=== PATIENT | male | born 1960 | race African-American/Black ===

== ENCOUNTER 2018-01-29 12:41 | Outpatient (CLI) | payer MEDICARE ==
--- NOTE | 2018-01-29 14:05 | RAD ---
PA AND LATERAL CHEST: HISTORY: Dyspnea. COMPARISON: 02/20/2017 FINDINGS: Heart size is within normal limits. There are postop sternotomy changes. The lungs are clear of inf iltrates. No signs of failure. IMPRESSION: No active intrathoracic disease. POS: [facility]
== END 2018-01-29 12:42 | disposition home or self-care (01) ==
LOC: RAD 12:41
PROVIDERS: ATTEND Internal Medicine
DX: R06.00 Dyspnea, unspecified (principal)
CPT/HCPCS: 71046

== ENCOUNTER 2019-01-20 07:08 | Emergency (ER) | payer MEDICARE ==
[2019-01-20] MEDS ORDERED: Proparacaine 0.5% Opth 15 ML BOT ONE (07:57)
[2019-01-20] MEDS ORDERED: Fluorescein Opthalmic Strip ONE (07:57)
== END 2019-01-20 08:40 | disposition home or self-care (01) ==
LOC: ERS 07:08
DX: H11.32 Conjunctival hemorrhage, left eye (principal)
CPT/HCPCS: 99282

== ENCOUNTER 2019-01-29 09:58 | Outpatient (CLI) | payer MEDICARE ==
--- NOTE | 2019-01-29 12:21 | RAD ---
CHEST TWO VIEWS: HISTORY: Dyspnea. COMPARISON: 01/29/2018 FINDINGS: The lung farah are clear of infiltrate. The heart and mediastinum are unremarkable. Postop sternot janny change. IMPRESSION: No acute process. POS: [facility]
== END 2019-01-29 09:59 | disposition home or self-care (01) ==
LOC: RAD 09:58
PROVIDERS: ATTEND Internal Medicine
DX: R06.00 Dyspnea, unspecified (principal)
CPT/HCPCS: 71046

== ENCOUNTER 2019-02-06 08:40 | Emergency (ER) | payer MEDICARE ==
[2019-02-06] MEDS ORDERED: Lidocaine 1% w/Epinephrine 1:100K 20 ML VIAL ONE (08:55)
== END 2019-02-06 09:23 | disposition home or self-care (01) ==
LOC: ERS 08:40
DX: L02.11 Cutaneous abscess of neck (principal); E11.9 Type 2 diabetes mellitus without complications; E78.5 Hyperlipidemia, unspecified; I10 Essential (primary) hypertension; J44.9 Chronic obstructive pulmonary disease, unspecified; Z79.82 Long term (current) use of aspirin; Z79.899 Other long term (current) drug therapy; Z79.51 Long term (current) use of inhaled steroids; Z79.52 Long term (current) use of systemic steroids
CPT/HCPCS: 10060; J2001

== ENCOUNTER 2019-07-20 08:30 | Emergency (ER) | payer MEDICARE ==
--- NOTE | 2019-07-20 09:34 | RAD ---
RADIOGRAPH CHEST 1 VIEW: DATE: 07/20/2019 HISTORY: 59-year-old male with dyspnea FINDINGS: There is hyperinflation of the lungs, consistent with COPD. There is no evidence of airspace density, pulmonary edema, or pneumothorax. The lateral costophrenic angles are not effaced. No cardiomegaly or mediastinal widening. Sternotomy wires. Prominent interstitial markings. IMPRESSION: 1) No acute cardiopulmonary findings. 2) emphysema. 3) evidence of previous open-heart surgery.
[2019-07-20 09:41] LABS: #Basophils 0.1 thou/uL (0.0-0.2); #Eosinphils 0.5 thou/uL (0.0-0.7); #Lymphocytes 2.7 thou/uL (1.20-3.40); #Neutrophils 7.2 thou/uL (1.40-6.50); %Basophils 0.8 % (0.0-1.0); %Eosinophils 4.4 % (0.0-10.0); %Lymphocytes 23.3 % (21.0-51.0); %Monocytes 8.8 % (0.0-10.0); %Neutrophils 62.6 % (42.0-75.0); Hemoglobin 17.7 g/dL (14.0-18.0); Mean Corpuscular HGB CONC 32.5 g/dL (32.0-36.0); Mean Corpuscular Hemoglobin 28.7 pg (27.0-31.0); Mean Corpuscular Volume 88.5 fL (78.0-98.0); Platelet Count 341 thou/uL (130-400); RBC Distribution Width 14.4 % (11.5-14.5); Red Blood Cell (RBC) Count 6.15 mill/uL (4.70-6.10); White Blood Cell (WBC) Count 11.5 thou/uL (4.8-10.8)
[2019-07-20 09:55] LABS: ALT (SGPT) 19 U/L (8-55); AST (SGOT) 22 U/L (5-34); Albumin 4.9 g/dL (3.5-5.0); Alkaline Phosphatase 111 U/L (40-110); Anion Gap 13 mmol/L (10-20); BUN (Urea Nitrogen) 11 mg/dL (8.4-25.7); Bilirubin, Total 0.8 mg/dL (0.2-1.2); Calc. Creatinine Clearance 0 mL/min (70-130); Calcium 9.9 mg/dL (7.8-10.44); Carbon Dioxide 30 mmol/L (22-29); Chloride 100 mmol/L (98-107); Estimated GFR-MDRD 82; Globulin 4.1 g/dL (2.4-3.5); Glucose 115 mg/dL (70-105); Potassium 4.4 mmol/L (3.5-5.1); Sodium 139 mmol/L (136-145)
[2019-07-20] MEDS ORDERED: Acetaminophen 500 MG TAB ONE (10:09)
[2019-07-20 10:18] LABS: CKMB 1.3 ng/mL (0-6.6)
--- NOTE | 2019-07-20 11:01 | CT ---
CT PULMONARY ANGIOGRAM WITH IV CONTRAST AND 3D POST PROCESSING: HISTORY: Cough. Shortness of breath. COMPARISON: 08/14/2016 FINDINGS: There is good contrast opacification of the pulmonary arterial vasculature without filling defects to suggest pulmonary embolism. There are vascular calcifications without aneurysmal dilatation of the t horacic aorta. No pleural or pericardial effusions are seen. There are scattered patchy densities in the lung farah bilaterally. Some of these have a nodular harish earance and are new since the last exam. IMPRESSION: 1. No CT evidence of pulmonary embolism. 2. Recommend a follow-up CT scan of the chest without contrast in six weeks, after a course of antibi otics to evaluate infiltrates vs nodularity. CODE T CODE LN POS: [facility]
[2019-07-20] MEDS ORDERED: Cefepime 2 GM VIAL ONE (11:21)
[2019-07-20] MEDS ORDERED: Aspirin Chewable 81 MG TAB ONE (11:21)
[2019-07-20] MEDS ORDERED: Sodium Chloride 0.9% 100 ML ONE (11:22)
[2019-07-20] MEDS ORDERED: Ondansetron ODT 4 MG TAB PO PRN (12:08)
[2019-07-20] MEDS ORDERED: Acetaminophen 325 MG TAB PO PRN (12:08)
--- NOTE | 2019-07-20 12:08 | PDOC.FPRHP ---
- Allergies/Adverse Reactions Allergies Allergy/AdvReac Type Severity Reaction Status Date / Time amoxicillin Allergy Verified 07/15/16 23:26 - Home Medications Medication Instructions Recorded Confirmed Type ALPRAZolam [Xanax] 1 mg PO BID 08/30/15 10/02/16 History Aspirin [Ecotrin Low Strength] 81 mg PO DAILY 08/30/15 10/02/16 History Atorvastatin Calcium [Lipitor] 40 mg PO DAILY 08/30/15 10/02/16 History Carvedilol [Coreg] 12.5 mg PO BID 08/30/15 10/02/16 History HYDROcodone Bit/APAP 10/325 [Lillian] 1 tab PO BID 08/30/15 10/02/16 History Montelukast Sodium [Singulair] 10 mg PO DAILY 08/30/15 10/02/16 History traZODone HCl 50 mg PO HS 08/30/15 10/02/16 History Roflumilast [Daliresp] 500 mcg PO DAILY #30 tablet 12/17/15 10/02/16 Rx Mirtazapine 15 mg PO HS 05/22/16 10/02/16 History predniSONE 5 mg PO DAILY 10/02/16 10/02/16 History Albuterol Sulfate [Albuterol 2.5 mg NEB Q6H PRN 10/06/16 10/06/16 History Sulfate Neb] Arformoterol [Brovana] 15 mcg NEB BID 10/06/16 10/06/16 History Levofloxacin [Levaquin] 750 mg PO 1200 #2 tab 10/06/16 Rx Tiotropium Mccormick [Spiriva] 18 mcg INH DAILY 10/06/16 10/06/16 History Tiotropium [Spiriva Handihaler] 18 mcg INH DAILY 10/06/16 10/06/16 History guaiFENesin ER [Mucinex] 1,200 mg PO Q12HR #30 tab 10/06/16 Rx predniSONE 40 mg PO DAILY #2 tab 10/06/16 Rx - History PMHx: PSHx: FHx: Social: - Vital signs BP: [] HR: [] RR: [] Tmax: [] Pox: []% on [] Wt: [] FMR H&P: Results - Labs Result Diagrams: 07/20/19 09:10 07/20/19 09:10 Lab results: WBC 11.5 thou/uL (4.8-10.8) H 07/20/19 09:10 Hgb 17.7 g/dL (14.0-18.0) 07/20/19 09:10 Hct 54.5 % (42.0-52.0) H 07/20/19 09:10 MCV 88.5 fL (78.0-98.0) 07/20/19 09:10 Plt Count 341 thou/uL (130-400) 07/20/19 09:10 Neutrophils % 62.6 % (42.0-75.0) 07/20/19 09:10 Sodium 139 mmol/L (136-145) 07/20/19 09:10 Potassium 4.4 mmol/L (3.5-5.1) 07/20/19 09:10 Chloride 100 mmol/L (98-107) 07/20/19 09:10 Carbon Dioxide 30 mmol/L (22-29) H 07/20/19 09:10 BUN 11 mg/dL (8.4-25.7) 07/20/19 09:10 Creatinine 1.12 mg/dL (0.7-1.3) 07/20/19 09:10 Glucose 115 mg/dL (70-105) H 07/20/19 09:10 Calcium 9.9 mg/dL (7.8-10.44) 07/20/19 09:10 Total Bilirubin 0.8 mg/dL (0.2-1.2) 07/20/19 09:10 AST 22 U/L (5-34) 07/20/19 09:10 ALT 19 U/L (8-55) 07/20/19 09:10 Alkaline Phosphatase 111 U/L (40-110) H 07/20/19 09:10 CK-MB (CK-2) 1.3 ng/mL (0-6.6) 07/20/19 09:10 Serum Total Protein 9.0 g/dL (6.0-8.3) H 07/20/19 09:10 Albumin 4.9 g/dL (3.5-5.0) 07/20/19 09:10 FMR H&P: Upper Level - Plan Date/Time: 07/20/19 1208 I, [], have evaluated this patient and agree with findings/plan as outlined by hospitality internship resident. Pertinent changes/additions are listed here.
[2019-07-20] MEDS ORDERED: Magnesium 2 GM/50 ML BAG (IN WATER) ONE (12:21)
[2019-07-20 12:56] LABS: Troponin I Less than 0.010 ng/mL (< 0.028)
[2019-07-20] MEDS ORDERED: Vancomycin 1.5 GRAM/300 ML BAG 1.5 GM in Premix Bag 1 BAG IVPB SCH (14:45)
[2019-07-20] MEDS ORDERED: HYDROcodone/Acetaminophen 5/325 mg Tablet ONE (15:20)
[2019-07-20 15:51] LABS: Troponin I Less than 0.010 ng/mL (< 0.028)
[2019-07-20] MEDS ORDERED: Cefepime 2 GM in Sodium Chloride 0.9% 100 ML IVPB SCH (23:00)
[2019-07-21] MEDS ORDERED: Enoxaparin Sodium 40 MG/0.4 ML SYRINGE SC SCH (09:00)
== END 2019-07-20 16:50 | disposition short-term general hospital (02) ==
LOC: ERS 08:30 → UNDOADMIN 11:35 → ERHOLD 11:35
DX: J18.9 Pneumonia, unspecified organism (principal); R79.89 Other specified abnormal findings of blood chemistry; E11.9 Type 2 diabetes mellitus without complications; E78.5 Hyperlipidemia, unspecified; E78.00 Pure hypercholesterolemia, unspecified; I10 Essential (primary) hypertension; Z79.899 Other long term (current) drug therapy; Z79.51 Long term (current) use of inhaled steroids
CPT/HCPCS: 36415; 71045; 71275; 80053; 82553; 84145; 84484; 85025; 87040; 93005; 94640; 96365; 96366; 96367; 96368; J0692; J1956; J3475; J3490; J7620

== ENCOUNTER 2019-08-02 07:32 | Emergency (ER) | payer MEDICARE ==
[2019-08-02 08:12] LABS: #Basophils 0.1 thou/uL (0.0-0.2); #Eosinphils 0.2 thou/uL (0.0-0.7); #Lymphocytes 0.5 thou/uL (1.20-3.40); #Monocytes 0.4 thou/uL (0.11-0.59); #Neutrophils 9.3 thou/uL (1.40-6.50); %Basophils 1.2 % (0.0-1.0); %Eosinophils 1.7 % (0.0-10.0); %Lymphocytes 4.5 % (21.0-51.0); %Monocytes 3.5 % (0.0-10.0); Hemoglobin 15.5 g/dL (14.0-18.0); Mean Corpuscular HGB CONC 32.4 g/dL (32.0-36.0); Mean Corpuscular Hemoglobin 27.9 pg (27.0-31.0); Mean Corpuscular Volume 86.1 fL (78.0-98.0); Mean Platelet Volume 8.4 fL (7.4-10.4); Platelet Count 209 thou/uL (130-400); RBC Distribution Width 14.1 % (11.5-14.5); Red Blood Cell (RBC) Count 5.54 mill/uL (4.70-6.10); White Blood Cell (WBC) Count 10.5 thou/uL (4.8-10.8)
--- NOTE | 2019-08-02 08:18 | RAD ---
XR Chest Pa Lat STANDARD History: Bilateral lung transplant. Dyspnea Comparison: Radiograph 2017 and 2019 Findings: Mild fibrotic changes peripheral aspect of the upper lobes. No pneumothorax. No confluent a irspace consolidation. Multiple midline sternotomy wires. Impression: No acute intrathoracic abnormality. No definite evidence for transplant rejection.
[2019-08-02 08:31] LABS: ALT (SGPT) 39 U/L (8-55); AST (SGOT) 30 U/L (5-34); Albumin 4.1 g/dL (3.5-5.0); Alkaline Phosphatase 109 U/L (40-110); Anion Gap 12 mmol/L (10-20); BUN (Urea Nitrogen) 9 mg/dL (8.4-25.7); Bilirubin, Total 0.6 mg/dL (0.2-1.2); Calc. Creatinine Clearance 0 mL/min (70-130); Carbon Dioxide 30 mmol/L (22-29); Chloride 91 mmol/L (98-107); Estimated GFR-MDRD Greater than 90; Globulin 3.5 g/dL (2.4-3.5); Glucose 134 mg/dL (70-105); Potassium 4.1 mmol/L (3.5-5.1); Protein, Total 7.6 g/dL (6.0-8.3); Sodium 129 mmol/L (136-145)
[2019-08-02] MEDS ORDERED: methylPREDNISolone Sod Succ/PF 125 MG/2 ML VIAL ONE (09:16)
[2019-08-02] MEDS ORDERED: HYDROcodone/Acetaminophen 10/325 mg Tablet ONE (11:22)
== END 2019-08-02 11:34 | disposition short-term general hospital (02) ==
LOC: ERS 07:32
DX: J44.1 Chronic obstructive pulmonary disease with (acute) exacerbation (principal); E11.9 Type 2 diabetes mellitus without complications; E78.5 Hyperlipidemia, unspecified; E78.00 Pure hypercholesterolemia, unspecified; I10 Essential (primary) hypertension; Z79.899 Other long term (current) drug therapy; Z79.82 Long term (current) use of aspirin; Z79.51 Long term (current) use of inhaled steroids
CPT/HCPCS: 36415; 71046; 80053; 83880; 84484; 85025; 93005; 96374; J2930

== ENCOUNTER 2019-08-12 15:53 | Emergency (ER) | payer MEDICARE ==
[2019-08-12 17:46] LABS: #Eosinphils 0.1 thou/uL (0.0-0.7); #Lymphocytes 0.6 thou/uL (1.20-3.40); #Monocytes 0.3 thou/uL (0.11-0.59); #Neutrophils 8.9 thou/uL (1.40-6.50); %Basophils 0.2 % (0.0-1.0); %Eosinophils 0.8 % (0.0-10.0); %Lymphocytes 5.6 % (21.0-51.0); %Monocytes 3.4 % (0.0-10.0); %Neutrophils 90.1 % (42.0-75.0); Hemoglobin 14.9 g/dL (14.0-18.0); Mean Corpuscular HGB CONC 33.3 g/dL (32.0-36.0); Mean Corpuscular Hemoglobin 29.4 pg (27.0-31.0); Mean Corpuscular Volume 88.3 fL (78.0-98.0); Mean Platelet Volume 7.4 fL (7.4-10.4); Platelet Count 310 thou/uL (130-400); RBC Distribution Width 14.7 % (11.5-14.5); Red Blood Cell (RBC) Count 5.05 mill/uL (4.70-6.10); White Blood Cell (WBC) Count 9.9 thou/uL (4.8-10.8)
--- NOTE | 2019-08-12 18:05 | RAD ---
CHEST ONE VIEW: 08/12/19 INDICATION: Difficulty breathing with history of a lung transplant. COMPARISON: Prior exam dated 08/02/19. FINDINGS: Midline sternotomy changes are similar appearing. Left hilar surgical clips are stable appearing. Chr onic increased interstitial lung markings are stable appearing. No confluent air space opacity is no adebayo. There is a tiny left pleural effusion which is near. No pneumothorax is evident. No acute osseo us abnormality is evident. IMPRESSION: 1. Stable coarse interstitial lung markings without confluent air space opacity. 2. New small left pleural effusion. POS: [facility]
[2019-08-12 18:09] LABS: ALT (SGPT) 31 U/L (8-55); AST (SGOT) 38 U/L (5-34); Albumin 4.3 g/dL (3.5-5.0); Alkaline Phosphatase 101 U/L (40-110); Anion Gap 15 mmol/L (10-20); BUN (Urea Nitrogen) 17 mg/dL (8.4-25.7); Bilirubin, Total 0.8 mg/dL (0.2-1.2); CK (CPK) 58 U/L (30-200); Calc. Creatinine Clearance 0 mL/min (70-130); Calcium 9.2 mg/dL (7.8-10.44); Carbon Dioxide 29 mmol/L (22-29); Chloride 91 mmol/L (98-107); Estimated GFR-MDRD Greater than 90; Globulin 3.7 g/dL (2.4-3.5); Glucose 89 mg/dL (70-105); Potassium 5.4 mmol/L (3.5-5.1); Sodium 130 mmol/L (136-145)
[2019-08-12] MEDS ORDERED: Dexamethasone 4 mg/ml Vial ONE (18:23)
== END 2019-08-12 20:01 | disposition home or self-care (01) ==
LOC: ERS 15:53
DX: J44.1 Chronic obstructive pulmonary disease with (acute) exacerbation (principal); E11.9 Type 2 diabetes mellitus without complications; E78.5 Hyperlipidemia, unspecified; I10 Essential (primary) hypertension; Z79.891 Long term (current) use of opiate analgesic; Z79.82 Long term (current) use of aspirin; Z79.51 Long term (current) use of inhaled steroids
CPT/HCPCS: 71045; 80053; 82550; 83880; 84484; 85025; 93005; 94640; 94760; 96361; 96374; J1100; J7620

== ENCOUNTER 2019-08-13 10:06 | Emergency (ER) | payer MEDICARE ==
[2019-08-13] MEDS ORDERED: Albuterol Sulfate 2.5 mg/3 ml Neb ONE ×4 (10:37→12:07)
[2019-08-13] MEDS ORDERED: Ipratropium Bromide 2.5 ml Neb ONE (10:37)
[2019-08-13 10:48] LABS: Actual Bicarbonate (HCO3a) 24.1 mEq/L (22-28); Analyzer IN Cardio ER; Base Excess (BEa) -1.7 mEq/L (-2.0 to +3.0); CO2 Tension 45.1 mmHg (35.0-45.0); Calcium, Ionized 1.15 mmol/L (1.12-1.30); Carboxyhemoglobin (COHb) 0.6 gm% (0.0-3.0); Hemoglobin (Hb) 13.5 g/dL (14.0-18.0); O2 Tension (PaO2) 111.9 mmHg (80.0-100.0); pH, Arterial 7.35 (7.35-7.45)
[2019-08-13 10:52] LABS: ALV-art Gradient 88.405 (0-20); Puncture Site LRA
[2019-08-13 11:08] LABS: Hemoglobin 13.3 g/dL (14.0-18.0); Mean Corpuscular Hemoglobin 29.1 pg (27.0-31.0); Mean Platelet Volume 7.4 fL (7.4-10.4); Platelet Count 302 thou/uL (130-400); RBC Distribution Width 14.8 % (11.5-14.5); Red Blood Cell (RBC) Count 4.59 mill/uL (4.70-6.10); White Blood Cell (WBC) Count 4.5 thou/uL (4.8-10.8)
[2019-08-13 11:14] LABS: PTT 23.4 SEC (22.9-36.1); Prothrombin Time 13.4 SEC (12.0-14.7)
[2019-08-13 11:15] LABS: D-Dimer Test 0.34 *mcg/mL (0.27-0.43)
[2019-08-13 11:29] LABS: Band 10 % (5-11); Lymphocytes 1 % (21-51); MDiff Complete? YES; Monocytes 2 % (0-10); Neutrophil 84 % (42-75); Platelet Morphology Comment Appears Adequate; Polychromasia SLIGHT = 2-3 cells (100X) (0-2/hpf); Reactive Lymphocytes 3 % (0-10)
[2019-08-13 11:35] LABS: ALT (SGPT) 29 U/L (8-55); AST (SGOT) 29 U/L (5-34); Albumin 4.2 g/dL (3.5-5.0); Alkaline Phosphatase 96 U/L (40-110); Anion Gap 17 mmol/L (10-20); BUN (Urea Nitrogen) 22 mg/dL (8.4-25.7); Bilirubin, Total 0.8 mg/dL (0.2-1.2); Calc. Creatinine Clearance 0 mL/min (70-130); Calcium 8.8 mg/dL (7.8-10.44); Carbon Dioxide 25 mmol/L (22-29); Chloride 93 mmol/L (98-107); Estimated GFR-MDRD 89; Globulin 2.5 g/dL (2.4-3.5); Glucose 176 mg/dL (70-105); Potassium 4.8 mmol/L (3.5-5.1); Protein, Total 6.7 g/dL (6.0-8.3); Sodium 130 mmol/L (136-145)
--- NOTE | 2019-08-13 11:43 | RAD ---
CHEST ONE VIEW: HISTORY: Acute dyspnea. COMPARISON: Radiograph from the prior day. FINDINGS: A catheter projects over the left hemithorax, of unknown significance. There is some scarring in both lung bases. No pneumothorax or consolidation. Trace left effusion. IMPRESSION: 1. Catheter projects over the left lateral hemithorax, of unknown significance. 2. Trace left effusion is improving. POS: [facility]
[2019-08-13] MEDS ORDERED: Morphine 4 MG/ML VIAL ONE (13:27)
== END 2019-08-13 14:23 | disposition short-term general hospital (02) ==
LOC: ERS 10:06
DX: R06.00 Dyspnea, unspecified (principal); E11.9 Type 2 diabetes mellitus without complications; E78.5 Hyperlipidemia, unspecified; E78.00 Pure hypercholesterolemia, unspecified; I10 Essential (primary) hypertension; J44.9 Chronic obstructive pulmonary disease, unspecified; Z79.51 Long term (current) use of inhaled steroids; Z79.899 Other long term (current) drug therapy; Z79.82 Long term (current) use of aspirin; Z79.891 Long term (current) use of opiate analgesic
CPT/HCPCS: 36415; 71045; 80053; 82805; 83880; 84484; 85025; 85379; 93005; 94640; 94644; 96374; J2270; J7611

== ENCOUNTER 2019-08-28 21:11 | Emergency (ER) | payer MEDICARE ==
[2019-08-28] MEDS ORDERED: Naloxone HCl 0.4 mg/ml Vial ONE (21:41)
[2019-08-28 22:09] LABS: #Basophils 0.1 thou/uL (0.0-0.2); #Eosinphils 0.1 thou/uL (0.0-0.7); #Lymphocytes 0.6 thou/uL (1.20-3.40); #Monocytes 0.7 thou/uL (0.11-0.59); #Neutrophils 11.2 thou/uL (1.40-6.50); %Basophils 0.5 % (0.0-1.0); %Eosinophils 0.6 % (0.0-10.0); %Lymphocytes 4.5 % (21.0-51.0); %Monocytes 5.2 % (0.0-10.0); %Neutrophils 89.3 % (42.0-75.0); Hemoglobin 13.4 g/dL (14.0-18.0); Mean Corpuscular HGB CONC 31.5 g/dL (32.0-36.0); Mean Corpuscular Hemoglobin 29.5 pg (27.0-31.0); Mean Corpuscular Volume 93.6 fL (78.0-98.0); Mean Platelet Volume 8.2 fL (7.4-10.4); Platelet Count 201 thou/uL (130-400); RBC Distribution Width 14.6 % (11.5-14.5); Red Blood Cell (RBC) Count 4.53 mill/uL (4.70-6.10); White Blood Cell (WBC) Count 12.5 thou/uL (4.8-10.8)
--- NOTE | 2019-08-28 22:11 | RAD ---
XR Chest 1 View Portable HISTORY: Dyspnea COMPARISON: 08/13/2019 FINDINGS: The heart size is normal. Changes of median sternotomy again seen. Chronic parenchymal flores ges are stable. The lungs are well expanded without focal areas of consolidation, pneumothorax or pleural effusions. IMPRESSION: No radiographic evidence of acute cardiopulmonary process.
[2019-08-28] MEDS ORDERED: methylPREDNISolone Sod Succ/PF 125 MG/2 ML VIAL ONE (22:18)
[2019-08-28 22:29] LABS: Actual Bicarbonate (HCO3a) 42.2 mEq/L (22-28); Analyzer IN Cardio ER; Base Excess (BEa) 11.7 mEq/L (-2.0 to +3.0); Calcium, Ionized 1.19 mmol/L (1.12-1.30); Carboxyhemoglobin (COHb) 0.6 gm% (0.0-3.0); Hemoglobin (Hb) 12.8 g/dL (14.0-18.0); O2 Tension (PaO2) 89.1 mmHg (80.0-100.0); Potassium - ABG Lab 4.32 mmol/L (3.70-5.30); pH, Arterial 7.28 (7.35-7.45)
[2019-08-28 22:40] LABS: ALT (SGPT) 19 U/L (8-55); AST (SGOT) 41 U/L (5-34); Albumin 4.2 g/dL (3.5-5.0); Alkaline Phosphatase 111 U/L (40-110); BUN (Urea Nitrogen) 11 mg/dL (8.4-25.7); Bilirubin, Total 0.3 mg/dL (0.2-1.2); CK (CPK) 60 U/L (30-200); Calc. Creatinine Clearance 0 mL/min (70-130); Calcium 9.1 mg/dL (7.8-10.44); Estimated GFR-MDRD Greater than 90; Globulin 3.5 g/dL (2.4-3.5); Glucose 209 mg/dL (70-105); Lipase 11 U/L (8-78); Protein, Total 7.7 g/dL (6.0-8.3)
[2019-08-28 22:41] LABS: Anion Gap 17 mmol/L (10-20); Carbon Dioxide 34 mmol/L (22-29); Chloride 87 mmol/L (98-107); Sodium 132 mmol/L (136-145)
[2019-08-28 22:44] LABS: ALV-art Gradient 80.975 (0-20); CO2 Tension 92.1 mmHg (35.0-45.0); Puncture Site RRA
[2019-08-28] MEDS ORDERED: Calcium Chloride 1 GM/10 ML Abboject SYRINGE ONE (23:58)
[2019-08-28] MEDS ORDERED: Dextrose 50% Abboject 50 ML SYRINGE ONE (23:58)
[2019-08-28] MEDS ORDERED: Insulin Regular 300 UNITS/3 ML VIAL ONE (23:58)
== END 2019-08-29 02:07 | disposition short-term general hospital (02) ==
LOC: ERS 21:11
DX: R06.00 Dyspnea, unspecified (principal); E11.9 Type 2 diabetes mellitus without complications; E78.5 Hyperlipidemia, unspecified; I10 Essential (primary) hypertension; E78.00 Pure hypercholesterolemia, unspecified; J44.9 Chronic obstructive pulmonary disease, unspecified; Z79.82 Long term (current) use of aspirin; Z79.899 Other long term (current) drug therapy; Z79.891 Long term (current) use of opiate analgesic
CPT/HCPCS: 36416; 71045; 80053; 82550; 82805; 83690; 83880; 84484; 85025; 93005; 94644; 94660; 94760; 96374; 96375; J1815; J2310; J2930; J7620

== ENCOUNTER 2019-09-18 08:44 | Emergency (ER) | payer MEDICARE ==
--- NOTE | 2019-09-18 09:36 | RAD ---
Portable frontal chest radiograph: 09/18/2019 COMPARISON: 08/28/2019 HISTORY: Cough FINDINGS: Stable midline sternotomy wires. Stable mild increase in interstitial density with pulmonar y hyperinflation. No pneumothorax, pleural fluid, focal consolidation, or alveolar edema. IMPRESSION: Chronic findings as detailed above. No acute findings.
[2019-09-18] MEDS ORDERED: Dexamethasone 4 mg/ml Vial ONE (10:02)
[2019-09-18 10:04] LABS: ALT (SGPT) 36 U/L (8-55); AST (SGOT) 30 U/L (5-34); Albumin 4.3 g/dL (3.5-5.0); Alkaline Phosphatase 92 U/L (40-110); Anion Gap 14 mmol/L (10-20); BUN (Urea Nitrogen) 7 mg/dL (8.4-25.7); Bilirubin, Total 0.5 mg/dL (0.2-1.2); Calc. Creatinine Clearance 0 mL/min (70-130); Calcium 9.6 mg/dL (7.8-10.44); Carbon Dioxide 35 mmol/L (22-29); Chloride 97 mmol/L (98-107); Estimated GFR-MDRD Greater than 90; Globulin 2.4 g/dL (2.4-3.5); Glucose 162 mg/dL (70-105); Potassium 3.9 mmol/L (3.5-5.1); Protein, Total 6.7 g/dL (6.0-8.3); Sodium 142 mmol/L (136-145)
[2019-09-18 10:17] LABS: #Eosinphils 0.1 thou/uL (0.0-0.7); #Lymphocytes 0.8 thou/uL (1.20-3.40); #Monocytes 0.9 thou/uL (0.11-0.59); #Neutrophils 9.9 thou/uL (1.40-6.50); %Basophils 0.2 % (0.0-1.0); %Eosinophils 0.5 % (0.0-10.0); %Lymphocytes 6.6 % (21.0-51.0); %Monocytes 7.6 % (0.0-10.0); %Neutrophils 85.1 % (42.0-75.0); Hemoglobin 13.9 g/dL (14.0-18.0); Mean Corpuscular HGB CONC 33.3 g/dL (32.0-36.0); Mean Corpuscular Hemoglobin 30.6 pg (27.0-31.0); Mean Corpuscular Volume 91.7 fL (78.0-98.0); Mean Platelet Volume 8.3 fL (7.4-10.4); Platelet Count 172 thou/uL (130-400); RBC Distribution Width 16.3 % (11.5-14.5); Red Blood Cell (RBC) Count 4.54 mill/uL (4.70-6.10); White Blood Cell (WBC) Count 11.7 thou/uL (4.8-10.8)
[2019-09-18 10:27] LABS: CK (CPK) 72 U/L (30-200); Lipase 13 U/L (8-78)
== END 2019-09-18 13:10 | disposition home or self-care (01) ==
LOC: ERS 08:44
DX: J44.1 Chronic obstructive pulmonary disease with (acute) exacerbation (principal); E11.622 Type 2 diabetes mellitus with other skin ulcer; L89.152 Pressure ulcer of sacral region, stage 2; I10 Essential (primary) hypertension; E78.5 Hyperlipidemia, unspecified; E78.00 Pure hypercholesterolemia, unspecified
CPT/HCPCS: 36415; 71045; 80053; 82550; 83605; 83690; 83880; 84484; 85025; 87040; 93005; 94640; 96360; 96361; J1100; J7620

== ENCOUNTER 2019-09-20 08:52 | Inpatient (IN) | payer MEDICARE ==
[2019-09-20] MEDS ORDERED: Lorazepam 2 MG/ML VIAL ONE ×3 (08:56→11:23)
[2019-09-20] MEDS ORDERED: Propofol 1,000 MG/100 ML VIAL IV ONE (09:05)
--- NOTE | 2019-09-20 09:16 | RAD ---
Portable chest: HISTORY: Postintubation COMPARISON: 09/18/2019 FINDINGS: Lung farah are clear. Heart and mediastinum appear unremarkable. Postop sternotomy change. Vascularity is normal. ET tube is in place with tip above iram. Visualized osseous structures unremarkable. IMPRESSION: No acute finding
[2019-09-20 09:21] LABS: Actual Bicarbonate (HCO3a) 31.4 mEq/L (22-28); Analyzer IN Cardio ER; Base Excess (BEa) 6.9 mEq/L (-2.0 to +3.0); CO2 Tension 44.3 mmHg (35.0-45.0); Calcium, Ionized 1.12 mmol/L (1.12-1.30); Hemoglobin (Hb) 12.4 g/dL (14.0-18.0); O2 Tension (PaO2) 455.3 mmHg (80.0-100.0); Potassium - ABG Lab 3.05 mmol/L (3.70-5.30); pH, Arterial 7.47 (7.35-7.45)
[2019-09-20 09:22] LABS: #Lymphocytes 0.8 thou/uL (1.20-3.40); #Monocytes 0.9 thou/uL (0.11-0.59); #Neutrophils 9.4 thou/uL (1.40-6.50); %Basophils 0.3 % (0.0-1.0); %Eosinophils 0.2 % (0.0-10.0); %Lymphocytes 7.5 % (21.0-51.0); %Monocytes 7.7 % (0.0-10.0); %Neutrophils 84.3 % (42.0-75.0); Hemoglobin 12.9 g/dL (14.0-18.0); Mean Corpuscular HGB CONC 32.9 g/dL (32.0-36.0); Mean Corpuscular Hemoglobin 30.1 pg (27.0-31.0); Mean Corpuscular Volume 91.3 fL (78.0-98.0); Mean Platelet Volume 8.8 fL (7.4-10.4); Platelet Count 176 thou/uL (130-400); Red Blood Cell (RBC) Count 4.28 mill/uL (4.70-6.10); White Blood Cell (WBC) Count 11.1 thou/uL (4.8-10.8)
[2019-09-20 09:26] LABS: ALV-art Gradient 59.725 (0-20); Puncture Site RRA
[2019-09-20] MEDS ORDERED: Fentanyl 20 mcg/ml (100 ml CADD) IV PRN (09:30)
[2019-09-20 09:37] LABS: Acetaminophen Less than 6.0 mcg/mL (10.0-30.0); Alcohol Less than 10 mg/dL (Less than 10); CK (CPK) 41 U/L (30-200); Salicylate Less than 8.0 mg/dL (15.0-30.0)
[2019-09-20 09:38] LABS: ALT (SGPT) 27 U/L (8-55); AST (SGOT) 26 U/L (5-34); Albumin 3.7 g/dL (3.5-5.0); Alkaline Phosphatase 75 U/L (40-110); Anion Gap 14 mmol/L (10-20); BUN (Urea Nitrogen) 11 mg/dL (8.4-25.7); Bilirubin, Total 0.4 mg/dL (0.2-1.2); Calc. Creatinine Clearance 0 mL/min (70-130); Calcium 8.7 mg/dL (7.8-10.44); Carbon Dioxide 35 mmol/L (22-29); Chloride 94 mmol/L (98-107); Estimated GFR-MDRD Greater than 90; Globulin 2.2 g/dL (2.4-3.5); Glucose 122 mg/dL (70-105); Potassium 4.7 mmol/L (3.5-5.1); Protein, Total 5.9 g/dL (6.0-8.3); Sodium 138 mmol/L (136-145)
[2019-09-20] MEDS ORDERED: Lorazepam 2 MG/ML VIAL SLOW IVP SCH (09:45)
[2019-09-20] MEDS ORDERED: Rocuronium Bromide 50 MG/5 ML VIAL IVP SCH (09:45)
[2019-09-20] MEDS ORDERED: Ketamine 50 MG/ML (10ML VIAL) SLOW IVP SCH (09:45)
[2019-09-20 09:55] LABS: Bilirubin Negative (Negative); Blood, Urine Negative (Negative); Clarity Clear (Clear); Glucose, Urine (Dipstick) Normal (Negative); Leukocyte Negative Leu/uL (Negative); Nitrite Negative (Negative); Protein, Urine (Dipstick) Negative (Neg-Trace); Urobilinogen Normal mg/dL (Less than 2)
--- NOTE | 2019-09-20 10:06 | CT ---
CT Brain WO Con History: Hypoglycemia. Altered mental status Comparison: None. Findings: No acute hemorrhage or infarct. No midline shift or mass effect. Ventricular size and extra -axial CSF spaces are normal. Calvarium is intact. Paranasal sinuses and mastoids are clear. Impression: No acute intracranial abnormality.
[2019-09-20 10:07] LABS: Amphetamine Not Detected (NotDetected); Barbiturates Screen Not Detected (NotDetected); Benzodiazepine Screen Not Detected (NotDetected); Cocaine Metabolite Screen Not Detected (NotDetected); Medtox Control Line Valid? VALID (VALID); Medtox Reader # READER 1; Methadone Not Detected (NotDetected); Methamphetamine Not Detected (NotDetected); Opiate Screen Detected (NotDetected); Oxycodone Screen Not Detected (NotDetected); Phencyclidine (PCP) Not Detected (NotDetected); THC/Cannabinoid Screen Not Detected (NotDetected); Tricyclic Screen Not Detected (NotDetected)
--- NOTE | 2019-09-20 11:03 | PDOC.FPRHP ---
- History of Present Illness Chief Complaint: found down History of Present Illness: Mr. Turcios is a 59yoM with a PMH significant for severe COPD requiring double lung transplant, DMII, HTN, and anxiety/depression who presents to the ED via EMS after being found down in his home this morning. He was last seen normal at 10pm last night. Upon arrival EMS noted his blood glucose to be 24 and gave a dose of D10 and Glucagon, he was still unresponsive. On arrival to the ED he was still unresponsive and having seizure like activity which prompted the ER doc to intubate him, sedate him, and start a D5 1/2NS drip. The patient is currently intubated and sedated and is unable to give history. Additional information was gathered from medical records and family members. He has a history of a double lung transplant in 2017 for severe COPD. He has a diagnosis of DM II and takes insulin. He had a hemicolectomy for significant lower GI bleeding. He takes medications for blood pressure, anxiety and depression, and GERD. Patient's family reports he has had a productive cough. ED Course: Intubated and sedated, 2L NS, D5 1/2 NS started at 125, Fentanyl gtt, rocuronium , ketamine, and lorazepam. - Allergies/Adverse Reactions Allergies Allergy/AdvReac Type Severity Reaction Status Date / Time amoxicillin Allergy Verified 07/15/16 23:26 - Home Medications Medication Instructions Recorded Confirmed Type Aspirin [Ecotrin Low Strength] 81 mg PO DAILY 08/30/15 10/02/16 History Atorvastatin Calcium [Lipitor] 40 mg PO DAILY 08/30/15 10/02/16 History traZODone HCl 50 mg PO HS 08/30/15 10/02/16 History Albuterol Sulfate [Albuterol 2.5 mg NEB Q6H PRN 10/06/16 10/06/16 History Sulfate Neb] Albuterol Sulfate [Ventolin Hfa] 18 gm IH 09/20/19 History Amlodipine [Norvasc] 5 mg PO DAILY 09/20/19 History Azithromycin 250 mg PO MWF 09/20/19 History Cyclobenzaprine [Flexeril] 10 mg PO PRN PRN 09/20/19 History DULoxetine [Cymbalta] 60 mg PO DAILY 09/20/19 History Fludrocortisone Acetate [Florinef] 0.1 mg PO DAILY 09/20/19 History Metoprolol Succinate [Toprol XL] 100 mg PO DAILY 09/20/19 History Pantoprazole [Protonix] 40 mg PO DAILY 09/20/19 History Sulfamethoxazole/Trimethoprim 1 tab PO MWF 09/20/19 History [Bactrim DS] Tacrolimus [Prograf] 0.5 mg PO QAM 09/20/19 History Verapamil [Calan] 120 mg PO 09/20/19 History Voriconazole 200 mg PO DAILY 09/20/19 History predniSONE [Prednisone] 10 mg PO DAILY 09/20/19 History valGANciclovir HCl [Valcyte] 450 mg PO BID 09/20/19 History - History PMHx: DM II Major depressive disorder Anxiety JOSE HTN S/p lung transplantation GERD PSHx: Colonoscopy 2014 Disc fusion 2002 Double lung transplant 2017 R Hemicolectomy 2015 Coronary artery stent 2009 FHx: COPD CHF Social: Former smoker, quit 2009. No alcohol or illicit drug use. - Review of Systems ROS unobtainable: due to endotracheal tube - Vital signs 62Kg, BP: 116/80, Pulse: 75, Resp: 18, Temp: 95.9 (Criticore Temp), Pain: 0 FLACC, O2 sat: 97 on (Ventilator SIMV 18, 500, 10/5, 40%FiO2) - Physical Exam -Constitutional: Intubated and sedated HEENT: normocephalic and atraumatic, PERRLA, conjunctiva clear, normal nasal mucosa, MMM Neck: trachea midline Heart: RRR, normal S1/S2, no murmurs/rubs/gallops, pulses present, no edema Lungs: CTAB, good air movement, no rales/rhonchi, no wheezing Abdomen: soft, bowel sounds present, no masses/distention Musculoskeletal: normal structure -Neurological: Unable to assess Skin: no rash/lesions, capillary refill <2 seconds Heme/Lymphatic: no unusual bruising or bleeding, no purpura FMR H&P: Results - Labs Result Diagrams: 09/20/19 09:13 09/20/19 09:13 Lab results: WBC 11.1 thou/uL (4.8-10.8) H 09/20/19 09:13 Hgb 12.9 g/dL (14.0-18.0) L 09/20/19 09:13 Hct 39.1 % (42.0-52.0) L 09/20/19 09:13 MCV 91.3 fL (78.0-98.0) 09/20/19 09:13 Plt Count 176 thou/uL (130-400) 09/20/19 09:13 Neutrophils % 84.3 % (42.0-75.0) H 09/20/19 09:13 ABG pH 7.47 (7.35-7.45) H 09/20/19 09:20 ABG pCO2 44.3 mmHg (35.0-45.0) 09/20/19 09:20 ABG pO2 455.3 mmHg (80.0-100.0) H 09/20/19 09:20 Sodium 138 mmol/L (136-145) 09/20/19 09:13 Potassium 4.7 mmol/L (3.5-5.1) 09/20/19 09:13 Chloride 94 mmol/L (98-107) L 09/20/19 09:13 Carbon Dioxide 35 mmol/L (22-29) H 09/20/19 09:13 BUN 11 mg/dL (8.4-25.7) 09/20/19 09:13 Creatinine 0.69 mg/dL (0.7-1.3) L 09/20/19 09:13 Glucose 122 mg/dL (70-105) H 09/20/19 09:13 Calcium 8.7 mg/dL (7.8-10.44) 09/20/19 09:13 Total Bilirubin 0.4 mg/dL (0.2-1.2) 09/20/19 09:13 AST 26 U/L (5-34) 09/20/19 09:13 ALT 27 U/L (8-55) 09/20/19 09:13 Alkaline Phosphatase 75 U/L (40-110) 09/20/19 09:13 Creatine Kinase 41 U/L (30-200) 09/20/19 09:13 Serum Total Protein 5.9 g/dL (6.0-8.3) L 09/20/19 09:13 Albumin 3.7 g/dL (3.5-5.0) 09/20/19 09:13 Urine Ketones Negative mg/dL (Negative) 09/20/19 09:19 Urine Blood Negative (Negative) 09/20/19 09:19 Urine Nitrite Negative (Negative) 09/20/19 09:19 Ur Leukocyte Esterase Negative Victor M/uL (Negative) 09/20/19 09:19 - Radiology Interpretation CT scan - head Status: report reviewed by me (Impression: No acute intracranial abnormality) Chest x-ray Status: report reviewed by me (IMPRESSION: No acute finding) FMR H&P: A/P - Problem List (1) Seizure Current Visit: Yes Status: Acute Code(s): R56.9 - UNSPECIFIED CONVULSIONS (2) Hypoglycemia Current Visit: Yes Status: Acute Code(s): E16.2 - HYPOGLYCEMIA, UNSPECIFIED (3) Altered mental state Current Visit: Yes Status: Acute Code(s): R41.82 - ALTERED MENTAL STATUS, UNSPECIFIED (4) Anxiety and depression Current Visit: No Status: Chronic (5) Coronary artery disease Current Visit: No Status: Chronic Code(s): I25.10 - ATHSCL HEART DISEASE OF [place] CORONARY ARTERY W/O ANG PCTRS (6) HLD (hyperlipidemia) Current Visit: No Status: Chronic Code(s): E78.5 - HYPERLIPIDEMIA, UNSPECIFIED Qualifiers: (7) HTN (hypertension) Current Visit: No Status: Chronic Code(s): I10 - ESSENTIAL (PRIMARY) HYPERTENSION Qualifiers: - Plan Acute hypoxic respiratory failure Intubated - On Fentanyl for sedation. - Dr. Judge consulted, appreciate recommendations. AMS, found down Hypoglycemic - Blood glucose responded to D10 and D5 1/2 NS. Will continue @ 100mL/hour with q1hr accuchecks until stable. - Unknown dosage of insulin taken last night, unknown amount of oral intake. - Will admit and monitor in the CCU. - Suspect symptoms are related to insulin use. COPD s/p Lung Transplantation - Patient on ventilator. Will schedule nebulizers on vent. - Will add steroids and Levaquin, family reports productive cough. - Will continue anti-rejection meds. Possible seizures - Lorazepam prn for seizure activity. - EEG ordered, however our facility does not perform them on weekends. Will obtain in the morning. - Seizure precautions. DM II - Hold diabetes medications at this time Hypertension - Hold antihypertensives, patient has been normotensive. Anxiety and depression - Will resume home meds Disposition/LOS: Dispo: Guarded, inpatient. LOS will be >48 hours. VTE: Lovenox, GI ppx: Pepcid Code: Full PCP: CHRISTOPHER FMR H&P: Upper Level - Plan Date/Time: 09/20/19 1101 I, Len Espinoza MD, have evaluated this patient and agree with findings/plan as outlined by project intern resident. Pertinent changes/additions are listed here. Kaleb Turcios is a 59 year old M with a PMH of end stage COPD s/p double lung transplant on immunosuppressants, insulin-dependent DM2, HTN, anxiety/ depression who was brought to the ED due to AMS at home. He was last seen normal by family last night around 2200. He was found this morning, difficult to arouse. When EMS arrived to home, his blood glucose was 24. He was given a dose of D10 and glucagon and remained unresponsive and was brought to ED. In ED , he was having eye twitches and there was concern for ability to protect airway so ERMD decided to intubate patient. Was given fentanyl and rocuronium and was successfully intubated. History obtained by medical records and family. In the ED, he was given 2L NS and started on D5 1/2NS at 125 ml/hr. He was given lorazepam for possible seizure like activity. He had double lung transplant in 2017 and has been on prograf and cellcept. In the ED, vitals were BP 94/71, RR 18, HR 74, T 95.2, O2 sat 100% on vent. Pt sedated on mechanical ventilation. Admitted to CCU for AMS and hypoglycemia. Unknown amount of insulin taken last night. Blood sugar improved with D10 and glucagon , will continue D5 1/2 NS and monitor accuchecks q1h overnight. Holding insulin and any other DM meds. Dr. Judge consulted in ED and has seen patient. On fentanyl for sedation. There was concern for seizure like activity, will check EEG and continue PRN lorazepam. Has been seen 6 times over the last 2 months for COPD symptoms. Per Nu recommendation, will treat with duonebs, levaquin, and steroids. Continue home anti-rejection medications. Anticipate hospital stay >72 hours. Please see project intern note above for full H&P, which I have reviewed and agree with. Code status: FULL. PCP: CHRISTOPHER Addendum - Attending - Attending Attestation Date/Time: 09/20/19 1443 I personally evaluated the patient and discussed the management with Dr. Ward I agree with the History, Examination, Assessment and Plan documented above with any addition or exceptions noted below. 59 yo AA male s/p double lung transplant 2017 at [facility]. Patient found unresponsive at home by Family undetermined amount time unresponsive last seen responsive reported 11 pm. Patient per EMS with hypogylcemia BS 20s and given D10W and glucagon in the field. Patient upon arrival to ER still unresponsive with seizure like activity. Patient electively intubated. [facility] notified and since didn't appear to be a pulmonary issue rec admission here. Dr Judge has seen and agreed ok to admit here. CT head wnl CXR no acute process PMHX COPD history s/p lung transplant, DM insulin dependant, HTN, CAD s/p stent placement, IVONNE, LBP, dyslipidemia and s/p right hemicolectomy for GI bleeding 2015. Concern twitching eyes consider post-ictal verse anoxic injury discussed with critical care need for urgent EEG, will need monitor tacrilimus level and empirical antibiotics will monitor blood sugars has D5 1/2 NS running hypogylcemic precautions, seizure precaution and vent management per Critical care. Continue routine home rx except insulin and any hypogylcemics.
[2019-09-20] MEDS ORDERED: Acetaminophen 650 MG Suppository PR PRN (11:45)
[2019-09-20] MEDS ORDERED: Ondansetron PF 4 MG/2 ML Vial IVP PRN (11:45)
[2019-09-20] MEDS ORDERED: CCU Electrolyte Replacement 1 EACH IVPB SCH (11:49)
[2019-09-20] MEDS ORDERED: Ventilator Sedation Protocol 1 EACH FS SCH (12:00)
[2019-09-20] MEDS ORDERED: Lorazepam 2 MG/ML VIAL SLOW IVP PRN (12:12)
[2019-09-20] MEDS ORDERED: Dextrose 5 %-0.45 % NaCl 1,000 ML IV SCH ×2 (12:15→15:28)
[2019-09-20] MEDS ORDERED: Magnesium 2 GM/50 ML 2 GM in Premix Bag 1 BAG IVPB PRN (12:27)
[2019-09-20] MEDS ORDERED: PHOS-NAK 1 PKT PACK PO PRN ×2 (12:27)
[2019-09-20] MEDS ORDERED: Potassium Chloride 20 MEQ TAB PO PRN (12:27)
[2019-09-20] MEDS ORDERED: Potassium Chloride 40 MEQ in Sodium Chloride 0.9% 250 ML 250 ML IVPB PRN (12:27)
[2019-09-20] MEDS ORDERED: Potassium Chloride 40 MEQ in Premix Bag 1 BAG IVPB PRN (12:27)
[2019-09-20] MEDS ORDERED: CCU ELECTROLYTE REPLACEMENT PROTOCOL FS PRN (12:27)
[2019-09-20] MEDS ORDERED: Potassium Phosphate 15 MMOL in Sodium Chloride 0.9% 250 ML 250 ML IV PRN (12:27)
[2019-09-20] MEDS ORDERED: Potassium Phosphate 12 MMOL in Sodium Chloride 0.9% 250 ML 250 ML IV PRN (12:27)
[2019-09-20] MEDS ORDERED: Magnesium Oxide 400 MG TAB PO PRN ×2 (12:27)
[2019-09-20] MEDS ORDERED: Fentanyl BOLUS 250 ML IVPB PRN (12:28)
[2019-09-20] MEDS ORDERED: DISCONTINUE PREVIOUS NARCOTIC PAIN MEDICATIONS AND BENZODIAZEPINES FS SCH (12:28)
[2019-09-20] MEDS ORDERED: fentaNYL Citrate/PF 2,000 MCG in Sodium Chloride 0.9% 60 ML IV SCH (12:28)
[2019-09-20] MEDS ORDERED: Propofol BOLUS 1,000 MG/100 ML VIAL IV PRN (12:28)
[2019-09-20] MEDS: methylPREDNISolone Sod Succ 40 MG VIAL IVP SCH ×2 (14:00→19:51)
[2019-09-20] MEDS: Propofol 1,000 MG/100 ML VIAL IV PRN (14:31)
[2019-09-20] MEDS ORDERED: SYSTANE 3.5 GM TUBE EA EYE PRN (15:29)
[2019-09-20] MEDS ORDERED: Vancomycin HCl 1.5 GM in Sodium Chloride 0.9% 250 ML 300 ML IVPB SCH (16:00)
[2019-09-20] MEDS ORDERED: levETIRAcetam 2,000 MG in Sodium Chloride 0.9% 100 ML IVPB SCH (16:00)
[2019-09-20] MEDS ORDERED: Vancomycin 1.5 GRAM/300 ML BAG 1.5 GM in Premix Bag 1 BAG IVPB SCH (16:30)
--- NOTE | 2019-09-20 16:40 | CON ---
DATE OF CONSULTATION: 09/20/2019 SERVICE: Pulmonary Medicine. REASON FOR CONSULTATION: Intubated patient. HISTORY OF PRESENT ILLNESS: The patient is a 59-year-old male with past medical history significant for horrendous COPD. That being said, he is recipient of a bilateral lung transplant. He had these lungs placed roughly 3 or [address] Either [address], he has had some issues with some chronic rejection. He now once again has some obstructive airflow limitation on ventilator waveforms. Ultimately, this morning, he was in his usual state of health when apparently he started having increasing confusional state. He was brought to the emergency department and was found to be obtunded. He was intubated. Shortly thereafter , he was discovered to have hypoglycemia and had some seizure like episode. He cannot provide any additional elements of the history currently because he is encephalopathic and obtunded. It is not clear whether or not he had any respiratory issues that precipitated this event, though I do not believe that he did. In the skin evaluation, he was discovered to have a draining sinus tract over the right posterior back. PAST MEDICAL HISTORY: 1. History of bilateral lung transplant. 2. Type 2 diabetes mellitus. 3. Anxiety disorder. 4. Major depressive disorder. 5. Obstructive sleep apnea. 6. Hypertension. 7. Gastroesophageal reflux disease. PAST SURGICAL HISTORY: 1. Bilateral lung transplant, 2017. 2. C-spine surgery for disk fusion. 3. Colonoscopy. 4. Right hemicolectomy. 5. Coronary artery stent placement. FAMILY HISTORY: Noncontributory. SOCIAL HISTORY: The patient quit smoking in 2009. He does not have any significant alcohol or illicit drug use. He has no exposure to chemicals, dust, asbestos, or tuberculosis otherwise. ALLERGIES: AMOXICILLIN. MEDICATIONS: List of his inpatient medications was reviewed. Multiple updates were made. REVIEW OF SYSTEMS: This cannot be obtained as the patient is currently intubated and sedated. PHYSICAL EXAMINATION: VITAL SIGNS: Afebrile, pulse 92, blood pressure 91/66, respirations 20, and saturation 100% on 30% FiO2 and a PEEP of 5. GENERAL: The patient is intubated and sedated. HEENT: Normocephalic and atraumatic. Sclerae are white. Conjunctivae are pink. Oral mucosa is moist without lesions. LUNGS: Decent air entry. There is a prolonged expiratory phase and some wheezing. Minimal dependent crackles are noted. No prolonged expiratory phase or wheezing is otherwise appreciated. HEART: Normal rate. Regular. ABDOMEN: Soft, nontender, and nondistended. Bowel sounds are positive. MUSCULOSKELETAL: No cyanosis or clubbing. There is trace pitting in bilateral lower extremities. NEUROLOGIC: Grossly nonfocal. LABORATORY DATA: WBC 11.1, hemoglobin 12.9, and platelets 176,000. Neutrophils are 84%. PH 7.47, pCO2 of 44, PO2 of 455, while on 100% FiO2. At the time, his rate was 18. Prolactin is 13.72, is within the normal limits. TSH is normal. Blood sugar ranges from 86 to 110 over the last 4 hours. Basic metabolic profile is completely unremarkable. Liver function studies are unremarkable. Troponin is negative x1, CK is normal. Procalcitonin is low. Urinalysis is unremarkable. Urine drug screen is positive for opiates, but otherwise unremarkable for salicylates, acetaminophen, or alcohol. IMAGING: CT of the brain demonstrates no acute intracranial abnormality. Chest x-ray demonstrates subtle interstitial lung changes throughout bilateral lung farah. I do not see any acute consolidating lesions. His diaphragms have a very nice contour to them. Cardiac silhouette is slender. Endotracheal tube terminates roughly 2 cm above the level of the iram. ASSESSMENT: 1. Acute hypoxic respiratory failure (so far as I am aware as I believe he has not been on oxygen since his lung transplant). 2. Chronic obstructive pulmonary disease with acute exacerbation (this is strictly based on the ventilator waveforms and I am not certain what his new baseline is) . 3. Metabolic encephalopathy secondary to hypoglycemia. 4. Seizure-like activity. DISCUSSION AND PLAN: We will try to get a stat EEG. I will load him with Keppra, we will initiate this twice daily. Propofol will be used for sedation. Neurology consultation will be placed, we will empirically put him on antibiotics for soft tissue infection. Because of his immune-compromised state, I do not know whether or not the procalcitonin is accurate, but he did have significant purulent drainage from his is back. As such, I am going to cover him for soft tissue infection while we are awaiting culture results. Multiple adjustments have been made to the ventilator, namely I just simply decreased his rate of ventilation. I do not believe this is an acute respiratory event that resulted in his presentation. I think it is a seizure secondary to metabolic related changes. As such, we can keep him here, provided that we can follow his tacrolimus levels closely while being on these antibiotics. CRITICAL CARE TIME: 30 minutes. Job ID: [id number] [id number]
--- NOTE | 2019-09-20 17:56 | CON ---
DATE OF TELEMEDICINE CONSULTATION: 09-20-2019 CHIEF COMPLAINT: Seizures. HISTORY OF PRESENT ILLNESS: Most of the medical history was obtained from the chart. The patient is unresponsive and is on propofol. Examination was done and he was off propofol. I reviewed the ER physician's note. He has a history of diabetes and COPD and he has had hypoglycemia. He had altered mental status and deep sleep earlier this morning and family was unable to wake him up and the patient's blood sugar was 24. He became unresponsive. He was not responding to painful stimuli and he did take his insulin yesterday and they are not sure of the quantity or amount of the insulin. EMS gave him D10 and glucagon and the patient remained unresponsive. He is also a lung transplant patient. His lung transplant was performed in 2016 and he was diagnosed with seizure disorder, and is planned for Keppra 2 g, Keppra was not given at the time of my evaluation yet. PREVIOUS MEDICAL HISTORY: Diabetes, hyperlipidemia, hypercholesterolemia, hypertension, and COPD. 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 SOCIAL HISTORY: Lives at home with family. No alcohol or drug use. Nonsmoker. REVIEW OF SYSTEMS: Unobtainable from the patient. ALLERGIES: NO KNOWN DRUG ALLERGIES. FAMILY HISTORY: Not noted in the chart. MEDICATIONS: Home medications noted from the chart and in the ER, the patient became unresponsive. The patient continued to be unresponsive even after D5 and then blood glucose went up. His CT was unremarkable and we are asked to see the patient for seizure activity. LAB WORKUP: White count 11.1, hemoglobin 12.9, hematocrit 39.1, and platelet count 176. Chemistry; sodium 138, potassium 4.7, chloride 94, bicarb 35, BUN 11, creatinine 0.69, TSH is 0.44, prolactin 13.72, glucose 517 after IV glucose. Urine toxicology is positive for opiates. Plasma alcohol less than 10. CT head was completed this morning and head CT showed no acute intracranial abnormality. PHYSICAL EXAMINATION: VITAL SIGNS: Blood pressure 113/78, heart rate 105. He is on ventilator. CHEST: He had bilateral coarse rhonchi and diminished breath sounds in the bases. HEART: Sounds S1 and S2 heard. No murmurs. ABDOMEN: Soft. NEUROLOGIC: Performed off propofol. Pupils 5 mm, reacting. He is unable to follow any commands. No facial asymmetry was noted. Cough and gag present. Motor examination, increased tone in the right upper extremity with a clenched fist and one episode of brief jerkiness of the right hand was noted and in the right leg , he had some rigid increased tone as well, but was able to move the right leg to stimulus. On the left side, he had spontaneous movement. Deep tendon reflexes were absent. Cerebellar and sensory, unable to examine. IMPRESSION: The patient is a 59-year-old man with history of chronic obstructive pulmonary disease, lung transplant, and diabetes. He became hypoglycemic today and had seizures as well per chart and he is currently intubated for airway protection and is also on IV glucose. He is pending administration of his Keppra. His examination shows right arm stiffness along with fisting of the right hand and some very mild clonic activity, which I noticed on exam. He also had increased tone in the right leg with diminished movement on the right side compared to the left. He was spontaneously moving the left side, likely diagnosis here is acute seizure onset secondary to a structural lesion, not visible on CT head versus seizures associated with hypoglycemia. TREATMENT RECOMMENDATIONS: Agree with Keppra administration. If he is unable to improve after Keppra, please add sodium valproate 500 mg b.i.d. I also agree with the plan for EEG. Please obtain an MRI of the brain to delineate if he had an acute stroke in addition to his other medical issues since there is diminished movement of the right side. I will follow up the patient as needed today. Dr. Peterson gleason operator from tomorrow. Please call him if you have any further issues with this patient care. Job ID: [id number] [facility]
[2019-09-20] MEDS: Lorazepam 2 MG/ML VIAL SLOW IVP PRN (19:39)
[2019-09-20] MEDS: Metoprolol Tartrate 5 MG/5 ML VIAL IVP PRN (21:15)
[2019-09-20] MEDS: Famotidine/PF 20 mg/2ml Vial SLOW IVP SCH (21:59)
[2019-09-20] MEDS: metroNIDAZOLE 500 MG in Premix Bag 1 BAG IVPB SCH (22:00)
[2019-09-20] MEDS ORDERED: Sodium Chloride 0.9% 1,000 ML IV SCH (23:15)
[2019-09-21] MEDS: methylPREDNISolone Sod Succ 40 MG VIAL IVP SCH ×5 (00:11→23:57)
[2019-09-21] MEDS: Metoprolol Tartrate 5 MG/5 ML VIAL IVP PRN ×2 (02:38→05:19)
[2019-09-21] MEDS: Propofol 1,000 MG/100 ML VIAL IV PRN ×2 (05:19→16:08)
[2019-09-21] MEDS: metroNIDAZOLE 500 MG in Premix Bag 1 BAG IVPB SCH ×3 (05:19→22:16)
[2019-09-21] MEDS: Vancomycin HCl 1 GM in Premix Bag 1 BAG IVPB SCH ×2 (05:19→16:58)
--- NOTE | 2019-09-21 05:58 | PDOC.FM ---
- Subjective Subjective: Patient remains intubated & sedated. Slightly agitated despite IV ativan & propofol at 20mcg/min. Per nursing BP cannot tolerate additional sedation. Per nursing staff patient's HR increased to almost 200 overnight. Has received IV metoprolol x3 but still in the 130s consistently. Bg levels stabilized around 0200 this AM. - Objective MAR Reviewed: Yes Vital Signs & Weight: Vital Signs (12 hours) Temp Pulse Resp BP Pulse Ox 09/21/19 04:00 24 H 09/21/19 02:42 112 H 116/79 09/21/19 02:00 22 H 09/21/19 01:05 93 20 100 09/21/19 00:00 24 H 09/20/19 22:34 90 104/75 09/20/19 22:00 15 09/20/19 20:00 98.8 F 15 100 09/20/19 19:00 100 09/20/19 18:56 107 H 100/68 09/20/19 18:54 101 H 15 100 Weight Weight 58.4 kg Most Recent Monitor Data Heart Rate from ECG 111 NIBP 126/82 NIBP BP-Mean 96 Respiration from ECG 27 SpO2 97 I&O: 09/19/19 09/20/19 09/21/19 06:59 06:59 06:59 Intake Total 2110 Output Total 2665 Balance -555 Result Diagrams: 09/21/19 03:15 09/21/19 05:42 EKG Reviewed by me: Yes Radiology Reviewed by me: Yes Phys Exam - Physical Examination Constitutional: NAD HEENT: moist MMs Neck: supple, full ROM Cardiovascular: RRR, no significant murmur Gastrointestinal: soft, no distention, positive bowel sounds Musculoskeletal: no edema, pulses present chemically sedated Deviation from normal: chemically sedated Skin: no rash, normal turgor Deviation from normal: draining sinus tract over R shoulder Dx/Plan (1) GERD (gastroesophageal reflux disease) Code(s): K21.9 - GASTRO-ESOPHAGEAL REFLUX DISEASE WITHOUT ESOPHAGITIS Status: Chronic (2) Altered mental state Code(s): R41.82 - ALTERED MENTAL STATUS, UNSPECIFIED Status: Acute (3) Hypoglycemia Code(s): E16.2 - HYPOGLYCEMIA, UNSPECIFIED Status: Acute (4) Seizure Code(s): R56.9 - UNSPECIFIED CONVULSIONS Status: Acute (5) Acute on chronic respiratory failure with hypoxia and hypercapnia Code(s): J96.21 - ACUTE AND CHRONIC RESPIRATORY FAILURE WITH HYPOXIA; J96.22 - ACUTE AND CHRONIC RESPIRATORY FAILURE WITH HYPERCAPNIA Status: Acute (6) Anxiety and depression Status: Chronic (7) HTN (hypertension) Code(s): I10 - ESSENTIAL (PRIMARY) HYPERTENSION Status: Chronic Qualifiers: (8) COPD (chronic obstructive pulmonary disease) Status: Chronic (9) Lung transplant status, bilateral Code(s): Z94.2 - LUNG TRANSPLANT STATUS Status: Chronic (10) Diabetes mellitus type 2 in nonobese Code(s): E11.9 - TYPE 2 DIABETES MELLITUS WITHOUT COMPLICATIONS Status: Chronic - Plan Plan: Acute metabolic encephalopathy 2/2 severe hypoglycemia - Most likely 2/2 hypoglycemia as blood glucose of 24 per EMS when found at home. However, given immunocompromised state & reported productive could, could be underlying infection contributing to this as well. - Responded to D10 and D5 1/2 NS give en route & ED & now off of IVFs as last 3 accuchecks have been >200. Will change to Q4H accuchecks & add mild SSI to keep BG between 140-180 while inpatient. Hypoglycemia protocol in place as well. Acute hypoxic respiratory failure - Most likely 2/2 problem #1 w/ associated seizure-like activity. Patient remains intubated this AM. - Will continue SABINA IV steroids, Duonebs, & abx. Will wean ventilatory support & sedation as tolerated by patient. - Pulmonology, Dr. Judge, on board, appreciate recommendations. SVT - Patient's HR jumped up to 190s overnight but has consistently been ranging from 120-160s since. s/p IV metoprolol 5mg IV x3 & still in the 130s on exam. - Will give a 1x loading dose of IV diltiazem 0.25mg/kg and consider consulting cards if no resolution with this as per nursing BP cannot tolerate much more sedation. - Will check Mg & phos levels & replace PRN per electrolyte protocol. Right shoulder soft tissue infection - Right should notable for sinus tract w/ purulent discharge on admission. Empiric abx, Vancomycin, started. Will continue pending Cx results. Prelim showing Gram + cocci in pairs & gram + rods. Seizure-like activity - Most likely 2/2 severe hypoglycemia but need to r/o other potential causes. EEG & brain MRI to be done today per neuro recs if patient can remain still for the procedures. Dr. Escobedo with neurology on board, appreciate recs. - Lorazepam prn & SABINA keppra BID for seizure activity. Will add valproate 500mg BID if keppra not adequate for seizure control per neuro. - Seizure precautions. Suspected CAP/COPD exacerbation - See plan for problem #2. Stable on mechanical ventilation as of now. COPD s/p Lung Transplantation - Will continue anti-rejection meds per pulm recs. IDDM II - Will hold all diabetes medications at this time & med rec home insulin dose today Hypertension - Will resume as tolerated by patient Anxiety and depression - Will resume home meds GERD - Famotidine BID until tolerating PO. Disposition/LOS: Guarded, inpatient. LOS will be >48 hours. VTE: Lovenox GI ppx: Pepcid Abx: Levaquin & vancomycin (day #2) IVFs: KVO Drains/lines/tubes: ET & NG tubes, hernandez & B/L AC peripheral lines started/ placed on 09/20/19 (day #2) Code: Full PCP: CHRISTOPHER Addendum - Attending - Attending Attestation Date/Time: 09/21/19 1041 I personally evaluated the patient and discussed the management with Dr. Leonard I agree with the History, Examination, Assessment and Plan documented above with any addition or exceptions noted below. will load with digoxin for rate control since BP is borderline low. Patient takes verapamil and metoprolol at home so this could be reflex tachycardia. Glucose now >200. Will start SSI. Start tube feeds today. EEG has been performed but read pending. Will attempt MRI today but may not be able to due to patient agitation and inability to further sedate 2/2 BP. Awaiting other specialist recs at this time. Will wait to see if neurological function improves over next few days.
[2019-09-21 06:06] LABS: Albumin 3.2 g/dL (3.5-5.0)
[2019-09-21 06:07] LABS: Chloride 96 mmol/L (98-107); Potassium 3.7 mmol/L (3.5-5.1); Sodium 133 mmol/L (136-145)
[2019-09-21 06:08] LABS: Calcium 7.8 mg/dL (7.8-10.44); Glucose 242 mg/dL (70-105)
[2019-09-21 06:09] LABS: Globulin 2.6 g/dL (2.4-3.5); Protein, Total 5.8 g/dL (6.0-8.3)
[2019-09-21 06:10] LABS: Anion Gap 14 mmol/L (10-20); Bilirubin, Total 0.5 mg/dL (0.2-1.2); Carbon Dioxide 27 mmol/L (22-29)
[2019-09-21 06:11] LABS: Alkaline Phosphatase 72 U/L (40-110)
[2019-09-21 06:12] LABS: Calc. Creatinine Clearance 109 mL/min (70-130); Estimated GFR-MDRD Greater than 90
[2019-09-21 06:13] LABS: BUN (Urea Nitrogen) 6 mg/dL (8.4-25.7)
[2019-09-21 06:14] LABS: ALT (SGPT) 24 U/L (8-55); AST (SGOT) 23 U/L (5-34)
[2019-09-21] MEDS ORDERED: HumaLOG 300 UNITS/3 ML VIAL SC PRN (06:27)
[2019-09-21] MEDS ORDERED: Dextrose 5% in Water 1,000 ML IV PRN (06:27)
[2019-09-21] MEDS ORDERED: Dextrose 50% Abboject 50 ML SYRINGE SLOW IVP PRN (06:27)
[2019-09-21 07:16] LABS: Band 1 % (5-11); Hemoglobin 11.7 g/dL (14.0-18.0); Lymphocytes 5 % (21-51); MDiff Complete? YES; Mean Corpuscular HGB CONC 33.1 g/dL (32.0-36.0); Mean Corpuscular Hemoglobin 30.2 pg (27.0-31.0); Mean Platelet Volume 9.6 fL (7.4-10.4); Monocytes 1 % (0-10); Neutrophil 93 % (42-75); Platelet Count 101 thou/uL (130-400); Platelet Morphology Comment Appears Decreased; Polychromasia SLIGHT = 2-3 cells (100X) (0-2/hpf); RBC Distribution Width 16.2 % (11.5-14.5); Red Blood Cell (RBC) Count 3.87 mill/uL (4.70-6.10); White Blood Cell (WBC) Count 7.3 thou/uL (4.8-10.8)
[2019-09-21] MEDS: Enoxaparin Sodium 40 MG/0.4 ML SYRINGE SC SCH (08:20)
[2019-09-21] MEDS: Famotidine/PF 20 mg/2ml Vial SLOW IVP SCH ×2 (08:21→20:34)
[2019-09-21] MEDS: Tacrolimus 0.5 MG CAP PER TUBE SCH (08:22)
--- NOTE | 2019-09-21 08:22 | RAD ---
Chest AP view INDICATION: Follow-up chest radiograph; post intubation COMPARISON: September 20, 2019 8:19 AM FINDINGS: Lungs: Chronic lung changes are stable. ET tube and gastric catheter unchanged. Post-CABG changes st able. Cardiac silhouette: The cardiomediastinal silhouette appears within normal limits. Pulmonary vasculature: Normal Pleural spaces: No pleural effusion or pneumothorax is demonstrated. Upper abdomen: No abnormality seen. Osseous structures: No acute osseous abnormality. Additional findings: None. IMPRESSION: No acute cardiopulmonary abnormality.
[2019-09-21] MEDS: HumaLOG 300 UNITS/3 ML VIAL SC PRN ×3 (08:36→22:17)
[2019-09-21 08:37] LABS: Magnesium 1.3 mg/dL (1.6-2.6)
[2019-09-21] MEDS ORDERED: Vancomycin HCl 1 GM in Premix Bag 1 BAG IVPB SCH (09:00)
[2019-09-21] MEDS ORDERED: Tacrolimus 0.5 MG CAP PO SCH (09:00)
[2019-09-21] MEDS ORDERED: diphenhydrAMINE 50 MG/ML VIAL IVP PRN (09:15)
[2019-09-21] MEDS ORDERED: Digoxin 0.5 MG/2 ML AMP SLOW IVP SCH ×2 (09:45→13:00)
[2019-09-21] MEDS ORDERED: Magnesium Sulfate 3 GM in Sodium Chloride 0.9% 100 ML IVPB SCH (10:00)
--- NOTE | 2019-09-21 15:57 | EEG ---
Referring Physician: PATTIE CROSS EEG # [id number] TEST TYPE: ROUTINE PORTABLE INPATIENT REPORT: AN EEG USING THE [employer]NATIONAL TEN-TWENTY SYSTEM OF ELECTRODE PLACEMENT WAS PERFORMED. The background activity consists of some low amplitude mixed frequency slowing. There is quite a bit of EMG artifact and movement artifact that obscures portions of the record. No epileptiform features were noted. Photic stimulation was unremarkable. IMPRESSION: THIS IS AN ABNORMAL STUDY FOR THE FINDINGS OF DIFFUSE SLOWING CONSISTENT WITH A DIFFUSE ENCEPHALOPATHIC PROCESS. Turkey Boner: DAVID [employer] White Printer Operator: EEG.[email or web address] MASON
[2019-09-21] MEDS ORDERED: Potassium Phosphate 15 MMOL in Sodium Chloride 0.9% 250 ML 250 ML IVPB SCH (17:00)
--- NOTE | 2019-09-21 17:21 | PRG ---
DATE OF SERVICE: 09/21/2019 SERVICE: Pulmonary Medicine. INTERVAL HISTORY: The patient is doing better from respiratory standpoint. His obstructive airflow limitation is improved slightly. He had a significant ventilator dyssynchrony this afternoon. He was put on a pressure control ventilation, he seemed to do a lot better with that. Otherwise, he cannot provide any additional elements of the history. Nursing reports no overnight events. PHYSICAL EXAMINATION: VITAL SIGNS: Afebrile, pulse 105, blood pressure 137/92, respirations 32, saturation 96%, and currently on 27% FiO2 and a PEEP of 5. GENERAL: The patient is intubated and sedated. HEENT: Normocephalic and atraumatic. Sclerae are white. Conjunctivae are pink. Oral mucosa is moist without lesions. LUNGS: There is decent air entry with a prolonged expiratory phase or wheezing present. No crackles. HEART: Normal rate and regular. ABDOMEN: Soft, nontender, and nondistended. Bowel sounds are positive. MUSCULOSKELETAL: No cyanosis or clubbing. No pitting in the bilateral lower extremities. NEUROLOGIC: Grossly nonfocal. LABORATORY DATA: WBC 7.3, hemoglobin 11.7, and platelets 101,000. Basic metabolic profile is unremarkable. Liver function studies unremarkable. Magnesium 1.3, phosphorus 2.0. Blood cultures x2, urine culture unremarkable. Influenza A and B are negative. IMAGING DATA: Chest x-ray demonstrates no acute cardiopulmonary abnormality. There is an endotracheal tube 2 cm above the level of the iram. Enteric catheter courses midline below the level of the diaphragm and out of the field of view. I do not see any obvious infiltrates. His lungs are good contour. ASSESSMENT: 1. Acute on chronic hypoxic respiratory failure. 2. Chronic obstructive pulmonary disease with acute exacerbation. 3. Bronchiolitis obliterans, likely. 4. Metabolic encephalopathy secondary to hypoglycemia. 5. Seizure, also secondary to hypoglycemia. DISCUSSION AND PLAN: EEG was unremarkable for ongoing seizure activity. We will continue his antiseizure drugs. At this point, he is not ready for extubation. We will continue the sedation. We will try spontaneous breathing trial, likely first thing in the morning. Until then, supportive care including antibiotics, nebulized medications, and steroids will be continued. Magnesium has already been replaced. We will give him additional potassium and phosphorus. Critical Care will follow. Critical care time: 30 minutes. Job ID: [id number] [facility]
[2019-09-21] MEDS: diphenhydrAMINE 50 MG/ML VIAL IVP PRN (18:20)
[2019-09-21] MEDS ORDERED: Pancrelipase DR 12000 1 CAP FS PRN (19:30)
[2019-09-21] MEDS ORDERED: Sodium Bicarbonate Tab 325 MG TAB PER TUBE PRN (19:30)
[2019-09-21] MEDS: Atorvastatin Calcium 40 MG TAB PER TUBE SCH (20:34)
[2019-09-21] MEDS: Metoprolol Tartrate 50 MG TAB PO SCH (20:34)
[2019-09-22] MEDS: diphenhydrAMINE 50 MG/ML VIAL IVP PRN (02:02)
[2019-09-22] MEDS: Propofol 1,000 MG/100 ML VIAL IV PRN ×2 (03:53→14:14)
[2019-09-22 04:28] LABS: #Lymphocytes 0.2 thou/uL (1.20-3.40); #Monocytes 0.6 thou/uL (0.11-0.59); #Neutrophils 8.4 thou/uL (1.40-6.50); %Eosinophils 0.1 % (0.0-10.0); %Lymphocytes 2.6 % (21.0-51.0); %Monocytes 6.2 % (0.0-10.0); %Neutrophils 91.1 % (42.0-75.0); Hemoglobin 12.3 g/dL (14.0-18.0); Mean Corpuscular HGB CONC 32.3 g/dL (32.0-36.0); Mean Corpuscular Hemoglobin 28.7 pg (27.0-31.0); Mean Corpuscular Volume 88.9 fL (78.0-98.0); Mean Platelet Volume 8.6 fL (7.4-10.4); Platelet Count 171 thou/uL (130-400); RBC Distribution Width 16.1 % (11.5-14.5); Red Blood Cell (RBC) Count 4.28 mill/uL (4.70-6.10); White Blood Cell (WBC) Count 9.3 thou/uL (4.8-10.8)
[2019-09-22 04:41] LABS: Vancomycin, Trough 7.8 ug/mL
[2019-09-22 04:44] LABS: ALT (SGPT) 24 U/L (8-55); AST (SGOT) 26 U/L (5-34); Albumin 3.2 g/dL (3.5-5.0); Alkaline Phosphatase 73 U/L (40-110); Anion Gap 13 mmol/L (10-20); BUN (Urea Nitrogen) 7 mg/dL (8.4-25.7); Bilirubin, Total 0.5 mg/dL (0.2-1.2); Calc. Creatinine Clearance 118 mL/min (70-130); Carbon Dioxide 30 mmol/L (22-29); Chloride 97 mmol/L (98-107); Estimated GFR-MDRD Greater than 90; Globulin 2.5 g/dL (2.4-3.5); Glucose 172 mg/dL (70-105); Magnesium 1.7 mg/dL (1.6-2.6); Protein, Total 5.7 g/dL (6.0-8.3); Sodium 137 mmol/L (136-145)
[2019-09-22 04:54] LABS: Phosphorus 1.6 mg/dL (2.3-4.7); Potassium 2.9 mmol/L (3.5-5.1)
[2019-09-22] MEDS: Vancomycin HCl 1 GM in Premix Bag 1 BAG IVPB SCH ×3 (05:37→22:47)
[2019-09-22] MEDS: metroNIDAZOLE 500 MG in Premix Bag 1 BAG IVPB SCH ×3 (05:38→22:47)
[2019-09-22] MEDS: methylPREDNISolone Sod Succ 40 MG VIAL IVP SCH ×3 (05:38→17:08)
[2019-09-22] MEDS: HumaLOG 300 UNITS/3 ML VIAL SC PRN ×3 (05:57→17:25)
[2019-09-22] MEDS ORDERED: Magnesium 2 GM/50 ML 4 GM in Premix Bag 1 BAG IVPB SCH ×2 (06:00→07:30)
[2019-09-22] MEDS ORDERED: Potassium Chloride 40 MEQ in Premix Bag 1 BAG IVPB SCH (06:00)
[2019-09-22 06:04] LABS: Phosphorus 1.4 mg/dL (2.3-4.7); Potassium 2.9 mmol/L (3.5-5.1)
--- NOTE | 2019-09-22 06:05 | PDOC.FM ---
- Subjective Subjective: Patient remained tachycardic overnight. Otherwise, ALFA. Remains intubated & sedated w/ propofol ggt this AM. - Objective MAR Reviewed: Yes Vital Signs & Weight: Vital Signs (12 hours) Temp Pulse Resp BP Pulse Ox 09/22/19 04:00 98.7 F 22 H 09/22/19 02:04 120 H 111/71 09/22/19 02:00 20 09/22/19 00:23 89 108/66 09/22/19 00:00 99.2 F 30 H 09/21/19 22:00 21 H 09/21/19 21:53 99 115/69 09/21/19 20:00 99.1 F 28 H 99 09/21/19 18:32 127 H 121/84 Weight Admit Weight 58.06 kg Weight 54.4 kg Most Recent Monitor Data Heart Rate from ECG 145 NIBP 94/69 NIBP BP-Mean 77 Respiration from ECG 24 SpO2 99 I&O: 09/20/19 09/21/19 09/22/19 06:59 06:59 06:59 Intake Total 3001.9 1140 Output Total 2730 1575 Balance 271.9 -435 Result Diagrams: 09/22/19 03:55 09/22/19 05:28 Phys Exam - Physical Examination Constitutional: NAD HEENT: moist MMs Neck: supple Respiratory: no wheezing, no rales, no rhonchi, clear to auscultation bilateral Cardiovascular: no significant murmur irregularly irregular rhythm & tachycardic Gastrointestinal: soft, no distention, positive bowel sounds Musculoskeletal: no edema, pulses present Neurological: moves all 4 limbs Skin: no rash, normal turgor Deviation from normal: draining sinus tract in R upper back covered in a clean, dry & intact -: dressing Dx/Plan (1) GERD (gastroesophageal reflux disease) Code(s): K21.9 - GASTRO-ESOPHAGEAL REFLUX DISEASE WITHOUT ESOPHAGITIS Status: Chronic (2) Altered mental state Code(s): R41.82 - ALTERED MENTAL STATUS, UNSPECIFIED Status: Acute (3) Hypoglycemia Code(s): E16.2 - HYPOGLYCEMIA, UNSPECIFIED Status: Resolved (4) Seizure Code(s): R56.9 - UNSPECIFIED CONVULSIONS Status: Resolved (5) Acute on chronic respiratory failure with hypoxia and hypercapnia Code(s): J96.21 - ACUTE AND CHRONIC RESPIRATORY FAILURE WITH HYPOXIA; J96.22 - ACUTE AND CHRONIC RESPIRATORY FAILURE WITH HYPERCAPNIA Status: Acute (6) Anxiety and depression Status: Chronic (7) HTN (hypertension) Code(s): I10 - ESSENTIAL (PRIMARY) HYPERTENSION Status: Chronic Qualifiers: (8) COPD (chronic obstructive pulmonary disease) Status: Chronic (9) Lung transplant status, bilateral Code(s): Z94.2 - LUNG TRANSPLANT STATUS Status: Chronic (10) Diabetes mellitus type 2 in nonobese Code(s): E11.9 - TYPE 2 DIABETES MELLITUS WITHOUT COMPLICATIONS Status: Chronic - Plan Plan: Acute metabolic encephalopathy 2/2 severe hypoglycemia - Most likely 2/2 hypoglycemia as blood glucose of 24 per EMS when found at home. However, given immunocompromised state & reported productive could, could be underlying infection contributing to this as well. - Lowest BG yesterday off of IVFs was 107. Will continue Q4H accuchecks and mild SSI while on tube feeds & adjust insulin regimen PRN to keep BG between 140 -180 while inpatient. Hypoglycemia protocol in place as well. Acute on chronic hypoxic respiratory failure - Most likely 2/2 problem #1 w/ associated seizure-like activity. Unable to wean from ventilatory support yesterday. 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 Most likely as to why his respiratory status is so compromised; however, will continue SABINA IV steroids, Duonebs, & abx & attempt to wean ventilatory support & sedation as tolerated by patient. Will discuss goals of care with family regarding as to whether or not patient would desire a tracheostomy again should it come to this. Will consider PC consult as well pending clinical course today. - Pulmonology, Dr. Judge, on board, appreciate recommendations. SVT - Patient's HR remained in the 90-110s overnight and after resuming 50mg PO metoprolol. However, HR is creeping back up into 140s or so this AM. BPs remain low-normal so limited with what antiarrthymics we can give. - Will consider starting on maintenance therapy with dig starting today and will get cards on board. Will continue to monitor electrolytes closely & replace PRN as these are likely contributing to his arrhythmia to some extent. Hypokalemia - K down to 2.9 this AM. Will give 40mEq IV & 20 mEq per tube at noon & recheck around ~1600 today. Hypomagnesemia - Mg low at 1.7 this AM. Will give 4g IV now. Hypophosphatemia - Low at 1.6 this AM. Will give 2 packets of K-phos Q4H x 3 doses & recheck a level in the AM. Right shoulder soft tissue infection - Right should notable for sinus tract w/ purulent discharge on admission. Will continue Empiric abx with Vancomycin as prelim Cx showing Gram + cocci in pairs & gram + rods. - WC on board. Seizure-like activity - Most likely 2/2 severe hypoglycemia but need to r/o other potential causes. EEG did not show persistent or ongoing epileptiform activity but did show diffuse slowing c/w encephalopathic process per neuro. Brain MRI to be done once patient less agitated & able to remain still. Dr. Escobedo with neurology on board, appreciate recs. - Lorazepam prn & SABINA keppra BID for seizure activity. Will add valproate 500mg BID if keppra not adequate for seizure control per neuro. - Continue seizure precautions. Suspected CAP/COPD exacerbation - See plan for problem #2. Remains stable on mechanical ventilation. COPD s/p Lung Transplantation - Will continue anti-rejection meds per pulm recs. - Tacrolimus level pending. IDDM II - Will continue mild SSI only for now & adjust insulin regimen PRN with initiation of tube feeds to keep BG between 140-180 while inpatient. Hypertension - Will resume as tolerated by patient. Anxiety and depression - Will resume home meds per tube. GERD - Famotidine BID until tolerating PO. Disposition/LOS: Guarded, inpatient. LOS will be >48 hours. VTE: Lovenox GI ppx: Pepcid Abx: Levaquin, metronidazole, & vancomycin (day #3) IVFs: KVO Drains/lines/tubes: ET & NG tubes, hernandez & B/L AC peripheral lines started/ placed on 09/20/19 (day #3) Code: Full PCP: CHRISTOPHER Addendum - Attending - Attending Attestation Date/Time: 09/22/19 1056 I personally evaluated the patient and discussed the management with Dr. Leonard I agree with the History, Examination, Assessment and Plan documented above with any addition or exceptions noted below. Replace electrolytes. MRI pending. EEG unremarkable. Continue supportive care. Pulm states plan to attempt breathing trial tomorrow. Restarted metoprolol yesterday. Cardiology following and will await further recs.
[2019-09-22] MEDS ORDERED: Magnesium Sulfate 4 GM in Sodium Chloride 0.9% 250 ML 250 ML IVPB SCH (07:30)
[2019-09-22] MEDS: Enoxaparin Sodium 40 MG/0.4 ML SYRINGE SC SCH (09:03)
[2019-09-22] MEDS: Metoprolol Tartrate 50 MG TAB PO SCH ×2 (09:12→20:34)
[2019-09-22] MEDS: Tacrolimus 0.5 MG CAP PER TUBE SCH (09:13)
[2019-09-22] MEDS: PHOS-NAK 1 PKT PACK PER TUBE SCH ×3 (09:14→14:14)
[2019-09-22] MEDS: Famotidine/PF 20 mg/2ml Vial SLOW IVP SCH ×2 (09:15→20:34)
[2019-09-22] MEDS ORDERED: Amiodarone 150 MG in Dextrose 5% in Water 100 ML IVPB SCH (09:45)
[2019-09-22] MEDS ORDERED: Amiodarone 450 MG in Dextrose 5% in Water 250 ML IVPB SCH (09:45)
[2019-09-22] MEDS ORDERED: Potassium Phosphate 30 MMOL in Sodium Chloride 0.9% 250 ML 250 ML IVPB ONE (10:00)
[2019-09-22] MEDS ORDERED: Nystatin 500,000 UNITS/5 ML UDCUP SSW SCH (10:30)
[2019-09-22] MEDS ORDERED: Nystatin 100,000 Units/mL UDCUP SSW SCH ×2 (10:30→13:00)
[2019-09-22] MEDS: Nystatin 500,000 UNITS/5 ML UDCUP SSW SCH ×3 (12:11→23:00)
[2019-09-22 12:14] LABS: Tacrolimus 6.7 ng/mL (2.0-20.0)
[2019-09-22] MEDS: Lorazepam 2 MG/ML VIAL SLOW IVP PRN (17:06)
[2019-09-22 17:08] LABS: Anion Gap 15 mmol/L (10-20); BUN (Urea Nitrogen) 8 mg/dL (8.4-25.7); Calc. Creatinine Clearance 110 mL/min (70-130); Calcium 7.9 mg/dL (7.8-10.44); Carbon Dioxide 23 mmol/L (22-29); Chloride 104 mmol/L (98-107); Estimated GFR-MDRD Greater than 90; Glucose 171 mg/dL (70-105); Potassium 5.3 mmol/L (3.5-5.1); Sodium 137 mmol/L (136-145)
--- NOTE | 2019-09-22 17:27 | CON ---
DATE OF CONSULTATION: HISTORY: Kaleb Turcios is a 59-year-old black male, who is admitted severely hypoglycemic and has been intubated. I initially evaluated him in July 2009, when he presented complaining of increased shortness of breath for 2 to 3 days. He had central chest tightness made worse with coughing and discomfort would last all day. Troponin I was undetectable. He underwent Lexiscan Cardiolite testing, which revealed a small area of questionable distal inferoseptal ischemia. He underwent cardiac catheterization and had moderate anterior hypokinesis with ejection fraction of 40% to 45%. There was a 70% proximal LAD, 70% mid LAD, 40% distal LAD, 80% apical LAD. There was 20% proximal circumflex. The right coronary artery had a 50, followed by 40, followed by 50% mid stenosis. He underwent placement of Liberte 3.0 x 28 and 3.5 x 28 in the LAD and then Veriflex 4.0 x 12 mm. In November 2011, he complained of episodes of nocturnal shortness of breath and chest burning that would last 2-5 minutes and had been occurring for 6 months. He was scheduled to undergo echocardiography as well as Lexiscan Cardiolite testing. However, he never did return for testing or followup. He was then admitted in October 2012, with cough, congestion, tightness and chest pain. He apparently had a respiratory arrest, was brought to the ICU, intubated. He ultimately required tracheostomy and PEG tube placement. There was difficulty in trying to extubate him with 2-3 reintubations, which then led to tracheostomy. Echo during that admission revealed ejection fraction of 65% to 70 %. He was found to have colonic polyps and it was felt that he needed to undergo colectomy. He underwent Cardiolite test in the office and was found to have distal inferior wall and apical fixed defect. He underwent cardiac catheterization on March 29, 2015. He had mild global hypokinesis with ejection fraction of 40% to 45%. The proximal mid LAD stenting continued to have good results with 40% in-stent restenosis in the midportion of the stents. There continued to be a 70% apical LAD, 20% proximal circumflex, 50% and 40% mid RCA. He underwent right hemicolectomy. Postoperatively, he was hypotensive and underwent laparoscopic drainage of 1 L of blood from his abdomen. I have not seen him since that hospitalization, as he never comes to the office for followup. He now has been admitted on September 19. During the interim, he has undergone bilateral lung transplant three or four years ago. Apparently having increasing confusion at home, he was brought to the emergency room, was obtunded and intubated. He was found to be hypoglycemic and had a seizure like episode. The patient is intubated and cannot give any history. PAST MEDICAL HISTORY: Bilateral lung transplants, coronary artery disease, status post LAD stent, diabetes, anxiety, obstructive sleep apnea, hypertension, GERD, hypercholesterolemia. MEDICATIONS: 1. Albuterol nebs q.6 hours p.r.n. 2. Amlodipine 5 mg daily. 3. Aspirin 81 daily. 4. Atorvastatin 40 at bedtime. 5. Azithromycin 250 q. Saturday, Saturday, Saturday. 6. Flexeril 10 mg p.r.n. 7. Cymbalta 60 daily. 8. Florinef 0.1 daily. 9. Metoprolol 100 b.i.d. 10. CellCept 750 b.i.d. 11. Protonix 40 daily. 12. Prednisone 10 mg daily. 13. Trimethoprim-sulfamethoxazole q. Saturday, Saturday, Saturday. 14. Prograf 0.5 q.a.m. 15. Trazodone 50 mg at bedtime. 16. Verapamil 120 daily. ALLERGIES: AMOXICILLIN. PAST SURGICAL HISTORY: Bilateral lung transplants in 2017, C-spine surgery, colonoscopy, laparoscopy, right hemicolectomy, coronary artery stent placement. SOCIAL HISTORY: Smoked 1/2 pack per day. This apparently stopped in 2009. He does not drink. FAMILY HISTORY: Unremarkable. REVIEW OF SYSTEMS: Unobtainable due to patient being sedated on the ventilator. PHYSICAL EXAMINATION: VITAL SIGNS: Blood pressure 103/67, pulse of 112. HEENT: PERRL. NECK: Supple. CHEST: Reveals distant breath sounds with some wheezing. CARDIOVASCULAR: S1 and S2 normal without any S3, S4, or murmurs. ABDOMEN: Normal bowel sounds without tenderness. EXTREMITIES: Revealed no clubbing, cyanosis, or edema. NEUROLOGIC: Grossly intact. LABORATORY DATA: EKG reveals sinus tachycardia with rate in the 130s. On his rhythm strips, he does have episodes of probable atrial tachycardia with aberrancy with heart rates of 160 to 170. His hemoglobin 12.3, hematocrit 38.1, white count 9300, platelets 171,000, D-dimer 0.34. Sodium 137, potassium 2.9, chloride 97, carbon dioxide 30, BUN 7, creatinine 0.57, phosphorus 1.4. IMPRESSION: 1. Episodes of sinus tachycardia as well as possible atrial tachycardia. He is on high-dose beta juanjose at home when apparently this was held from the time of admission, and some of these arrhythmias may represent beta juanjose withdrawal. His resuming therapy with metoprolol, his rhythm remains more stable. 2. Status post bilateral lung transplant. 3. He does have coronary artery disease status post stent placed in the proximal and mid LAD with continued good results in March 2015 catheterization. 4. Ejection fraction of 40% to 45% on last determination. 5. Hypercholesterolemia. 6. Hypertension. 7. Chronic obstructive pulmonary disease. 8. Former smoker. PLAN: The patient will be continued on his metoprolol, though he has been started on a lower dose than what he takes at home. Echocardiogram will be performed to reassess left ventricular function. Job ID: [id number] MTDD
--- NOTE | 2019-09-22 19:25 | PRG ---
DATE OF SERVICE: 09/22/2019 SERVICE: Pulmonary Medicine. INTERVAL HISTORY: The patient is doing okay from respiratory standpoint. Oxygen requirements are the same. He continues to have severe obstructive airflow limitation. Otherwise, there has been no interval change to his condition. Whenever we hold sedation, the patient becomes extraordinarily agitated. He has purposeful activity, but does not follow commands before to put him back down. PHYSICAL EXAMINATION: VITAL SIGNS: Afebrile, pulse 87, blood pressure 80/56, respirations 30, and saturation 97%, currently on 27% FiO2 with a PEEP of 5. GENERAL: The patient is intubated and sedated. HEENT: Normocephalic and atraumatic. Sclerae white. Conjunctivae pink. Oral mucosa is moist without lesions. LUNGS: Good air entry bilaterally. There is a prolonged expiratory phase with wheezing. No crackles are present, but rhonchi are noted. HEART: Normal rate. Regular. ABDOMEN: Soft, nontender, and nondistended. Bowel sounds are positive. MUSCULOSKELETAL: No cyanosis or clubbing. There is no pitting in the bilateral lower extremities. NEUROLOGIC: Grossly nonfocal. LABORATORY DATA: WBC 9.3, hemoglobin 12.3, and platelets 171,000. Basic metabolic profile is unremarkable. His potassium is 5.3. Urinalysis is unremarkable. Urine drug screen is negative except for opiates. All culture results remain unremarkable. Respiratory culture today was performed, which had many white blood cells, many gram-positive cocci in pairs, and many gram-positive rods. ASSESSMENT: 1. Acute on chronic hypoxic respiratory failure. 2. Chronic obstructive pulmonary disease with acute exacerbation. 3. Bronchiolitis obliterans, suspected. 4. Metabolic encephalopathy secondary to hypoglycemia. 5. Seizure, likely secondary to hypoglycemia. DISCUSSION AND PLAN: The patient's electrolytes are deplorable. We will replace them, recheck them tomorrow morning. Pulmonary/Critical Care will continue to follow along while he remains in this location. We will continue supportive care including nebulized medications, antibiotics, and steroids. Gram-positive cocci are identified on the sputum, and will be speciated. Appropriate antibiotic coverage is likely already present. Pulmonary/Critical Care will continue to follow while the patient remains inhouse. Because of his agitation, I will initiate Precedex. Hopefully, this will allow us to minimize other sedating medications, so that he can wake up more appropriately. In 24 to 48 hours, I would like to extubate the patient if at all possible. CRITICAL CARE TIME: 30 minutes. Job ID: [id number]
[2019-09-22] MEDS: Atorvastatin Calcium 40 MG TAB PER TUBE SCH (20:34)
[2019-09-23] MEDS: Lorazepam 2 MG/ML VIAL SLOW IVP PRN (00:40)
[2019-09-23] MEDS: Metoprolol Tartrate 50 MG TAB PO SCH (01:33)
[2019-09-23] MEDS: Propofol 1,000 MG/100 ML VIAL IV PRN ×2 (02:03→15:30)
[2019-09-23 02:15] LABS: Troponin I 0.098 ng/mL (< 0.028)
[2019-09-23 02:24] LABS: Magnesium 1.9 mg/dL (1.6-2.6)
[2019-09-23 02:26] LABS: ALT (SGPT) 25 U/L (8-55); AST (SGOT) 26 U/L (5-34); Albumin 3.3 g/dL (3.5-5.0); Alkaline Phosphatase 104 U/L (40-110); Anion Gap 15 mmol/L (10-20); BUN (Urea Nitrogen) 10 mg/dL (8.4-25.7); Bilirubin, Total 0.4 mg/dL (0.2-1.2); Calc. Creatinine Clearance 101 mL/min (70-130); Calcium 7.9 mg/dL (7.8-10.44); Carbon Dioxide 26 mmol/L (22-29); Chloride 101 mmol/L (98-107); Estimated GFR-MDRD Greater than 90; Globulin 2.6 g/dL (2.4-3.5); Glucose 217 mg/dL (70-105); Potassium 3.4 mmol/L (3.5-5.1); Protein, Total 5.9 g/dL (6.0-8.3); Sodium 139 mmol/L (136-145)
[2019-09-23 02:27] LABS: Phosphorus 1.6 mg/dL (2.3-4.7)
[2019-09-23] MEDS: Potassium Phosphate 9 MMOL in Sodium Chloride 0.9% 100 ML IVPB PRN (03:04)
[2019-09-23 04:56] LABS: #Lymphocytes 0.6 thou/uL (1.20-3.40); #Monocytes 0.7 thou/uL (0.11-0.59); #Neutrophils 8.9 thou/uL (1.40-6.50); %Eosinophils 0.2 % (0.0-10.0); %Monocytes 6.4 % (0.0-10.0); %Neutrophils 87.4 % (42.0-75.0); Hemoglobin 12.7 g/dL (14.0-18.0); Mean Corpuscular HGB CONC 32.9 g/dL (32.0-36.0); Mean Corpuscular Hemoglobin 29.7 pg (27.0-31.0); Mean Corpuscular Volume 90.3 fL (78.0-98.0); Mean Platelet Volume 8.7 fL (7.4-10.4); Platelet Count 182 thou/uL (130-400); RBC Distribution Width 16.7 % (11.5-14.5); Red Blood Cell (RBC) Count 4.27 mill/uL (4.70-6.10); White Blood Cell (WBC) Count 10.2 thou/uL (4.8-10.8)
[2019-09-23] MEDS: metroNIDAZOLE 500 MG in Premix Bag 1 BAG IVPB SCH ×3 (04:57→21:39)
[2019-09-23] MEDS: methylPREDNISolone Sod Succ 40 MG VIAL IVP SCH ×4 (04:58→17:18)
[2019-09-23 05:13] LABS: Vancomycin, Trough 19.6 ug/mL
[2019-09-23] MEDS ORDERED: Potassium Phosphate 30 MMOL in Sodium Chloride 0.9% 500 ML IVPB SCH (06:00)
[2019-09-23] MEDS ORDERED: Magnesium 2 GM/50 ML 1 GM in Premix Bag 1 BAG IVPB SCH (06:00)
--- NOTE | 2019-09-23 06:04 | PDOC.FM ---
- Subjective Subjective: Patient has episodes of both severe range bradycardia and tachycardia overnight with a HR ranging from the 40s to the 200, resulting in stopping his precedex drip and giving his metoprolol @ ~0130 this AM. Remains intubated and sedated with propofol. - Objective MAR Reviewed: Yes Vital Signs & Weight: Vital Signs (12 hours) Temp Pulse Resp BP Pulse Ox 09/23/19 04:00 99.4 F 30 H 09/23/19 02:18 102 H 114/84 09/23/19 02:00 26 H 09/23/19 00:12 115 H 97/73 09/23/19 00:00 99.1 F 27 H 09/22/19 22:13 101 H 107/72 09/22/19 22:00 27 H 09/22/19 20:00 21 H 100 09/22/19 19:00 98 F 09/22/19 18:20 87 80/56 L Weight Admit Weight 58.06 kg Weight 60 kg Most Recent Monitor Data Heart Rate from ECG 114 NIBP 130/84 NIBP BP-Mean 99 Respiration from ECG 26 SpO2 98 I&O: 09/21/19 09/22/19 09/23/19 06:59 06:59 06:59 Intake Total 3001.9 1991.2 2281.4 Output Total 2730 1635 2581 Balance 271.9 356.2 -299.6 Result Diagrams: 09/23/19 04:36 09/23/19 01:46 Phys Exam - Physical Examination Constitutional: NAD intubated & sedated; not following commands HEENT: moist MMs Neck: supple Respiratory: no wheezing, no rales, no rhonchi, clear to auscultation bilateral Cardiovascular: no significant murmur tachycardic but regular rhythm Gastrointestinal: soft, no distention, positive bowel sounds Musculoskeletal: no edema, pulses present Neurological: moves all 4 limbs Skin: no rash, normal turgor Deviation from normal: draining sinus tract in R upper back Dx/Plan (1) GERD (gastroesophageal reflux disease) Code(s): K21.9 - GASTRO-ESOPHAGEAL REFLUX DISEASE WITHOUT ESOPHAGITIS Status: Chronic (2) Altered mental state Code(s): R41.82 - ALTERED MENTAL STATUS, UNSPECIFIED Status: Acute (3) Hypoglycemia Code(s): E16.2 - HYPOGLYCEMIA, UNSPECIFIED Status: Resolved (4) Seizure Code(s): R56.9 - UNSPECIFIED CONVULSIONS Status: Resolved (5) Acute on chronic respiratory failure with hypoxia and hypercapnia Code(s): J96.21 - ACUTE AND CHRONIC RESPIRATORY FAILURE WITH HYPOXIA; J96.22 - ACUTE AND CHRONIC RESPIRATORY FAILURE WITH HYPERCAPNIA Status: Acute (6) Anxiety and depression Status: Chronic (7) HTN (hypertension) Code(s): I10 - ESSENTIAL (PRIMARY) HYPERTENSION Status: Chronic Qualifiers: (8) COPD (chronic obstructive pulmonary disease) Status: Chronic (9) Lung transplant status, bilateral Code(s): Z94.2 - LUNG TRANSPLANT STATUS Status: Chronic (10) Diabetes mellitus type 2 in nonobese Code(s): E11.9 - TYPE 2 DIABETES MELLITUS WITHOUT COMPLICATIONS Status: Chronic (11) HFrEF (heart failure with reduced ejection fraction) Code(s): I50.20 - UNSPECIFIED SYSTOLIC (CONGESTIVE) HEART FAILURE Status: Chronic (12) Coronary artery disease Code(s): I25.10 - ATHSCL HEART DISEASE OF [place] CORONARY ARTERY W/O ANG PCTRS Status: Chronic (13) HLD (hyperlipidemia) Code(s): E78.5 - HYPERLIPIDEMIA, UNSPECIFIED Status: Chronic Qualifiers: - Plan Plan: Acute metabolic encephalopathy 2/2 severe hypoglycemia - Most likely 2/2 hypoglycemia as blood glucose of 24 per EMS when found at home. However, given immunocompromised state & reported productive could, could be underlying infection contributing to this as well. - BG ranging from 150-190s over course of day yesterday. Will continue Q4H accuchecks and mild SSI while on tube feeds & start on [facility] lantus 6U QAM to keep BG between 140-180 while inpatient. Hypoglycemia protocol in place as well. Acute on chronic hypoxic respiratory failure - Most likely 2/2 problem #1 w/ associated seizure-like activity. Unable to wean from ventilatory support yesterday. 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 Most likely as to why his respiratory status is so compromised; however, will continue [facility] IV steroids, Duonebs, & abx & attempt to wean ventilatory support & sedation as tolerated by patient. - Sputum Cx pending from yesterday & showing gram + cocci in pairs & gram + rods. Blood & urine Cxs NTD. - Will discuss goals of care with family this AM as to whether or not patient would desire a tracheostomy again should it come to this. Will consult PC as well as it has been brought to our attention that patient was already considering hospice prior to this hospitalization. - Pulmonology, Dr. Judge, on board, appreciate recommendations. Arrthymia: SVT and sinus bradycardia - Patient's HR ranged from 40s to 200s overnight. Required his SABINA metoprolol dose earlier than SABINA. Will consider increasing to home dose of 100BID as his BP tolerates. Likely multifactorial and could be 2/2 electrolyte derangements compounded by both BB and opioid withdrawal as per PCP, pt was on [place] for a while which was stopped and then restarted many months ago but patient has not returned to clinic since for refills. However, tested + on admission. Will consider resuming SABINA [place] in addition to metoprolol and replace lytes PRN. - Cardiology, Dr. Sutton, on board. Appreciate recs. Hypokalemia - K 3.4 this AM. Will give 30mmol IV KPhos & recheck tomorrow AM. Hypomagnesemia - Mg low at 1.9 this AM. Will give 1g IV now. Hypophosphatemia - Low at 1.6 this AM. Will give 30mmol of K-phos IV & recheck a level in the AM. Right shoulder soft tissue infection - Right should notable for sinus tract w/ purulent discharge on admission. Will continue Empiric abx with Vancomycin as prelim Cx showing moderate amount of skin barrett. - WC on board. Seizure-like activity, resolved - Most likely 2/2 severe hypoglycemia but need to r/o other potential causes. EEG did not show persistent or ongoing epileptiform activity but did show diffuse slowing c/w encephalopathic process per neuro. Brain MRI to be done once patient less agitated & able to remain still. Dr. Escobedo with neurology on board, appreciate recs. - Lorazepam prn & SABINA keppra BID for seizure activity. Will add valproate 500mg BID if keppra not adequate for seizure control per neuro. - Continue seizure precautions. Suspected CAP/COPD exacerbation - See plan for problem #2. Remains stable on mechanical ventilation. COPD s/p Lung Transplantation - Will continue anti-rejection meds per pulm recs. - Tacrolimus level within therapeutic window at 6.7. HFrEF - EF 40-45% per last cards eval. Repeat ECHO pending. Continue home metoprolol as tolerated by patient. CAD - Multi-vessel disease found on cath per cards. Continue ASA & statin. IDDM II, steroid induced - Will continue mild SSI w/ 6U lantus SABINA QAM as patient has required 6U SSI for last 2 days. Goal is to keep BG between 140-180 while inpatient. Hypertension - Will resume home meds as tolerated by patient. Anxiety and depression - Will resume home meds per tube as tolerated by patient. GERD - Famotidine BID until tolerating PO. Disposition/LOS: Guarded, inpatient. LOS will be >48 hours. VTE: Lovenox GI ppx: Pepcid Abx: Levaquin, metronidazole, & vancomycin (day #4) IVFs: KVO Drains/lines/tubes: ET & NG tubes, hernandez & R AC peripheral lines started/placed on 09/20/19 (day #4), B/L hand lines placed on 09/22/19 (day #2) Code: Full PCP: TOÑA Olea Addendum - Attending - Attending Attestation Date/Time: 09/23/19 1007 I personally evaluated the patient and discussed the management with Dr. Leonard. I agree with the History, Examination, Assessment and Plan documented above with any addition or exceptions noted below. Pulse remains labile and will have runs of non sustained SVT into 200s. During my examination his baseline HR appeared to be 110s to 120s but would have runs of SVT lasting a few seconds frequently. Cardiology increasing metoprolol to 50 TID. Currently off amiodorone drip. Will discuss with pulm adding fentanyl to sedation in case patient is experiencing pain. UDS was positive for opiates but received fentanyl in ER. [employer] reviewed and he has not had refill for opiates in almost 6 months. He had a few recent refills for benzos but UDS was negative. Patient does not have hx of EtOH use but will further verify with family as this could be related to alcohol withdraw and is the appropriate timing for these symptoms to appear. The patient's family was not in the room at the time of my examination but per Dr. Leonard, family states the patient DOES NOT want a tracheostomy tube placed. Will continue to titrate up metoprolol as this may be due to betablocker withdrawal. Appreciate recommendations from consulting services.
[2019-09-23] MEDS: Vancomycin HCl 1 GM in Premix Bag 1 BAG IVPB SCH ×3 (06:06→22:58)
[2019-09-23] MEDS ORDERED: Metoprolol Tartrate 5 MG/5 ML VIAL IVP SCH (07:45)
[2019-09-23] MEDS: Famotidine/PF 20 mg/2ml Vial SLOW IVP SCH ×2 (08:07→21:39)
[2019-09-23] MEDS: Enoxaparin Sodium 40 MG/0.4 ML SYRINGE SC SCH (08:10)
[2019-09-23] MEDS ORDERED: Potassium Phosphate 30 MMOL in Sodium Chloride 0.9% 250 ML 250 ML IVPB SCH (08:15)
[2019-09-23] MEDS: Aspirin Chewable 81 MG TAB PER TUBE SCH (08:16)
[2019-09-23] MEDS: HumaLOG 300 UNITS/3 ML VIAL SC PRN ×2 (08:29→17:50)
[2019-09-23] MEDS ORDERED: Aspirin 81 mg Enteric Coated Tablet PER TUBE SCH (09:00)
[2019-09-23] MEDS ORDERED: Insulin Glargine 6 UNITS in Pre-Filled Syringe 1 EACH SC SCH (09:00)
[2019-09-23] MEDS: Nystatin 500,000 UNITS/5 ML UDCUP SSW SCH ×4 (09:07→21:40)
[2019-09-23] MEDS: Tacrolimus 0.5 MG CAP PER TUBE SCH (09:08)
--- NOTE | 2019-09-23 09:20 | PDOC.PALCO ---
Palliative Care Consult - Consult Details Requesting Physician: Dr Leonard Reason for Consult: goals of care, assistance with communication prognosis/ disease, family support Family Members Present: Patient Susan daughter Raisa, on the phone is patient sisters Charisma - Pertinent HPI 59 year old male who was a bilateral lung transplant in 2017, he had previously stopped taking antirejection medications. History given is he was found unresponsive in his home 09/20/2019 and EMS was called, last known time of his usual state of health was 10pm the previous night. Upon arrival EMS determined his glucose was 24, given glucagon and transported to the emergency room where he was intubated secondary to nonresponsive state. Patient was admitted to CCU for further evaluation, medical management and higher level of care. Family meeting today with patient , and one of his daughters and Dr Leonard. - Pertinent PMH DM II, Major depressive disorder, Anxiety, HTN, lung transplant 2017, COPD - Social History Smoking Status: Former smoker Smoking: quit greater than 1 year Alcohol Use: none Drug Use History: none Living Situation: - Medications MAR Reviewed: Yes - Allergies Allergies/Adverse Reactions: Allergies Allergy/AdvReac Type Severity Reaction Status Date / Time amoxicillin Allergy Verified 07/15/16 23:26 - Subjective mechanical ventilation, encephalopathy - ROS Non Response: due to endotracheal tube, due to mental status - Objective Vital Signs: Vital Signs - Most Recent Temp Pulse Resp BP Pulse Ox 99.4 F 138 H 28 H 114/84 100 09/23/19 04:00 09/23/19 07:02 09/23/19 08:00 09/23/19 02:18 09/22/19 20:00 Palliative Performance Scale: 20 - Physical Exam Constitutional: encephalitic, ill appearing HEENT: moist MMs Respiratory: wheezing present Deviation from normal: Mechanical ventilation Cardiovascular: RRR Gastrointestinal: positive bowel sounds, incontinent Genitourinary: hernandez catheter Musculoskeletal: pulses present Neurology: non-focal Skin: no lesions, no rash (encephalopathic) - Problem List (1) Palliative care encounter Code(s): Z51.5 - ENCOUNTER FOR PALLIATIVE CARE Current Visit: Yes Status: Acute (2) Altered mental state Code(s): R41.82 - ALTERED MENTAL STATUS, UNSPECIFIED Current Visit: Yes Status: Acute (3) COPD (chronic obstructive pulmonary disease) Current Visit: Yes Status: Chronic (4) Diabetes mellitus type 2 in nonobese Code(s): E11.9 - TYPE 2 DIABETES MELLITUS WITHOUT COMPLICATIONS Current Visit : Yes Status: Chronic (5) HFrEF (heart failure with reduced ejection fraction) Code(s): I50.20 - UNSPECIFIED SYSTOLIC (CONGESTIVE) HEART FAILURE Current Visit: Yes Status: Chronic (6) Lung transplant status, bilateral Code(s): Z94.2 - LUNG TRANSPLANT STATUS Current Visit: Yes Status: Chronic (7) Anxiety and depression Current Visit: No Status: Chronic - Plan/Recommendations Plan: Dr Leonard discussed current health status. Family confirmed that patient had expressed in the past he would not want a Trach if he ever required one again, he had one in the past. Revisited recent past history and that he had become non compliant with medications related to anti rejection post lung transplant. Prior to this hospitalization poor prognosis was given with suggestion of Hospice. Patient has 9 siblings, several are coming in to see him Saturday from [place]. Patient , Susan, expressed she will make decisions with family insight. *Will follow up for "teach back" with Susan or Raisa 09/24/2019 to evaluate understanding of information communicated *Continue with supportive care and will revisit Goals of Care inline with Dr Leonard and Dr Judge. [75] minutes spent on this encounter with >50% of the time in counseling and coordination of care. Thank you for this very appropriate consult.
[2019-09-23 09:28] LABS: Vancomycin, Trough 36.3 ug/mL
[2019-09-23] MEDS: Morphine 2 MG/ML SYRINGE SLOW IVP PRN (10:06)
[2019-09-23] MEDS ORDERED: Potassium Chloride 20 MEQ TAB PER TUBE SCH (12:00)
[2019-09-23 13:20] LABS: Vancomycin, Trough 18.3 ug/mL
[2019-09-23] MEDS: Metoprolol Tartrate 50 MG TAB PER TUBE SCH ×2 (14:44→21:39)
--- NOTE | 2019-09-23 18:50 | PRG ---
DATE OF SERVICE: 09/23/2019 SERVICE: Pulmonary Medicine. INTERVAL HISTORY: The patient is doing fine from a respiratory standpoint. That being said, his lungs really have not opened up since he has been on the ventilator. They were about the same today as they were 3 days ago. He cannot provide any additional elements of the history currently. The Precedex was stopped overnight because of bradyarrhythmia. Once this was off, he went back into a tachyarrhythmia. Cardiology is following in escalating doses of his beta-juanjose. Otherwise, no nursing events were reported. PHYSICAL EXAMINATION: VITAL SIGNS: Afebrile, pulse 109, blood pressure 125/81, respirations 23, saturation 98% on 27% FiO2 and PEEP of 5. GENERAL: The patient is intubated and sedated. HEENT: Normocephalic and atraumatic. Sclerae white. Conjunctivae pink. Oral mucosa is moist without lesions. LUNGS: Good air entry. There is a prolonged expiratory phase. Fixed wheezing is present. HEART: Normal rate, regular. ABDOMEN: Soft, nontender, and nondistended. Bowel sounds are positive. MUSCULOSKELETAL: No cyanosis or clubbing. There is no pitting in bilateral lower extremities. NEUROLOGIC: Grossly nonfocal. LABORATORY DATA: WBC 10.2, hemoglobin 12.7, and platelets 182,000. Troponin is 0.09. Potassium 3.4. Basic metabolic profile and liver function studies are otherwise unremarkable. Phosphorus 6.1. Urinalysis is unremarkable. Vancomycin trough is 18. All culture results remain negative to date. ASSESSMENT: 1. Acute on chronic hypoxic respiratory failure. 2. Chronic obstructive pulmonary disease with acute exacerbation. 3. Bronchiolitis obliterans, suspected. 4. Metabolic encephalopathy secondary to hypoglycemia. 5. Seizure, likely secondary to hypoglycemia. DISCUSSION AND PLAN: The patient is doing fine from a respiratory standpoint. That being said, his lungs really are not opening up that much. All culture results are negative to date. The delay in tacrolimus levels is going to make it challenging to modify this medication through time, particularly since he is on so many antibiotics. Otherwise, supportive care will be continued including steroids and antibiotics as well as nebulized medication. CRITICAL CARE TIME: 30 minutes. Job ID: [id number]
[2019-09-23] MEDS: Atorvastatin Calcium 40 MG TAB PER TUBE SCH (21:39)
[2019-09-24] MEDS: VANCOMYCIN IVPB SCH ×3 (00:03→21:14)
[2019-09-24] MEDS: methylPREDNISolone Sod Succ 40 MG VIAL IVP SCH ×5 (00:03→22:59)
[2019-09-24] MEDS: Propofol 1,000 MG/100 ML VIAL IV PRN ×3 (03:15→21:13)
[2019-09-24 04:43] LABS: #Lymphocytes 0.4 thou/uL (1.20-3.40); #Monocytes 0.8 thou/uL (0.11-0.59); #Neutrophils 8.8 thou/uL (1.40-6.50); %Eosinophils 0.2 % (0.0-10.0); %Lymphocytes 3.6 % (21.0-51.0); %Monocytes 7.5 % (0.0-10.0); %Neutrophils 88.7 % (42.0-75.0); Hemoglobin 12.3 g/dL (14.0-18.0); Mean Corpuscular HGB CONC 33.2 g/dL (32.0-36.0); Mean Corpuscular Volume 90.3 fL (78.0-98.0); Mean Platelet Volume 8.6 fL (7.4-10.4); Platelet Count 195 thou/uL (130-400); RBC Distribution Width 16.6 % (11.5-14.5); Red Blood Cell (RBC) Count 4.12 mill/uL (4.70-6.10); White Blood Cell (WBC) Count 9.9 thou/uL (4.8-10.8)
[2019-09-24] MEDS: metroNIDAZOLE 500 MG in Premix Bag 1 BAG IVPB SCH ×3 (05:01→21:15)
[2019-09-24] MEDS: Metoprolol Tartrate 50 MG TAB PER TUBE SCH ×2 (05:02→18:32)
[2019-09-24 05:03] LABS: ALT (SGPT) 28 U/L (8-55); AST (SGOT) 28 U/L (5-34); Albumin 3.3 g/dL (3.5-5.0); Alkaline Phosphatase 99 U/L (40-110); Anion Gap 13 mmol/L (10-20); BUN (Urea Nitrogen) 10 mg/dL (8.4-25.7); Bilirubin, Total 0.6 mg/dL (0.2-1.2); Calc. Creatinine Clearance 105 mL/min (70-130); Calcium 8.3 mg/dL (7.8-10.44); Carbon Dioxide 33 mmol/L (22-29); Chloride 97 mmol/L (98-107); Estimated GFR-MDRD Greater than 90; Globulin 2.7 g/dL (2.4-3.5); Glucose 186 mg/dL (70-105); Potassium 3.6 mmol/L (3.5-5.1); Sodium 139 mmol/L (136-145)
[2019-09-24 05:11] LABS: Phosphorus 1.8 mg/dL (2.3-4.7)
[2019-09-24] MEDS ORDERED: Metoprolol Tartrate 50 MG TAB PO SCH (06:00)
[2019-09-24] MEDS ORDERED: Magnesium 2 GM/50 ML 2 GM in Premix Bag 1 BAG IVPB SCH (06:00)
--- NOTE | 2019-09-24 06:03 | PDOC.FM ---
- Subjective Subjective: NAEO. pulse improving - Objective Vital Signs & Weight: Vital Signs (12 hours) Temp Pulse Resp BP Pulse Ox 09/24/19 04:00 98.7 F 29 H 09/24/19 02:10 110 H 106/75 09/24/19 02:00 25 H 09/24/19 00:00 98.6 F 21 H 09/23/19 23:49 97 107/79 09/23/19 22:01 112 H 138/70 09/23/19 22:00 35 H 09/23/19 20:00 99 F 31 H 100 09/23/19 18:04 109 H 125/81 09/23/19 18:00 23 H Weight Admit Weight 58.06 kg Weight 60 kg Most Recent Monitor Data Heart Rate from ECG 108 NIBP 111/79 NIBP BP-Mean 89 Respiration from ECG 30 SpO2 98 I&O: 09/22/19 09/23/19 09/24/19 06:59 06:59 06:59 Intake Total 1991.2 2986.3 2062.9 Output Total 1635 2781 3478 Balance 356.2 205.3 -1415.1 Result Diagrams: 09/24/19 04:25 09/24/19 04:25 Phys Exam - Physical Examination Constitutional: NAD HEENT: moist MMs, sclera anicteric Respiratory: no wheezing, clear to auscultation bilateral Cardiovascular: RRR, no significant murmur Gastrointestinal: soft, non-tender Musculoskeletal: no edema Neurological: non-focal, moves all 4 limbs Skin: no rash Deviation from normal: viewed wound on back. tracks 1-2 cm toward head and 1-2 cm laterally. -: packing clear without purulent discharge. Dx/Plan (1) GERD (gastroesophageal reflux disease) Code(s): K21.9 - GASTRO-ESOPHAGEAL REFLUX DISEASE WITHOUT ESOPHAGITIS Status: Chronic (2) Altered mental state Code(s): R41.82 - ALTERED MENTAL STATUS, UNSPECIFIED Status: Acute (3) Hypoglycemia Code(s): E16.2 - HYPOGLYCEMIA, UNSPECIFIED Status: Resolved (4) Seizure Code(s): R56.9 - UNSPECIFIED CONVULSIONS Status: Resolved (5) Acute on chronic respiratory failure with hypoxia and hypercapnia Code(s): J96.21 - ACUTE AND CHRONIC RESPIRATORY FAILURE WITH HYPOXIA; J96.22 - ACUTE AND CHRONIC RESPIRATORY FAILURE WITH HYPERCAPNIA Status: Acute (6) Anxiety and depression Status: Chronic (7) HTN (hypertension) Code(s): I10 - ESSENTIAL (PRIMARY) HYPERTENSION Status: Chronic Qualifiers: (8) COPD (chronic obstructive pulmonary disease) Status: Chronic (9) Lung transplant status, bilateral Code(s): Z94.2 - LUNG TRANSPLANT STATUS Status: Chronic (10) Diabetes mellitus type 2 in nonobese Code(s): E11.9 - TYPE 2 DIABETES MELLITUS WITHOUT COMPLICATIONS Status: Chronic (11) HFrEF (heart failure with reduced ejection fraction) Code(s): I50.20 - UNSPECIFIED SYSTOLIC (CONGESTIVE) HEART FAILURE Status: Chronic (12) Coronary artery disease Code(s): I25.10 - ATHSCL HEART DISEASE OF [place] CORONARY ARTERY W/O ANG PCTRS Status: Chronic (13) HLD (hyperlipidemia) Code(s): E78.5 - HYPERLIPIDEMIA, UNSPECIFIED Status: Chronic Qualifiers: (14) Paroxysmal SVT (supraventricular tachycardia) Code(s): I47.1 - SUPRAVENTRICULAR TACHYCARDIA Status: Acute - Plan Plan: Acute metabolic encephalopathy 2/2 severe hypoglycemia - Most likely 2/2 hypoglycemia as blood glucose of 24 per EMS when found at home. However, given immunocompromised state & reported productive could, could be underlying infection contributing to this as well. - BG still ranging from 150-190s over course of day yesterday. Will increase accuchecks to Q6H and continue mild SSI w/ SABINA lantus to keep BG between 140- 180 while inpatient. Hypoglycemia protocol in place as well. Acute on chronic hypoxic respiratory failure - Most likely 2/2 problem #1 w/ associated seizure-like activity. Unable to wean from ventilatory support yesterday. 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 Most likely as to why his respiratory status is so compromised; however, will continue SABINA IV steroids, Duonebs, & abx & attempt to wean ventilatory support & sedation as tolerated by patient. - Prelim sputum Cx showing gram + cocci in pairs & gram + rods. Blood & urine Cxs NTD. - Goals of care discussed with some family yesterday AM as to whether or not patient would desire a tracheostomy again should it come to this. Family expressed he did not but stated she would like to discuss with patient's siblings as well tomorrow. PC at meeting & on board as well. - Pulmonology, Dr. Judge, on board, appreciate recommendations. SVT - Patient's HR ranged from 90s to 1100s overnight. Likely multifactorial and could be 2/2 electrolyte derangements compounded by BB withdrawal. Will replace lytes PRN & increase to home metoprolol dose of 100BID today. - Cardiology, Dr. Sutton, on board. Appreciate recs. Hypokalemia, resolved - K 3.6 this AM. Will give 30mmol IV KPhos & recheck tomorrow AM. Hypomagnesemia - Mg low at 1.6 this AM. Will give 2g IV now. Hypophosphatemia - Low at 1.8 this AM. Will give 30mmol of K-phos IV & recheck a level in the AM. Right shoulder soft tissue infection - Right should notable for sinus tract w/ purulent discharge on admission. Will continue Empiric abx with Vancomycin as final Cx grew a moderate amount of skin barrett & sputum Cx results still pending with similar looking bacterium. Will call lab today to confirm speciation. - WC on board. Seizure-like activity, resolved - Most likely 2/2 severe hypoglycemia but need to r/o other potential causes. EEG did not show persistent or ongoing epileptiform activity but did show diffuse slowing c/w encephalopathic process per neuro. Brain MRI to be done once patient less agitated & able to remain still. Dr. Escobedo with neurology on board, appreciate recs. - Lorazepam prn & SABINA keppra BID for seizure activity. Will add valproate 500mg BID if keppra not adequate for seizure control per neuro. - Continue seizure precautions. Suspected CAP/COPD exacerbation - See plan for problem #2. Remains stable on mechanical ventilation. COPD s/p Lung Transplantation - Will continue anti-rejection meds per pulm recs. - Tacrolimus level within therapeutic window at 6.7. HFrEF - EF 40-45% per last cards eval. Repeat ECHO pending. Continue home metoprolol as tolerated by patient. CAD - Multi-vessel disease found on cath per cards. Continue ASA & statin. IDDM II, steroid induced - Will continue mild SSI w/ 8U lantus SABINA QAM as patient has required 4U SSI yesterday w/ SABINA lantus. Goal is to keep BG between 140-180 while inpatient. Hypertension - Will resume home meds as tolerated by patient. Anxiety and depression - Will resume home meds per tube as tolerated by patient. GERD - Famotidine BID until tolerating PO. Disposition/LOS: Remains guarded. Will continue close monitoring in the CCU. VTE: Lovenox GI ppx: Pepcid Abx: Levaquin, metronidazole, & vancomycin (day #5) IVFs: KVO Drains/lines/tubes: ET & NG tubes, hernandez & L AC peripheral lines started/placed on 09/20/19 (day #5), B/L hand lines placed on 09/22/19 (day #3) Code: Full PCP: TOÑA Olea Addendum - Attending - Attending Attestation Date/Time: 09/24/19 4980 I personally evaluated the patient and discussed the management with Dr. Leonard. I agree with the History, Examination, Assessment and Plan documented above with any addition or exceptions noted below. Pulse improving with beta juanjose. Still not following commands. Awaiting additional specialist recs.
[2019-09-24] MEDS: Vancomycin HCl 1 GM in Premix Bag 1 BAG IVPB SCH ×3 (06:06→22:54)
[2019-09-24] MEDS ORDERED: Potassium Phosphate 30 MMOL in Sodium Chloride 0.9% 500 ML IVPB SCH (06:30)
[2019-09-24] MEDS ORDERED: Potassium Phosphate 30 MMOL in Sodium Chloride 0.9% 250 ML 250 ML IVPB SCH (06:30)
--- NOTE | 2019-09-24 08:17 | EKG ---
Test Reason : STAT TACHY Blood Pressure : / mmHG Vent. Rate : 134 BPM Atrial Rate : 134 BPM P-R Int : 134 ms QRS Dur : 082 ms QT Int : 288 ms P-R-T Axes : 081 089 054 degrees QTc Int : 430 ms Sinus tachycardia with Premature atrial complexes Possible Left atrial enlargement Abnormal ECG When compared with ECG of 20-SEP-2019 20:40, (Unconfirmed) Premature atrial complexes are now Present T wave inversion now evident in Inferior leads Nonspecific T wave abnormality has replaced inverted T waves in Anterior leads Confirmed by DR. Charlie GUAJARDO ([id number]) on 09/24/2019 8:17:01 AM Referred By: Luke LLAMAS Confirmed By:DR. Charlie GUAJARDO
--- NOTE | 2019-09-24 08:17 | EKG ---
Test Reason : STAT Blood Pressure : / mmHG Vent. Rate : 108 BPM Atrial Rate : 108 BPM P-R Int : 130 ms QRS Dur : 086 ms QT Int : 344 ms P-R-T Axes : 080 081 078 degrees QTc Int : 460 ms Sinus tachycardia Possible Left atrial enlargement Left ventricular hypertrophy Nonspecific T wave abnormality Abnormal ECG When compared with ECG of 28-AUG-2019 22:56, (Unconfirmed) ST no longer elevated in Inferior leads Non-specific change in ST segment in Lateral leads Inverted T waves have replaced nonspecific T wave abnormality in Anterior leads Confirmed by DR. Charlie GUAJARDO ([id number]) on 09/24/2019 8:16:43 AM Referred By: MURIEL Confirmed By:DR. Charlie GUAJARDO
--- NOTE | 2019-09-24 08:26 | EKG ---
Test Reason : STAT Blood Pressure : / mmHG Vent. Rate : 193 BPM Atrial Rate : 197 BPM P-R Int : 000 ms QRS Dur : 084 ms QT Int : 242 ms P-R-T Axes : 000 084 -48 degrees QTc Int : 433 ms Supraventricular tachycardia Abnormal ECG When compared with ECG of 21-SEP-2019 05:16, (Unconfirmed) Premature atrial complexes are no longer Present ST more depressed in Anterior leads T wave inversion now evident in Lateral leads Confirmed by DR. Charlie GUAJARDO ([id number]) on 09/24/2019 8:26:21 AM Referred By: VANIA Confirmed By:DR. Charlie GUAJARDO
[2019-09-24] MEDS ORDERED: Insulin Glargine 8 UNITS in Pre-Filled Syringe 1 EACH SC SCH (09:00)
[2019-09-24] MEDS ORDERED: Metoprolol Tartrate 100 MG TAB PER TUBE SCH (09:00)
[2019-09-24] MEDS: Tacrolimus 0.5 MG CAP PER TUBE SCH (09:05)
[2019-09-24] MEDS: Famotidine/PF 20 mg/2ml Vial SLOW IVP SCH ×2 (09:06→21:14)
[2019-09-24] MEDS: Enoxaparin Sodium 40 MG/0.4 ML SYRINGE SC SCH (09:06)
[2019-09-24] MEDS: Aspirin Chewable 81 MG TAB PER TUBE SCH (09:07)
[2019-09-24] MEDS: HumaLOG 300 UNITS/3 ML VIAL SC PRN ×2 (09:25→18:26)
[2019-09-24] MEDS: Nystatin 500,000 UNITS/5 ML UDCUP SSW SCH ×4 (10:35→21:14)
[2019-09-24 13:54] LABS: Vancomycin, Trough 13.3 ug/mL
--- NOTE | 2019-09-24 14:39 | PRG ---
DATE OF SERVICE: 09/24/2019 SERVICE: Pulmonary Medicine. INTERVAL HISTORY: The patient is doing poorly from respiratory standpoint. He remains on mechanical ventilator. His heart rate is under better control today. The obstructive contour on his lungs has yet to improve. Otherwise, there has been no interval change to his condition. PHYSICAL EXAMINATION: VITAL SIGNS: Afebrile; pulse 115; blood pressure 122/87; respirations 22; and saturation 99%, currently on 27% FiO2 and a PEEP of 5. GENERAL: The patient is intubated and sedated. With a sedation holiday, he wakes up appropriately and moves all 4 extremities with purpose. HEENT: Normocephalic and atraumatic. Sclerae are white. Conjunctivae are pink. Oral mucosa is moist without lesions. LUNGS: Good air entry. There is a prolonged expiratory phase, but no wheezing is present. HEART: Normal rate, regular. ABDOMEN: Soft, nontender, and nondistended. Bowel sounds positive. MUSCULOSKELETAL: No cyanosis or clubbing. There is no pitting in bilateral lower extremities. NEUROLOGIC: Grossly nonfocal. LABORATORY DATA: WBC 9.9, hemoglobin 12.3, and platelets 195,000 and stable. PH of 7.47, pCO2 of 44. Basic metabolic profile is unremarkable. Bicarb is 33 and likely at his baseline. Liver function studies are unremarkable. Magnesium 1.6, phosphorus 1.8, and potassium 3.6. In general, these numbers seem to be improving. Culture results all remain unremarkable. ASSESSMENT: 1. Acute on chronic hypoxic respiratory failure. 2. Chronic obstructive pulmonary disease with acute exacerbation. 3. Bronchiolitis obliterans, suspected. 4. Metabolic encephalopathy secondary to hypoglycemia. 5. Seizure, likely secondary to hypoglycemia. DISCUSSION AND PLAN: We will need to put the patient on a spontaneous breathing trial within the next 24 to 48 hours to see if he can liberate from mechanical ventilation. His family is telling us that he would not want to undergo repeat tracheostomy. As such, we will reach out to his transplant organization to make certain, they are okay with us transitioning over to comfort care only on Mr. Turcios. It is my understanding that he may be in this situation because he had, had a significant holiday from his anti-rejection medications. Critical Care will follow. Critical care time: 30 minutes. Job ID: [id number] [facility] [place] [facility]
[2019-09-24] MEDS ORDERED: Digoxin 0.5 MG/2 ML AMP SLOW IVP SCH (15:00)
--- NOTE | 2019-09-24 16:03 | PDOC.PALPN ---
Palliative Progress Note - Subjective Mechanically ventilated, sedated. As per staff moves extremities with sedation holiday. No family at bedside, called arvind Davis. - Objective Vital Signs: Vital Signs - Most Recent Temp Pulse Resp BP Pulse Ox 99.4 F 157 H 26 H 106/75 98 09/24/19 12:00 09/24/19 15:01 09/24/19 14:00 09/24/19 02:10 09/24/19 12:00 - Physical Exam Constitutional: encephalitic, ill appearing HEENT: moist MMs, sclera anicteric Deviation from normal: Mechanical ventilation Cardiovascular: RRR Gastrointestinal: non-tender Genitourinary: hernandez catheter Musculoskeletal: no clubbing, pulses present Deviation from normal: scant non pitting edema Skin: cap refill <2 seconds Deviation from normal: sedated - Assessment (1) Palliative care encounter Code(s): Z51.5 - ENCOUNTER FOR PALLIATIVE CARE Current Visit: Yes Status: Acute (2) Altered mental state Code(s): R41.82 - ALTERED MENTAL STATUS, UNSPECIFIED Current Visit: Yes Status: Acute (3) COPD (chronic obstructive pulmonary disease) Current Visit: Yes Status: Chronic (4) Diabetes mellitus type 2 in nonobese Code(s): E11.9 - TYPE 2 DIABETES MELLITUS WITHOUT COMPLICATIONS Current Visit : Yes Status: Chronic (5) HFrEF (heart failure with reduced ejection fraction) Code(s): I50.20 - UNSPECIFIED SYSTOLIC (CONGESTIVE) HEART FAILURE Current Visit: Yes Status: Chronic (6) Lung transplant status, bilateral Code(s): Z94.2 - LUNG TRANSPLANT STATUS Current Visit: Yes Status: Chronic (7) Anxiety and depression Current Visit: No Status: Chronic - Plan Plan: Called Susan. Patient siblings to arrive Saturday09/24/2019. revisited that patient in the past expressed he did not desire to have a trach if ever again required. Supportive listening. Encouraged family to bring questions tomorrow and notify Dr Leonard when they are her to further discuss goal of care. Will communicate with Spiritual Care for support for family. [40] minutes spent on this encounter with >50% of the time in counseling and coordination of care. - ROS Non Response: due to endotracheal tube, due to mental status
[2019-09-24] MEDS: Atorvastatin Calcium 40 MG TAB PER TUBE SCH (21:14)
[2019-09-25] MEDS: HumaLOG 300 UNITS/3 ML VIAL SC PRN ×2 (00:44→05:13)
[2019-09-25] MEDS: Lorazepam 2 MG/ML VIAL SLOW IVP PRN (02:43)
[2019-09-25 04:01] LABS: ALT (SGPT) 32 U/L (8-55); AST (SGOT) 31 U/L (5-34); Albumin 3.2 g/dL (3.5-5.0); Alkaline Phosphatase 113 U/L (40-110); Anion Gap 12 mmol/L (10-20); BUN (Urea Nitrogen) 13 mg/dL (8.4-25.7); Bilirubin, Total 0.5 mg/dL (0.2-1.2); Calc. Creatinine Clearance 99 mL/min (70-130); Calcium 8.4 mg/dL (7.8-10.44); Carbon Dioxide 32 mmol/L (22-29); Chloride 97 mmol/L (98-107); Estimated GFR-MDRD Greater than 90; Globulin 2.8 g/dL (2.4-3.5); Glucose 188 mg/dL (70-105); Magnesium 1.8 mg/dL (1.6-2.6); Potassium 3.6 mmol/L (3.5-5.1); Sodium 137 mmol/L (136-145)
[2019-09-25] MEDS: methylPREDNISolone Sod Succ 40 MG VIAL IVP SCH ×3 (05:17→17:28)
[2019-09-25] MEDS: metroNIDAZOLE 500 MG in Premix Bag 1 BAG IVPB SCH ×3 (05:17→21:16)
[2019-09-25] MEDS: Metoprolol Tartrate 50 MG TAB PER TUBE SCH ×2 (05:56→17:27)
[2019-09-25] MEDS: Vancomycin HCl 1 GM in Premix Bag 1 BAG IVPB SCH (06:00)
--- NOTE | 2019-09-25 06:35 | PDOC.FM ---
- Subjective Subjective: NAEO. Pulse ranging from 110s-170s overnight despite increasing metoprolol to home dose. - Objective MAR Reviewed: Yes Vital Signs & Weight: Vital Signs (12 hours) Temp Pulse Resp BP Pulse Ox 09/25/19 06:23 101 H 123/86 09/25/19 06:00 26 H 09/25/19 04:00 98.8 F 21 H 09/25/19 02:23 121 H 135/92 H 09/25/19 02:00 30 H 09/25/19 00:00 98.7 F 19 09/24/19 23:39 103 H 114/82 09/24/19 22:02 96 107/85 09/24/19 22:00 15 09/24/19 20:00 98.7 F 15 96 09/24/19 19:00 98.5 F 09/24/19 18:35 123 H 117/77 Weight Admit Weight 58.06 kg Weight 49.3 kg Most Recent Monitor Data Heart Rate from ECG 121 NIBP 165/111 NIBP BP-Mean 129 Respiration from ECG 26 SpO2 98 I&O: 09/23/19 09/24/19 09/25/19 06:59 06:59 06:59 Intake Total 2986.3 2493.7 2858 Output Total 2781 3733 1800 Balance 205.3 -1239.3 1058 Result Diagrams: 09/24/19 04:25 09/25/19 03:00 Phys Exam - Physical Examination Constitutional: NAD HEENT: moist MMs Neck: supple Respiratory: no wheezing, no rales, no rhonchi Cardiovascular: no significant murmur tachycardic Gastrointestinal: soft, non-tender, no distention, positive bowel sounds Musculoskeletal: no edema, pulses present Neurological: moves all 4 limbs not following commands but pulls away from painful stimuli Skin: no rash, normal turgor Deviation from normal: ~2.5 cm deep tracking wound in center of upper back covered in clean, dry -: & intact dressing Dx/Plan (1) GERD (gastroesophageal reflux disease) Code(s): K21.9 - GASTRO-ESOPHAGEAL REFLUX DISEASE WITHOUT ESOPHAGITIS Status: Chronic (2) Altered mental state Code(s): R41.82 - ALTERED MENTAL STATUS, UNSPECIFIED Status: Acute (3) Hypoglycemia Code(s): E16.2 - HYPOGLYCEMIA, UNSPECIFIED Status: Resolved (4) Seizure Code(s): R56.9 - UNSPECIFIED CONVULSIONS Status: Resolved (5) Acute on chronic respiratory failure with hypoxia and hypercapnia Code(s): J96.21 - ACUTE AND CHRONIC RESPIRATORY FAILURE WITH HYPOXIA; J96.22 - ACUTE AND CHRONIC RESPIRATORY FAILURE WITH HYPERCAPNIA Status: Acute (6) Anxiety and depression Status: Chronic (7) HTN (hypertension) Code(s): I10 - ESSENTIAL (PRIMARY) HYPERTENSION Status: Chronic Qualifiers: (8) COPD (chronic obstructive pulmonary disease) Status: Chronic (9) Lung transplant status, bilateral Code(s): Z94.2 - LUNG TRANSPLANT STATUS Status: Chronic (10) Diabetes mellitus type 2 in nonobese Code(s): E11.9 - TYPE 2 DIABETES MELLITUS WITHOUT COMPLICATIONS Status: Chronic (11) HFrEF (heart failure with reduced ejection fraction) Code(s): I50.20 - UNSPECIFIED SYSTOLIC (CONGESTIVE) HEART FAILURE Status: Chronic (12) Coronary artery disease Code(s): I25.10 - ATHSCL HEART DISEASE OF [place] CORONARY ARTERY W/O ANG PCTRS Status: Chronic (13) HLD (hyperlipidemia) Code(s): E78.5 - HYPERLIPIDEMIA, UNSPECIFIED Status: Chronic Qualifiers: (14) Paroxysmal SVT (supraventricular tachycardia) Code(s): I47.1 - SUPRAVENTRICULAR TACHYCARDIA Status: Acute - Plan Plan: Acute metabolic encephalopathy 2/2 severe hypoglycemia - Most likely 2/2 hypoglycemia as blood glucose of 24 per EMS when found at home. However, given immunocompromised state & reported productive could, could be underlying infection contributing to this as well. - BG still ranging from 140-180s over course of day yesterday. Will increase accuchecks to Q6H and continue mild SSI w/ SABINA lantus to keep BG between 140- 180 while inpatient. Hypoglycemia protocol in place as well. Acute on chronic hypoxic respiratory failure - Most likely 2/2 problem #1 w/ associated seizure-like activity. Unable to wean from ventilatory support yesterday. 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 Most likely as to why his respiratory status is so compromised; however, will continue SABINA IV steroids, Duonebs, & abx & attempt to wean ventilatory support & sedation as tolerated by patient. - Sputum Cx grew moderate amount of normal respiratory barrett. Blood & urine Cxs negative. - Goals of care discussed with some family on 3/4 AM as to whether or not patient would desire a tracheostomy again should it come to this. Family expressed he did not but stated she would like to discuss with patient's siblings as well tomorrow. PC at meeting & on board as well. Will also touch base with transplant team over course of weekend for recs. - Pulmonology, Dr. Judge, on board, appreciate recommendations. SVT - Patient's HR ranging from 110s-170s overnight despite increasing metoprolol to home dose. Will consider starting on QD digoxin. - Cardiology, Dr. Sutton, on board. Appreciate recs. Metabolic alkalosis - Bicarb 32 this AM on BMP & + balance of 1058mL. Will give 500mg IV diamox & continue to trend w/ QD BMPs. Hypomagnesemia - Mg low at 1.8 this AM. s/p 400mg Mg oxide per electrolyte protocol. Hypophosphatemia - Level pending for this AM. Will replace per protocol. Right shoulder soft tissue infection - Right should notable for sinus tract w/ purulent discharge on admission. Will consider stopping Empiric abx with Vancomycin after 7 days of tx as final Cx grew a moderate amount of skin barrett. - WC on board. Seizure-like activity, resolved - Most likely 2/2 severe hypoglycemia but need to r/o other potential causes. EEG did not show persistent or ongoing epileptiform activity but did show diffuse slowing c/w encephalopathic process per neuro. Brain MRI to be done once patient less agitated & able to remain still. Dr. Escobedo with neurology on board, appreciate recs. - Lorazepam prn & SABINA keppra BID for seizure activity. Will add valproate 500mg BID if keppra not adequate for seizure control per neuro. - Continue seizure precautions. Suspected CAP/COPD exacerbation - See plan for problem #2. Remains stable on mechanical ventilation. COPD s/p Lung Transplantation - Will continue anti-rejection meds per pulm recs. - Tacrolimus level within therapeutic window post-transplant per guidelines at 6.7. Repeat level pending for 09/26. HFrEF - EF 40-45% per last cards eval. Repeat ECHO pending. Continue home metoprolol as tolerated by patient. CAD - Multi-vessel disease found on cath per cards. Continue ASA & statin. IDDM II, steroid induced - Will continue mild SSI w/ 10U lantus SABINA QAM as patient has required 8U SSI yesterday w/ SABINA lantus. Goal is to keep BG between 140-180 while inpatient. Hypertension - Will resume home meds as tolerated by patient. Anxiety and depression - Will resume home meds per tube as tolerated by patient. GERD - Famotidine BID until tolerating PO. Hypokalemia, resolved - K 3.6 this AM. Disposition/LOS: Remains guarded. Will continue close monitoring in the CCU. VTE: Lovenox GI ppx: Pepcid Abx: Levaquin, metronidazole, & vancomycin (day #6) IVFs: KVO Drains/lines/tubes: ET & NG tubes, hernandez & L AC peripheral lines started/placed on 09/20/19 (day #6), B/L hand lines placed on 09/22/19 (day #4) Code: Full PCP: TOÑA Olea Addendum - Attending - Attending Attestation Date/Time: 09/25/19 1005 I personally evaluated the patient and discussed the management with Dr. Leonard. I agree with the History, Examination, Assessment and Plan documented above with any addition or exceptions noted below. 59yo M with hx of COPD s/p double lung transplant who presented with profound hypoglycemia and required intubation. Patient currently intubated/sedated. On broad spectrum abx, for aspiration pneumonitis. Will attempt extubation later today per pulm after CPAP trial and transition from propofol to precedex for sedation. Will try to contact patient's lung specialist at [facility] in [place] to get more information as patient had been off of his rejection meds lately. Wound with sinus tracting on right back - clean/dry with negative cultures - discontinue vanc. Will need to have discussion with family for goals of care.
[2019-09-25 06:49] LABS: Phosphorus 1.9 mg/dL (2.3-4.7)
[2019-09-25] MEDS: Amlodipine 5 MG TAB PER TUBE SCH (08:46)
[2019-09-25] MEDS: Enoxaparin Sodium 40 MG/0.4 ML SYRINGE SC SCH (08:46)
[2019-09-25] MEDS: Famotidine/PF 20 mg/2ml Vial SLOW IVP SCH ×2 (08:47→21:15)
[2019-09-25] MEDS: Aspirin Chewable 81 MG TAB PER TUBE SCH (08:47)
[2019-09-25] MEDS: Tacrolimus 0.5 MG CAP PER TUBE SCH (08:49)
[2019-09-25] MEDS ORDERED: acetaZOLAMIDE Sodium 500 mg Vial IVP SCH (09:00)
[2019-09-25] MEDS ORDERED: Insulin Glargine 10 UNITS in Pre-Filled Syringe 1 EACH SC SCH (09:00)
[2019-09-25] MEDS: Nystatin 500,000 UNITS/5 ML UDCUP SSW SCH ×4 (09:38→21:15)
[2019-09-25] MEDS: VANCOMYCIN IVPB SCH (10:10)
--- NOTE | 2019-09-25 17:54 | PRG ---
DATE OF SERVICE: 09/25/2019 SERVICE: Pulmonary Medicine. INTERVAL HISTORY: The patient is doing fine from respiratory standpoint. He has no ability to register any complaints. With any sedation holiday and is not on much currently, he is not following any commands. He does have purposeful activity, but does not attend with any weaning in the sedation. Otherwise, there has been no interval change to his condition. We talked to his transplant center today. They are suggesting that because he interrupted his rejection medication previously, he has chronic disease that is going to progress regardless of what we do. As such, they are suggesting that it would be reasonable to transition over to comfort care. They are suggesting that since his last discharge from the hospital in June, he has basically been dependent on BiPAP. PHYSICAL EXAMINATION: VITAL SIGNS: Afebrile currently with a T-max of 100.2, pulse 152, blood pressure 159/82, respirations 24, saturations 94%, currently on 27% FiO2 and a PEEP of 5. GENERAL: The patient is intubated and sedated. HEENT: Normocephalic and atraumatic. Sclerae white. Conjunctivae pink. Oral mucosa is moist without lesions. LUNGS: Decent air entry. There is a prolonged expiratory phase. Rhonchi and wheezing are present, but no crackles. HEART: Normal rate and regular. ABDOMEN: Soft, nontender, nondistended. Bowel sounds are positive. MUSCULOSKELETAL: No cyanosis or clubbing. There is no pitting in bilateral lower extremities. NEUROLOGIC: Grossly nonfocal. He does not attend, he does not follow commands that being said, he does move all 4 extremities with some degree of purpose. LABORATORY DATA: Basic metabolic profile and liver function studies are unremarkable. Potassium, phosphorus, and magnesium have all improved and around the upper limits of normal. All culture results remain negative to date. IMAGING: Echocardiogram demonstrates normal ejection fraction. He had 1 to 2 out of 3 diastolic dysfunction. Moderate mitral regurgitation is also present. ASSESSMENT: 1. Acute on chronic hypoxic respiratory failure. 2. Chronic obstructive pulmonary disease with acute exacerbation. 3. Bronchiolitis obliterans, suspected. 4. Medical noncompliance with anti-rejection lung medications. 5. Metabolic encephalopathy secondary to hypoglycemia with possible hypoglycemic injury. 6. Seizure on presentation, likely secondary to hypoglycemia. DISCUSSION AND PLAN: I give the patient through the weekend. If he fails to make neurologic recovery, we will talk to the family about transitioning over to comfort care only unless they feel that this would be appropriate sooner. Pulmonary/Critical Care will continue to follow along while the patient remains in this location. Cardiology is working on his cardiac dysrhythmias. Small adjustments have been made to the ventilator in order to improve comfort and minimize dyssynchrony. CRITICAL CARE TIME: 30 minutes. Job ID: [id number]
[2019-09-25 19:37] LABS: Tacrolimus 1.7 ng/mL (2.0-20.0)
[2019-09-25] MEDS: Atorvastatin Calcium 40 MG TAB PER TUBE SCH (21:15)
[2019-09-26] MEDS: methylPREDNISolone Sod Succ 40 MG VIAL IVP SCH ×5 (01:05→23:14)
[2019-09-26 04:13] LABS: ALT (SGPT) 38 U/L (8-55); AST (SGOT) 29 U/L (5-34); Albumin 3.1 g/dL (3.5-5.0); Alkaline Phosphatase 102 U/L (40-110); Anion Gap 13 mmol/L (10-20); BUN (Urea Nitrogen) 16 mg/dL (8.4-25.7); Bilirubin, Total 0.4 mg/dL (0.2-1.2); Calc. Creatinine Clearance 90 mL/min (70-130); Calcium 8.5 mg/dL (7.8-10.44); Carbon Dioxide 26 mmol/L (22-29); Chloride 103 mmol/L (98-107); Estimated GFR-MDRD Greater than 90; Globulin 2.7 g/dL (2.4-3.5); Glucose 191 mg/dL (70-105); Potassium 3.7 mmol/L (3.5-5.1); Protein, Total 5.8 g/dL (6.0-8.3); Sodium 138 mmol/L (136-145)
[2019-09-26] MEDS: Metoprolol Tartrate 50 MG TAB PER TUBE SCH ×2 (05:14→17:02)
[2019-09-26] MEDS: metroNIDAZOLE 500 MG in Premix Bag 1 BAG IVPB SCH ×3 (05:14→20:40)
[2019-09-26] MEDS: HumaLOG 300 UNITS/3 ML VIAL SC PRN ×2 (05:33→18:29)
--- NOTE | 2019-09-26 06:26 | PDOC.FM ---
- Subjective Subjective: NAEO. Patient remains intubated & sedated. However, even with sedation vacation no purposeful movements and not following commands. Per transplant team patient has essentially gone into full allograft rejection and is dependent on Bipap at home. Reported best option would be to transition to comfort care as his lungs will continue worsen over time and he is no longer a transplant candidate 2/2 noncompliance. Family meeting this AM to discuss goals/plans for care. - Objective MAR Reviewed: Yes Vital Signs & Weight: Vital Signs (12 hours) Temp Pulse Resp BP Pulse Ox 09/26/19 04:00 98.7 F 22 H 09/26/19 02:28 116 H 141/92 H 09/26/19 02:00 22 H 09/26/19 00:59 107 H 30 H 100 09/26/19 00:00 97.8 F 26 H 09/25/19 23:08 94 98/60 09/25/19 22:00 25 H 09/25/19 20:00 98.7 F 25 H 97 09/25/19 18:43 93 87/66 L Weight Admit Weight 58.06 kg Weight 57.8 kg Most Recent Monitor Data Heart Rate from ECG 167 NIBP 146/77 NIBP BP-Mean 100 Respiration from ECG 23 SpO2 100 I&O: 09/24/19 09/25/19 09/26/19 06:59 06:59 06:59 Intake Total 2493.7 2858 2072 Output Total 3733 1800 2140 Balance -1239.3 1058 -68 Result Diagrams: 09/24/19 04:25 09/26/19 03:22 Phys Exam - Physical Examination Constitutional: NAD intubated & sedated HEENT: moist MMs Neck: supple, full ROM Respiratory: no wheezing rhonchi on inspiration heard throughout Cardiovascular: RRR, no significant murmur Gastrointestinal: soft, non-tender, no distention, positive bowel sounds Musculoskeletal: no edema, pulses present Neurological: moves all 4 limbs not following commands or responsive to painful stimuli Skin: no rash, normal turgor, cap refill <2 seconds Dx/Plan (1) GERD (gastroesophageal reflux disease) Code(s): K21.9 - GASTRO-ESOPHAGEAL REFLUX DISEASE WITHOUT ESOPHAGITIS Status: Chronic (2) Altered mental state Code(s): R41.82 - ALTERED MENTAL STATUS, UNSPECIFIED Status: Acute (3) Hypoglycemia Code(s): E16.2 - HYPOGLYCEMIA, UNSPECIFIED Status: Resolved (4) Seizure Code(s): R56.9 - UNSPECIFIED CONVULSIONS Status: Resolved (5) Acute on chronic respiratory failure with hypoxia and hypercapnia Code(s): J96.21 - ACUTE AND CHRONIC RESPIRATORY FAILURE WITH HYPOXIA; J96.22 - ACUTE AND CHRONIC RESPIRATORY FAILURE WITH HYPERCAPNIA Status: Acute (6) Anxiety and depression Status: Chronic (7) HTN (hypertension) Code(s): I10 - ESSENTIAL (PRIMARY) HYPERTENSION Status: Chronic Qualifiers: (8) COPD (chronic obstructive pulmonary disease) Status: Chronic (9) Lung transplant status, bilateral Code(s): Z94.2 - LUNG TRANSPLANT STATUS Status: Chronic (10) Diabetes mellitus type 2 in nonobese Code(s): E11.9 - TYPE 2 DIABETES MELLITUS WITHOUT COMPLICATIONS Status: Chronic (11) HFrEF (heart failure with reduced ejection fraction) Code(s): I50.20 - UNSPECIFIED SYSTOLIC (CONGESTIVE) HEART FAILURE Status: Chronic (12) Coronary artery disease Code(s): I25.10 - ATHSCL HEART DISEASE OF [place] CORONARY ARTERY W/O ANG PCTRS Status: Chronic (13) HLD (hyperlipidemia) Code(s): E78.5 - HYPERLIPIDEMIA, UNSPECIFIED Status: Chronic Qualifiers: (14) Paroxysmal SVT (supraventricular tachycardia) Code(s): I47.1 - SUPRAVENTRICULAR TACHYCARDIA Status: Acute - Plan Plan: Acute metabolic encephalopathy 2/2 severe hypoglycemia - Most likely 2/2 hypoglycemia as blood glucose of 24 per EMS when found at home. However, given immunocompromised state & reported productive could, could be underlying infection contributing to this as well. - BG still ranging from 140-180s over course of day yesterday. Will increase accuchecks to Q6H and continue mild SSI w/ SABINA lantus to keep BG between 140- 180 while inpatient. Hypoglycemia protocol in place as well. Acute on chronic hypoxic respiratory failure - Most likely 2/2 problem #1 w/ associated seizure-like activity. Unable to wean from ventilatory support yesterday. 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 Most likely as to why his respiratory status is so compromised; however, will continue SABINA IV steroids, Duonebs, & abx & attempt to wean ventilatory support & sedation as tolerated by patient. - Sputum Cx grew moderate amount of normal respiratory barrett. Blood & urine Cxs negative. - Goals of care discussed with some family on 3/4 AM as to whether or not patient would desire a tracheostomy again should it come to this. Family expressed he did not but stated she would like to discuss with patient's siblings as well tomorrow. PC at meeting & on board as well. Transplant team recommended transitioning to comfort care. Meeting with family today to discuss goals/plans of care. - Pulmonology, Dr. Judge, on board, appreciate recommendations. SVT - Patient's HR ranging from 110s-120s overnight despite increasing metoprolol to home dose. Will consider starting on QD digoxin today. - Cardiology, Dr. Sutton, on board. Appreciate recs. Metabolic alkalosis, resolved - Will continue to monitor. Hypomagnesemia - level pending for this AM. Will replace PRN per electrolyte protocol. Hypophosphatemia - 2.0 this AM. Will replace per protocol. Right shoulder soft tissue infection - Right should notable for sinus tract w/ purulent discharge on admission. s/p IV vancomycin x 5 days. - WC on board. Seizure-like activity, resolved - Most likely 2/2 severe hypoglycemia but need to r/o other potential causes. EEG did not show persistent or ongoing epileptiform activity but did show diffuse slowing c/w encephalopathic process per neuro. Brain MRI to be done once patient less agitated & able to remain still. Dr. Escobedo with neurology on board, appreciate recs. - Lorazepam prn & SABINA keppra BID for seizure activity. Will add valproate 500mg BID if keppra not adequate for seizure control per neuro. - Continue seizure precautions. Suspected CAP/COPD exacerbation - See plan for problem #2. Remains stable on mechanical ventilation. COPD s/p Lung Transplantation - Will continue anti-rejection meds per pulm recs. - Tacrolimus level within therapeutic window post-transplant per guidelines at 6.7 on admission but level drawn on 09/22 was low at 1.7. Will adjust dosing PRN pending family meeting decision today. HFrEF - EF 50-55% per ECHO. Continue home metoprolol. CAD - Multi-vessel disease found on cath per cards. Continue ASA & statin. IDDM II, steroid induced - Will continue mild SSI w/ 13U lantus SABINA QAM as patient has required 6U SSI yesterday w/ SABINA lantus. Goal is to keep BG between 140-180 while inpatient. Hypertension - Will continue home meds & titrate PRN Anxiety and depression - Will resume home meds per tube as tolerated by patient. GERD - Famotidine BID until tolerating PO. Hypokalemia, resolved - K 3.7 this AM. Disposition/LOS: Remains guarded. Will continue close monitoring in the CCU. VTE: Lovenox GI ppx: Pepcid Abx: Levaquin & metronidazole (day #6) IVFs: KVO Drains/lines/tubes: ET & NG tubes, hernandez & L AC peripheral lines started/placed on 09/20/19 (day #7), B/L hand lines placed on 09/22/19 (day #4) Code: Full PCP: TOÑA Olea Addendum - Attending - Attending Attestation Date/Time: 09/26/19 3561 I personally evaluated the patient and discussed the management with Dr. Leonard. I agree with the History, Examination, Assessment and Plan documented above with any addition or exceptions noted below. Patient continues on ventilator. Some spontaneous ventilation but no purposeful movement despite weaning of sedation. Family meeting today to discuss goals of care. He is in transplant rejection due to his med noncompliance. Pulm on board. Further mgmt pending family meeting today.
[2019-09-26] MEDS: Vancomycin HCl 1 GM in Premix Bag 1 BAG IVPB SCH (08:25)
[2019-09-26] MEDS: Famotidine/PF 20 mg/2ml Vial SLOW IVP SCH ×2 (08:41→19:59)
[2019-09-26] MEDS: Amlodipine 5 MG TAB PER TUBE SCH (08:44)
[2019-09-26] MEDS: Aspirin Chewable 81 MG TAB PER TUBE SCH (08:44)
[2019-09-26] MEDS: Enoxaparin Sodium 40 MG/0.4 ML SYRINGE SC SCH (08:44)
[2019-09-26] MEDS: Tacrolimus 0.5 MG CAP PER TUBE SCH (08:45)
[2019-09-26] MEDS: Nystatin 500,000 UNITS/5 ML UDCUP SSW SCH ×4 (08:49→19:59)
--- NOTE | 2019-09-26 08:53 | PRG ---
DATE OF SERVICE: 09/26/2019 SUBJECTIVE: A 59-year-old gentleman, who remains in the ICU, intubated on the vent. The patient has been in the hospital since 09/19. He was seizing on admission and apparently was felt to be hypoglycemic. He is only on Precedex, pretty much unresponsive on the vent. OBJECTIVE: VITAL SIGNS: Pulse 84, respiratory rate 20, sats are 100%, blood pressure 120/78. CHEST: Decreased breath sounds. No wheezing. CARDIAC: Normal S1 and S2. No gallops. ABDOMEN: Soft. NEUROLOGIC: Sedated on Precedex. LABORATORY DATA: Glucose 185. IMAGING: His last chest x-ray was normal. IMPRESSION: 1. Hypoglycemia-associated encephalopathy. 2. Respiratory failure, chronic obstructive pulmonary disease, status post lung transplant. It is unclear what the plan is. PLAN: Plan is to meet with primary care physician. I will minimize sedation to see whether he is any more responsive. Clearly, his prognosis is poor. Pulmonary Critical Care is going to follow while in the ICU. He is on several different medication for his lung transplant associated anti rejection. He is also on steroids, neb treatments, supportive care. Discussed with primary care physician. One-half hour of critical time. Job ID: [id number]
[2019-09-26] MEDS ORDERED: Insulin Glargine 13 UNITS in Pre-Filled Syringe 1 EACH SC SCH (09:00)
[2019-09-26] MEDS: Lorazepam 2 MG/ML VIAL SLOW IVP PRN (14:04)
--- NOTE | 2019-09-26 15:50 | PDOC.CPN ---
- Subjective Date: 09/26/19 Time: 15:48 Interval history: Sedated intubated. - Review of Systems ROS unobtainable: due to endotracheal tube - Objective Allergies/Adverse Reactions: Allergies Allergy/AdvReac Type Severity Reaction Status Date / Time amoxicillin Allergy Verified 07/15/16 23:26 Visit Medications: Current Medications Acetaminophen (Tylenol) 650 mg MT Q4H PRN PRN Reason: Headache/Fever/Mild Pain (1-3) Last Admin: 09/25/19 13:51 Dose: 650 mg Albuterol/Ipratropium (Duoneb) 3 ml NEB E3QT-EU [facility] Last Admin: 09/26/19 13:23 Dose: 3 ml Amlodipine Besylate (Norvasc) 5 mg PER TUBE DAILY [facility] Last Admin: 09/26/19 08:44 Dose: 5 mg Lipase/Protease/[place]ylase ([place] [address]) 1 cap FS .PER PROTOCOL PRN PRN Reason: TUBE OCCLUSION PROTOCOL Aspirin (Aspirin Chewable) 81 mg PER TUBE DAILY [facility] Last Admin: 09/26/19 08:44 Dose: 81 mg Atorvastatin Calcium (Lipitor) 40 mg PER TUBE HS [facility] Last Admin: 09/25/19 21:15 Dose: 40 mg Dextrose/Water (Dextrose 50%) 25 gm SLOW IVP PRN PRN PRN Reason: Hypoglycemia Diphenhydramine HCl (Benadryl) 50 mg IVP Q6H PRN PRN Reason: Agitation Last Admin: 09/22/19 02:02 Dose: 50 mg Enoxaparin Sodium (Lovenox) 40 mg SC 0900 [facility] Last Admin: 09/26/19 08:44 Dose: 40 mg Famotidine (Pepcid) 20 mg SLOW IVP Q12HR [facility] Last Admin: 09/26/19 08:41 Dose: 20 mg Glucagon (Glucagon) 1 mg IM PRN PRN PRN Reason: Hypoglycemia Levofloxacin 750 mg/ Device 150 mls @ 100 mls/hr IVPB Q24HR [facility] Last Admin: 09/25/19 15:00 Dose: 150 mls Potassium Chloride 40 meq/ (Sodium Chloride) 270 mls @ 135 mls/hr IVPB ASDIR PRN PRN Reason: FOR SERUM K+ 2.5 - 3.5 Last Admin: 09/22/19 08:19 Dose: 270 mls Magnesium Sulfate 1 gm/ Sodium (Chloride) 102 mls @ 102 mls/hr IV PRN PRN PRN Reason: MAG LEVEL 1.4 - 2.0 Magnesium Sulfate 2 gm/ Device 50 mls @ 50 mls/hr IVPB ASDIR PRN PRN Reason: MAGNESIUM < 1.4 Potassium Phosphate 9 mmol/ (Sodium Chloride) 103 mls @ 25.75 mls/hr IVPB ASDIR PRN PRN Reason: Phosphate 1.0-1.8 Last Admin: 09/23/19 03:04 Dose: 103 mls Potassium Phosphate 12 mmol/ (Sodium Chloride) 254 mls @ 63.5 mls/hr IV ASDIR PRN PRN Reason: Serum phosphate 0.5-0.9 Potassium Phosphate 15 mmol/ (Sodium Chloride) 255 mls @ 63.75 mls/hr IV ASDIR PRN PRN Reason: Serum Phos < 0.5 Fentanyl Citrate 2,000 mcg/ (Sodium Chloride) 100 mls @ 0 mls/hr IV INF SABINA; Protocol Stop: 10/20/19 12:28 Fentanyl Citrate (Fentanyl Bolus) 250 mls @ 0 mls/hr IVPB PRN PRN PRN Reason: Breakthrough pain/agitation Stop: 10/20/19 12:28 Metronidazole 500 mg/ Device 100 mls @ 100 mls/hr IVPB Q8HR [facility] Last Admin: 09/26/19 14:05 Dose: 100 mls Levetiracetam 500 mg/ Device 100 mls @ 200 mls/hr IVPB BID [facility] Last Admin: 09/26/19 08:41 Dose: 100 mls Dextrose/Water (D5w) 1,000 mls @ 0 mls/hr IV .Q0M PRN PRN Reason: Hypoglycemia Dexmedetomidine HCl 200 mcg/ (Sodium Chloride) 50 mls @ 0 mls/hr IVPB INF SABINA; Protocol Last Admin: 09/26/19 08:40 Dose: 50 mls Insulin Glargine 13 units/ (Miscellaneous Medication) 0.13 mls @ 1 mls/hr SC QAM [facility] Last Admin: 09/26/19 08:46 Dose: 0.13 mls Insulin Human Lispro (Humalog) 0 units SC .MILD SLIDING SCALE PRN PRN Reason: Mild Correctional Scale Last Admin: 09/26/19 05:33 Dose: 2 unit Insulin Human Lispro (Humalog) 0 units SC .BEDTIME SLIDING SC PRN PRN Reason: Bedtime Correctional Scale Last Admin: 09/24/19 04:18 Dose: 2 unit Lorazepam (Ativan) 2 mg SLOW IVP Q6H PRN PRN Reason: Seizures Lorazepam (Ativan) 2 mg SLOW IVP Q1H PRN PRN Reason: Breakthrough agitation Stop: 10/20/19 12:28 Last Admin: 09/26/19 14:04 Dose: 2 mg Magnesium Oxide (Magnesium Oxide) 400 mg PO BIDPRN PRN PRN Reason: FOR SERUM MAG 1.4 - 2.0 Last Admin: 09/25/19 05:18 Dose: 400 mg Magnesium Oxide (Magnesium Oxide) 800 mg PO PRN PRN PRN Reason: FOR SERUM MAG < 1.4 Methylprednisolone Sodium Succinate (Solu-Medrol) 40 mg IVP Q6HR [facility] Last Admin: 09/26/19 14:05 Dose: 40 mg Metoprolol Tartrate (Lopressor) 100 mg PER TUBE 0600,1800 [facility] Last Admin: 09/26/19 05:14 Dose: 100 mg Mineral Oil/White Petrolatum (Systane Nighttime Eye Ointment) 0 gm EA EYE PRN PRN PRN Reason: Dry Eyes Miscellaneous Medication (Ccu Electrolyte Replacement) 1 each IVPB ASDIR SABINA Miscellaneous Medication (Ventilator Sedation Protocol) 1 each FS ASDIR SABINA Miscellaneous Medication (Phos-Nak) 1 pkt PO TIDPRN PRN PRN Reason: FOR PHOS LEVEL 1.0 - 1.8 Last Admin: 09/21/19 10:16 Dose: 1 pkt Miscellaneous Medication (Phos-Nak) 2 pkt PO TIDPRN PRN PRN Reason: FOR PHOS LEVEL 0.5 - 1.0 Morphine Sulfate (Morphine) 2 mg SLOW IVP Q1H PRN PRN Reason: BREAKTHROUGH PAIN/Agitation Stop: 10/20/19 12:28 Last Admin: 09/23/19 10:06 Dose: 2 mg Ccu Electrolyte (Replacement Protocol) 0 each FS PRN PRN PRN Reason: FOR ELECTROLYTE REPLACEMENT Discontinue Previous Narcotic Pain Medications And Benzodiazepines 1 each FS .ONE [facility] Stop: 10/20/19 12:28 Nystatin (Mycostatin) 500,000 units SSW QID [facility] Last Admin: 09/26/19 14:04 Dose: 500,000 units Ondansetron HCl (Zofran) 4 mg IVP Q6H PRN PRN Reason: Nausea/Vomiting Potassium Chloride (K-Dur) 40 meq PO ASDIR PRN PRN Reason: FOR SERUM K+ 2.5 - 3.5 Potassium Chloride (Klor-Con) 40 meq PER TUBE ASDIR PRN PRN Reason: FOR SERUM K+ 2.5-3.5 Propofol (Diprivan) 1,000 mg IV INF PRN; Protocol PRN Reason: TO ACHIEVE GOAL RASS Stop: 10/20/19 12:28 Last Admin: 09/24/19 21:13 Dose: 1,000 mg Propofol (Diprivan Bolus) 20 mg IV Q5MIN PRN PRN Reason: BREAKTHROUGH AGITATION Stop: 10/20/19 12:28 Sodium Bicarbonate (Bicarbonate, Sodium) 650 mg PER TUBE .PER PROTOCOL PRN PRN Reason: ENTERAL TUBE OCCLUSION Sodium Chloride (Flush - Normal Saline) 10 ml IVF Q12HR [facility] Last Admin: 09/26/19 08:45 Dose: 10 ml Sodium Chloride (Flush - Normal Saline) 10 ml IVF PRN PRN PRN Reason: Saline Flush Tacrolimus (Prograf) 0.5 mg PER TUBE QAM [facility] Last Admin: 09/26/19 08:45 Dose: 0.5 mg Valganciclovir (Valcyte) 450 mg PER TUBE BID [facility] Last Admin: 09/26/19 08:45 Dose: 450 mg Vital Signs & Weight: Vital Signs Temp Pulse Resp BP Pulse Ox 09/26/19 14:00 26 H 09/26/19 13:25 96 107/67 09/26/19 13:23 97 26 H 100 09/26/19 12:00 98.7 F 27 H 09/26/19 10:58 86 108/60 09/26/19 10:00 23 H 09/26/19 08:00 98.5 F 22 H 100 09/26/19 07:04 91 09/26/19 07:03 84 23 H 100 09/26/19 06:00 20 09/26/19 04:00 98.7 F 22 H Admit Weight 128 lb Weight 127 lb 6.835 oz - Physical Exam General: other (S/I) HEENT: normocephaly Neck: supple neck Cardiac: no murmur Lungs: normal breath sounds Neuro: no lateralizing findings Abdomen: active bowel sounds Extremities: no edema Skin: clear Musculoskeletal: no pain - Labs Result Diagrams: 09/24/19 04:25 09/26/19 03:22 Troponin/CKMB Troponin I 0.090 ng/mL (< 0.028) H 09/23/19 04:36 - Telemetry Sinus rhythms and dysrhythmias: sinus tachycardia Supraventricular conduction: other (Atrial tachycardia) - Assessment/Plan Assessment/Plan: 1. Atrial tachycardia. 2. S/P bilateral lung transplant. 3. Normal LV function at 50-55% PLAN: - Continue max dose metoprolol If persists may need EP.
[2019-09-26] MEDS: Atorvastatin Calcium 40 MG TAB PER TUBE SCH (19:59)
[2019-09-27] MEDS: methylPREDNISolone Sod Succ 40 MG VIAL IVP SCH ×3 (04:59→17:10)
[2019-09-27] MEDS: Metoprolol Tartrate 50 MG TAB PER TUBE SCH ×2 (04:59→17:10)
[2019-09-27] MEDS: metroNIDAZOLE 500 MG in Premix Bag 1 BAG IVPB SCH ×3 (04:59→22:02)
[2019-09-27 05:00] LABS: ALT (SGPT) 41 U/L (8-55); AST (SGOT) 28 U/L (5-34); Albumin 3.1 g/dL (3.5-5.0); Alkaline Phosphatase 128 U/L (40-110); Anion Gap 12 mmol/L (10-20); BUN (Urea Nitrogen) 19 mg/dL (8.4-25.7); Bilirubin, Total 0.3 mg/dL (0.2-1.2); Calc. Creatinine Clearance 106 mL/min (70-130); Calcium 8.3 mg/dL (7.8-10.44); Carbon Dioxide 27 mmol/L (22-29); Chloride 102 mmol/L (98-107); Estimated GFR-MDRD Greater than 90; Globulin 2.4 g/dL (2.4-3.5); Glucose 210 mg/dL (70-105); Potassium 3.9 mmol/L (3.5-5.1); Protein, Total 5.5 g/dL (6.0-8.3); Sodium 137 mmol/L (136-145)
[2019-09-27 05:03] LABS: Phosphorus 1.8 mg/dL (2.3-4.7)
[2019-09-27] MEDS ORDERED: Tacrolimus 0.5 MG CAP PER TUBE SCH (06:01)
[2019-09-27] MEDS: Potassium Phosphate 9 MMOL in Sodium Chloride 0.9% 100 ML IVPB PRN (06:05)
[2019-09-27] MEDS: HumaLOG 300 UNITS/3 ML VIAL SC PRN ×2 (06:11→22:02)
--- NOTE | 2019-09-27 06:15 | PDOC.FM ---
- Subjective Subjective: Patient remained tachycardic overnight but otherwise no events. Remains intubated and minimally responsive despite significant decreases in his sedation. - Objective MAR Reviewed: Yes Vital Signs & Weight: Vital Signs (12 hours) Temp Pulse Resp BP Pulse Ox 09/27/19 04:00 98.5 F 25 H 09/27/19 03:00 23 H 09/27/19 01:54 113 H 134/81 09/27/19 00:42 91 25 H 100 09/27/19 00:00 98.7 F 20 09/26/19 22:40 92 116/72 09/26/19 22:00 19 09/26/19 20:00 98.5 F 26 H 100 09/26/19 18:09 88 104/79 09/26/19 18:00 24 H Weight Admit Weight 58.06 kg Weight 59 kg Most Recent Monitor Data Heart Rate from ECG 116 NIBP 122/75 NIBP BP-Mean 90 Respiration from ECG 18 SpO2 100 I&O: 09/25/19 09/26/19 09/27/19 06:59 06:59 07:59 Intake Total 2858 2763 2071.3 Output Total 1800 2180 926 Balance 2841 063 4316.3 Result Diagrams: 09/24/19 04:25 09/27/19 04:01 Phys Exam - Physical Examination Constitutional: NAD intubated and minimally sedated HEENT: moist MMs, sclera anicteric Neck: supple, full ROM diffuse rhonchi on inspiration noted; no wheezing Cardiovascular: no significant murmur tachycardic but regular rhythm Gastrointestinal: soft, no distention, positive bowel sounds Musculoskeletal: no edema, pulses present Neurological: moves all 4 limbs non-responsive to verbal or painful stimuli w/ minimal sedation Skin: no rash, normal turgor, cap refill <2 seconds Dx/Plan (1) GERD (gastroesophageal reflux disease) Code(s): K21.9 - GASTRO-ESOPHAGEAL REFLUX DISEASE WITHOUT ESOPHAGITIS Status: Chronic (2) Altered mental state Code(s): R41.82 - ALTERED MENTAL STATUS, UNSPECIFIED Status: Acute (3) Hypoglycemia Code(s): E16.2 - HYPOGLYCEMIA, UNSPECIFIED Status: Resolved (4) Seizure Code(s): R56.9 - UNSPECIFIED CONVULSIONS Status: Resolved (5) Acute on chronic respiratory failure with hypoxia and hypercapnia Code(s): J96.21 - ACUTE AND CHRONIC RESPIRATORY FAILURE WITH HYPOXIA; J96.22 - ACUTE AND CHRONIC RESPIRATORY FAILURE WITH HYPERCAPNIA Status: Acute (6) Anxiety and depression Status: Chronic (7) HTN (hypertension) Code(s): I10 - ESSENTIAL (PRIMARY) HYPERTENSION Status: Chronic Qualifiers: (8) COPD (chronic obstructive pulmonary disease) Status: Chronic (9) Lung transplant status, bilateral Code(s): Z94.2 - LUNG TRANSPLANT STATUS Status: Chronic (10) Diabetes mellitus type 2 in nonobese Code(s): E11.9 - TYPE 2 DIABETES MELLITUS WITHOUT COMPLICATIONS Status: Chronic (11) HFrEF (heart failure with reduced ejection fraction) Code(s): I50.20 - UNSPECIFIED SYSTOLIC (CONGESTIVE) HEART FAILURE Status: Chronic (12) Coronary artery disease Code(s): I25.10 - ATHSCL HEART DISEASE OF [place] CORONARY ARTERY W/O ANG PCTRS Status: Chronic (13) HLD (hyperlipidemia) Code(s): E78.5 - HYPERLIPIDEMIA, UNSPECIFIED Status: Chronic Qualifiers: (14) Paroxysmal SVT (supraventricular tachycardia) Code(s): I47.1 - SUPRAVENTRICULAR TACHYCARDIA Status: Acute - Plan Plan: Acute metabolic encephalopathy 2/2 severe hypoglycemia - Most likely 2/2 hypoglycemia as blood glucose of 24 per EMS when found at home. However, given immunocompromised state & reported productive could, could be underlying infection contributing to this as well. - BG still ranging from 140-180s over course of day yesterday. Will increase accuchecks to Q6H and continue mild SSI w/ SABINA lantus to keep BG between 140- 180 while inpatient. Hypoglycemia protocol in place as well. Acute on chronic hypoxic respiratory failure - Most likely 2/2 problem #1 w/ associated seizure-like activity. Unable to wean from ventilatory support yesterday. 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 Most likely as to why his respiratory status is so compromised; however, will continue SABINA IV steroids, Duonebs, & abx & attempt to wean ventilatory support & sedation as tolerated by patient. - Sputum Cx grew moderate amount of normal respiratory barrett. Blood & urine Cxs negative. Will consider stopping all abx today as s/p 7 days of IV abx for possible pneumonitis today vs. extending to at least a 10 day course. - Goals of care discussed with some family on 3/4 AM as to whether or not patient would desire a tracheostomy again should it come to this. Family expressed he did not but stated she would like to discuss with patient's siblings as well tomorrow. PC at meeting & on board as well. Transplant team recommended transitioning to comfort care. Meeting with family yesterday to discuss goals/plans of care but not yet ready to make a decision. Will reach out to again today regarding their decision. - Pulmonology, Dr. Judge, on board, appreciate recommendations. SVT - Patient's HR ranging from 110s-120s overnight again. Will consider starting on SABINA digoxin vs. diltiazem today. - Cardiology on board. Appreciate recs. Metabolic alkalosis, resolved - Will continue to monitor. Hypomagnesemia - level pending for this AM. Will replace PRN per electrolyte protocol. Hypophosphatemia - 1.8 this AM. Will replace per protocol. Right shoulder soft tissue infection - Right should notable for sinus tract w/ purulent discharge on admission. s/p IV vancomycin x 5 days. - WC on board. Seizure-like activity, resolved - Most likely 2/2 severe hypoglycemia but need to r/o other potential causes. EEG did not show persistent or ongoing epileptiform activity but did show diffuse slowing c/w encephalopathic process per neuro. Brain MRI to be done once patient less agitated & able to remain still. Dr. Escobedo with neurology on board, appreciate recs. - Lorazepam prn & SABINA keppra BID for seizure activity. Will add valproate 500mg BID if keppra not adequate for seizure control per neuro. - Continue seizure precautions. Suspected CAP/COPD exacerbation - See plan for problem #2. Remains stable on mechanical ventilation. COPD s/p Lung Transplantation - Will continue anti-rejection meds per pulm recs. - Tacrolimus level within therapeutic window post-transplant per guidelines at 6.7 on admission but level drawn on 09/22 was low at 1.7. Will adjust dosing PRN. HFpEF - EF 50-55% per ECHO. Continue home metoprolol. CAD - Multi-vessel disease found on cath per cards. Continue ASA & statin. IDDM II, steroid induced - Will continue mild SSI w/ 15U lantus SABINA QAM as patient has required 4U SSI yesterday w/ SABINA lantus. Goal is to keep BG between 140-180 while inpatient. Hypertension - Will continue home meds & titrate PRN. Anxiety and depression - Will continue to hold. GERD - Famotidine BID until tolerating PO. Hypokalemia, resolved Disposition/LOS: Remains guarded. Will continue close monitoring in the CCU pending family's decision on whether to proceed w/ trach vs. compassionate extubation w/ transition to hospice. VTE: Lovenox GI ppx: Pepcid Abx: Levaquin & metronidazole (day #8) IVFs: KVO Drains/lines/tubes: ET & NG tubes, hernandez & L AC peripheral lines started/placed on 09/20/19 (day #8), B/L hand lines placed on 09/22/19 (day #5) Code: Full PCP: TOÑA Olea Addendum - Attending - Attending Attestation Date/Time: 09/27/19 8335 I personally evaluated the patient and discussed the management with Dr. Leonard. I agree with the History, Examination, Assessment and Plan documented above with any addition or exceptions noted below.
[2019-09-27 07:38] LABS: Tacrolimus 1.5 ng/mL (2.0-20.0)
--- NOTE | 2019-09-27 09:17 | PRG ---
DATE OF SERVICE: 09/27/2019 SUBJECTIVE: Remains intubated in the vent on some Precedex. I am told when the medicine was stopped, he became encephalopathic, thrashing around, and moving all 4 extremities. OBJECTIVE: VITAL SIGNS: His temperature is 98, pulse is 93, respirations are 14, blood pressure is 122/75, saturations are 100%. NEUROLOGIC: Sedated. CHEST: Decreased breath sounds. Bilateral rhonchi. CARDIAC: Normal S1 and S2. No gallops. ABDOMEN: No masses. LABORATORY DATA: His lytes were ordered. His blood sugar is 210, albumin is 3.1. IMPRESSION: 1. Status post metabolic encephalopathy secondary to hypoglycemia. 2. Bilateral lung transplant on multiple anti-rejection medication. 3. Chronic obstructive pulmonary disease. 4. Encephalopathy. He is not weanable at this stage. Family to make decisions regarding on going care. In the meantime, Nutrition, PT, supportive care. One-half hour of critical time. Job ID: [id number]
[2019-09-27] MEDS: Enoxaparin Sodium 40 MG/0.4 ML SYRINGE SC SCH (09:18)
[2019-09-27] MEDS: Famotidine/PF 20 mg/2ml Vial SLOW IVP SCH ×2 (09:18→20:16)
[2019-09-27] MEDS: Amlodipine 5 MG TAB PER TUBE SCH (09:18)
[2019-09-27] MEDS: Aspirin Chewable 81 MG TAB PER TUBE SCH (09:18)
[2019-09-27] MEDS: Tacrolimus 0.5 MG CAP PER TUBE SCH ×2 (09:20→20:47)
[2019-09-27] MEDS: Insulin Glargine 15 UNITS in Pre-Filled Syringe 1 EACH SC SCH (10:24)
[2019-09-27] MEDS: Nystatin 500,000 UNITS/5 ML UDCUP SSW SCH ×4 (10:45→20:17)
--- NOTE | 2019-09-27 16:21 | PDOC.CPN ---
- Subjective Date: 09/27/19 Time: 16:18 Interval history: Remains sedated and intubated. - Review of Systems ROS unobtainable: due to endotracheal tube - Objective Allergies/Adverse Reactions: Allergies Allergy/AdvReac Type Severity Reaction Status Date / Time amoxicillin Allergy Verified 07/15/16 23:26 Visit Medications: Current Medications Acetaminophen (Tylenol) 650 mg MA Q4H PRN PRN Reason: Headache/Fever/Mild Pain (1-3) Last Admin: 09/25/19 13:51 Dose: 650 mg Albuterol/Ipratropium (Duoneb) 3 ml NEB [id number] [facility] Last Admin: 09/27/19 13:35 Dose: 3 ml Amlodipine Besylate (Norvasc) 5 mg PER TUBE DAILY [facility] Last Admin: 09/27/19 09:18 Dose: 5 mg Lipase/Protease/Amylase ([place] [id number]) 1 cap FS .PER PROTOCOL PRN PRN Reason: TUBE OCCLUSION PROTOCOL Aspirin (Aspirin Chewable) 81 mg PER TUBE DAILY [facility] Last Admin: 09/27/19 09:18 Dose: 81 mg Atorvastatin Calcium (Lipitor) 40 mg PER TUBE HS [facility] Last Admin: 09/26/19 19:59 Dose: 40 mg Dextrose/Water (Dextrose 50%) 25 gm SLOW IVP PRN PRN PRN Reason: Hypoglycemia Diphenhydramine HCl (Benadryl) 50 mg IVP Q6H PRN PRN Reason: Agitation Last Admin: 09/22/19 02:02 Dose: 50 mg Enoxaparin Sodium (Lovenox) 40 mg SC 0900 [facility] Last Admin: 09/27/19 09:18 Dose: 40 mg Famotidine (Pepcid) 20 mg SLOW IVP Q12HR [facility] Last Admin: 09/27/19 09:18 Dose: 20 mg Glucagon (Glucagon) 1 mg IM PRN PRN PRN Reason: Hypoglycemia Levofloxacin 750 mg/ Device 150 mls @ 100 mls/hr IVPB Q24HR [facility] Last Admin: 09/27/19 13:41 Dose: 150 mls Potassium Chloride 40 meq/ (Sodium Chloride) 270 mls @ 135 mls/hr IVPB ASDIR PRN PRN Reason: FOR SERUM K+ 2.5 - 3.5 Last Admin: 09/22/19 08:19 Dose: 270 mls Magnesium Sulfate 1 gm/ Sodium (Chloride) 102 mls @ 102 mls/hr IV PRN PRN PRN Reason: MAG LEVEL 1.4 - 2.0 Last Admin: 09/27/19 09:00 Dose: 102 mls Magnesium Sulfate 2 gm/ Device 50 mls @ 50 mls/hr IVPB ASDIR PRN PRN Reason: MAGNESIUM < 1.4 Potassium Phosphate 9 mmol/ (Sodium Chloride) 103 mls @ 25.75 mls/hr IVPB ASDIR PRN PRN Reason: Phosphate 1.0-1.8 Last Admin: 09/27/19 06:05 Dose: 103 mls Potassium Phosphate 12 mmol/ (Sodium Chloride) 254 mls @ 63.5 mls/hr IV ASDIR PRN PRN Reason: Serum phosphate 0.5-0.9 Potassium Phosphate 15 mmol/ (Sodium Chloride) 255 mls @ 63.75 mls/hr IV ASDIR PRN PRN Reason: Serum Phos < 0.5 Fentanyl Citrate 2,000 mcg/ (Sodium Chloride) 100 mls @ 0 mls/hr IV INF SABINA; Protocol Stop: 10/20/19 12:28 Fentanyl Citrate (Fentanyl Bolus) 250 mls @ 0 mls/hr IVPB PRN PRN PRN Reason: Breakthrough pain/agitation Stop: 10/20/19 12:28 Metronidazole 500 mg/ Device 100 mls @ 100 mls/hr IVPB Q8HR SABINA Last Admin: 09/27/19 15:09 Dose: 100 mls Levetiracetam 500 mg/ Device 100 mls @ 200 mls/hr IVPB BID SABINA Last Admin: 09/27/19 10:44 Dose: 100 mls Dextrose/Water (D5w) 1,000 mls @ 0 mls/hr IV .Q0M PRN PRN Reason: Hypoglycemia Dexmedetomidine HCl 200 mcg/ (Sodium Chloride) 50 mls @ 0 mls/hr IVPB INF SABINA; Protocol Last Admin: 09/27/19 10:18 Dose: 50 mls Insulin Glargine 15 units/ (Miscellaneous Medication) 0.15 mls @ 1 mls/hr SC QAM SABINA Last Admin: 09/27/19 10:24 Dose: 0.15 mls Amiodarone HCl 450 mg/Miscellaneous Medication 1 each/ Dextrose/Water 259 mls @ 0 mls/hr IVPB INF SABINA; Protocol Insulin Human Lispro (Humalog) 0 units SC .MILD SLIDING SCALE PRN PRN Reason: Mild Correctional Scale Last Admin: 09/27/19 06:11 Dose: 3 unit Insulin Human Lispro (Humalog) 0 units SC .BEDTIME SLIDING SC PRN PRN Reason: Bedtime Correctional Scale Last Admin: 09/24/19 04:18 Dose: 2 unit Lorazepam (Ativan) 2 mg SLOW IVP Q6H PRN PRN Reason: Seizures Lorazepam (Ativan) 2 mg SLOW IVP Q1H PRN PRN Reason: Breakthrough agitation Stop: 10/20/19 12:28 Last Admin: 09/26/19 14:04 Dose: 2 mg Magnesium Oxide (Magnesium Oxide) 400 mg PO BIDPRN PRN PRN Reason: FOR SERUM MAG 1.4 - 2.0 Last Admin: 09/25/19 05:18 Dose: 400 mg Magnesium Oxide (Magnesium Oxide) 800 mg PO PRN PRN PRN Reason: FOR SERUM MAG < 1.4 Methylprednisolone Sodium Succinate (Solu-Medrol) 40 mg IVP Q6HR [facility] Last Admin: 09/27/19 11:50 Dose: 40 mg Metoprolol Tartrate (Lopressor) 100 mg PER TUBE 0600,1800 [facility] Last Admin: 09/27/19 04:59 Dose: 100 mg Mineral Oil/White Petrolatum (Systane Nighttime Eye Ointment) 0 gm EA EYE PRN PRN PRN Reason: Dry Eyes Miscellaneous Medication (Ccu Electrolyte Replacement) 1 each IVPB ASDIR SABINA Miscellaneous Medication (Ventilator Sedation Protocol) 1 each FS ASDIR SABINA Miscellaneous Medication (Phos-Nak) 1 pkt PO TIDPRN PRN PRN Reason: FOR PHOS LEVEL 1.0 - 1.8 Last Admin: 09/21/19 10:16 Dose: 1 pkt Miscellaneous Medication (Phos-Nak) 2 pkt PO TIDPRN PRN PRN Reason: FOR PHOS LEVEL 0.5 - 1.0 Morphine Sulfate (Morphine) 2 mg SLOW IVP Q1H PRN PRN Reason: BREAKTHROUGH PAIN/Agitation Stop: 10/20/19 12:28 Last Admin: 09/23/19 10:06 Dose: 2 mg Ccu Electrolyte (Replacement Protocol) 0 each FS PRN PRN PRN Reason: FOR ELECTROLYTE REPLACEMENT Discontinue Previous Narcotic Pain Medications And Benzodiazepines 1 each FS .ONE [facility] Stop: 10/20/19 12:28 Nystatin (Mycostatin) 500,000 units SSW QID [facility] Last Admin: 09/27/19 13:30 Dose: 500,000 units Ondansetron HCl (Zofran) 4 mg IVP Q6H PRN PRN Reason: Nausea/Vomiting Potassium Chloride (K-Dur) 40 meq PO ASDIR PRN PRN Reason: FOR SERUM K+ 2.5 - 3.5 Potassium Chloride (Klor-Con) 40 meq PER TUBE ASDIR PRN PRN Reason: FOR SERUM K+ 2.5-3.5 Propofol (Diprivan) 1,000 mg IV INF PRN; Protocol PRN Reason: TO ACHIEVE GOAL RASS Stop: 10/20/19 12:28 Last Admin: 09/24/19 21:13 Dose: 1,000 mg Propofol (Diprivan Bolus) 20 mg IV Q5MIN PRN PRN Reason: BREAKTHROUGH AGITATION Stop: 10/20/19 12:28 Sodium Bicarbonate (Bicarbonate, Sodium) 650 mg PER TUBE .PER PROTOCOL PRN PRN Reason: ENTERAL TUBE OCCLUSION Sodium Chloride (Flush - Normal Saline) 10 ml IVF Q12HR [facility] Last Admin: 09/27/19 09:20 Dose: 10 ml Sodium Chloride (Flush - Normal Saline) 10 ml IVF PRN PRN PRN Reason: Saline Flush Tacrolimus (Prograf) 1.5 mg PER TUBE Q12HR [facility] Last Admin: 09/27/19 09:20 Dose: 1.5 mg Valganciclovir (Valcyte) 450 mg PER TUBE BID [facility] Last Admin: 09/27/19 09:20 Dose: 450 mg Vital Signs & Weight: Vital Signs Temp Pulse Resp BP Pulse Ox 09/27/19 14:00 23 H 09/27/19 13:36 106 H 143/87 H 09/27/19 13:35 106 H 15 100 09/27/19 12:00 98.5 F 22 H 09/27/19 10:21 87 129/80 09/27/19 10:00 18 09/27/19 09:18 98 146/95 H 09/27/19 08:00 98.4 F 20 100 09/27/19 07:10 95 14 100 09/27/19 06:00 22 H Admit Weight 128 lb Weight 130 lb 1.164 oz - Physical Exam General: other (S/I) HEENT: normocephaly Neck: supple neck Cardiac: regular rate and rhythm, tachycardia Lungs: clear to auscultation Neuro: other (sedated) Abdomen: active bowel sounds Extremities: no edema Skin: clear Musculoskeletal: normal range of motion - Labs Result Diagrams: 09/24/19 04:25 09/27/19 04:01 Troponin/CKMB Troponin I 0.090 ng/mL (< 0.028) H 09/23/19 04:36 - Telemetry Sinus rhythms and dysrhythmias: sinus tachycardia Supraventricular conduction: other (Atrial tachycardia.) - Assessment/Plan Assessment/Plan: 1. Atrial tachycardia. 2. S/P bilateral lung transplant. 3. Normal LV function at 50-55% PLAN: - He is in sinus tach at 110's to 120's and he has runs of atrial tach up to the 180's to 200's. and then back to sinus tach. Later in the day he started to sustain his atrial tach in the 180's so he was started on amiodaorne. - Continue max dose metoprolol If persists may need EP. - Dr. Sutton to see tomorrow. - Critical Care Time Critical care time (mins): 30
[2019-09-27] MEDS: Amiodarone 450 MG, Admixture Fee 1 EACH in Dextrose 5% in Water 250 ML IVPB SCH ×2 (16:24→20:05)
[2019-09-27] MEDS: Atorvastatin Calcium 40 MG TAB PER TUBE SCH (20:47)
[2019-09-28] MEDS: methylPREDNISolone Sod Succ 40 MG VIAL IVP SCH ×5 (00:10→23:54)
[2019-09-28] MEDS: HumaLOG 300 UNITS/3 ML VIAL SC PRN ×4 (04:33→22:11)
[2019-09-28 04:59] LABS: ALT (SGPT) 46 U/L (8-55); AST (SGOT) 33 U/L (5-34); Alkaline Phosphatase 99 U/L (40-110); Anion Gap 13 mmol/L (10-20); BUN (Urea Nitrogen) 15 mg/dL (8.4-25.7); Bilirubin, Total 0.4 mg/dL (0.2-1.2); Calc. Creatinine Clearance 108 mL/min (70-130); Carbon Dioxide 29 mmol/L (22-29); Chloride 99 mmol/L (98-107); Estimated GFR-MDRD Greater than 90; Globulin 2.4 g/dL (2.4-3.5); Glucose 219 mg/dL (70-105); Potassium 3.6 mmol/L (3.5-5.1); Protein, Total 5.4 g/dL (6.0-8.3); Sodium 137 mmol/L (136-145)
[2019-09-28 05:00] LABS: Magnesium 1.7 mg/dL (1.6-2.6); Phosphorus 2.1 mg/dL (2.3-4.7)
[2019-09-28] MEDS: Metoprolol Tartrate 50 MG TAB PER TUBE SCH ×2 (06:35→17:30)
[2019-09-28] MEDS: metroNIDAZOLE 500 MG in Premix Bag 1 BAG IVPB SCH ×3 (06:35→21:16)
[2019-09-28] MEDS ORDERED: Magnesium 2 GM/50 ML 1 GM in Premix Bag 1 BAG IVPB SCH (06:45)
[2019-09-28] MEDS ORDERED: PHOS-NAK 1 PKT PACK PER TUBE SCH (06:45)
--- NOTE | 2019-09-28 06:52 | PDOC.FM ---
- Subjective Subjective: Pt intubated and sedated this morning. Per nursing, sedation was increased overnight due to agitation. He has been afebrile Cardiology was consulted last night for persistent tachycardia of about 40 minutes, 110-180s. He was started on an amiodarone drip which is currently running at 5 mg/min. - Objective Vital Signs & Weight: Vital Signs (12 hours) Temp Pulse Resp BP Pulse Ox 09/28/19 06:00 24 H 09/28/19 04:00 98.8 F 29 H 09/28/19 02:03 121 H 137/86 09/28/19 02:00 26 H 09/28/19 01:05 94 23 H 100 09/28/19 00:00 98.9 F 20 09/27/19 22:15 99 125/78 09/27/19 22:00 18 09/27/19 20:00 18 100 09/27/19 19:00 99.7 F H Weight Admit Weight 58.06 kg Weight 57.7 kg Most Recent Monitor Data Heart Rate from ECG 106 NIBP 115/68 NIBP BP-Mean 83 Respiration from ECG 22 SpO2 100 I&O: 09/26/19 09/27/19 09/28/19 05:59 06:59 06:59 Intake Total 1794.5 Output Total 1907 Balance -112.5 Result Diagrams: 09/24/19 04:25 09/28/19 04:00 Phys Exam - Physical Examination intubated and sedated, unresponsive to painful stimuli scleral injection and swelling Neck: no nodes, supple Respiratory: no wheezing, clear to auscultation bilateral Cardiovascular: RRR, no significant murmur Gastrointestinal: soft, positive bowel sounds mild edema bilateral upper and lower extremities L hand > R hand Deviation from normal: intubated and sedated Skin: no rash, normal turgor, cap refill <2 seconds Dx/Plan (1) Altered mental state Code(s): R41.82 - ALTERED MENTAL STATUS, UNSPECIFIED Status: Acute (2) COPD (chronic obstructive pulmonary disease) Status: Chronic (3) Diabetes mellitus type 2 in nonobese Code(s): E11.9 - TYPE 2 DIABETES MELLITUS WITHOUT COMPLICATIONS Status: Chronic (4) GERD (gastroesophageal reflux disease) Code(s): K21.9 - GASTRO-ESOPHAGEAL REFLUX DISEASE WITHOUT ESOPHAGITIS Status: Chronic (5) Lung transplant status, bilateral Code(s): Z94.2 - LUNG TRANSPLANT STATUS Status: Chronic (6) Hypoglycemia Code(s): E16.2 - HYPOGLYCEMIA, UNSPECIFIED Status: Resolved (7) Seizure Code(s): R56.9 - UNSPECIFIED CONVULSIONS Status: Resolved (8) Acute on chronic respiratory failure with hypoxia and hypercapnia Code(s): J96.21 - ACUTE AND CHRONIC RESPIRATORY FAILURE WITH HYPOXIA; J96.22 - ACUTE AND CHRONIC RESPIRATORY FAILURE WITH HYPERCAPNIA Status: Acute (9) COPD exacerbation Code(s): J44.1 - CHRONIC OBSTRUCTIVE PULMONARY DISEASE W (ACUTE) EXACERBATION Status: Acute (10) Anxiety and depression Status: Chronic (11) Coronary artery disease Code(s): I25.10 - ATHSCL HEART DISEASE OF [place] CORONARY ARTERY W/O ANG PCTRS Status: Chronic (12) HLD (hyperlipidemia) Code(s): E78.5 - HYPERLIPIDEMIA, UNSPECIFIED Status: Chronic Qualifiers: (13) HTN (hypertension) Code(s): I10 - ESSENTIAL (PRIMARY) HYPERTENSION Status: Chronic Qualifiers: (14) Tachycardia Code(s): R00.0 - TACHYCARDIA, UNSPECIFIED Status: Resolved - Plan Plan: Acute metabolic encephalopathy 2/2 severe hypoglycemia - Blood glucose of 24 per EMS on admission, patient may have overdosed in insulin - Blood glucoses now stable - Pt remains intubated, sedated, and unresponsive - , MPOA, and family currently having discussions about whether to perform compassionate extubation and proceed with hospice - Palliative care following Acute on chronic hypoxic respiratory failure; hx of transplant rejection - Most likely 2/2 problem #1 w/ associated seizure-like activity. 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 - continue SABINA IV steroids, Duonebs, & abx for possible COPD exacerbation. Attempt to wean ventilatory support & sedation - Pulmonology, Dr. Judge, appreciate recommendations. Seizure-like activity, resolved - likely 2/2 severe hypoglycemia - Dr. Escobedo with neurology on board, appreciate recs. - EEG did not show persistent or ongoing epileptiform activity but did show diffuse slowing c/w encephalopathic process per neuro. Brain MRI to be done once patient less agitated & able to remain still. - Lorazepam prn, SABINA keppra BID. - Will add valproate 500mg BID if keppra not adequate for seizure control per neuro. Tachycardia - Amiodarone started 09/26 per cardiology recs for persistent atrial tachycardia - Cardiology, Dr. Sutton to see today. Appreciate recs. Hypomagnesemia, Hypophosphatemia - monitor and replace as necessary Right shoulder soft tissue infection - Right should notable for sinus tract w/ purulent discharge on admission. s/p IV vancomycin x 5 days. - Wound care consulted Suspected Aspiration pneumonitis/COPD exacerbation - See plan for acute on chronic hypoxic respiratory failure. Remains stable on mechanical ventilation. COPD s/p Lung Transplantation 2016, and transplant rejection - Will continue anti-rejection meds per pulm recs. - Tacrolimus level within therapeutic window post-transplant per guidelines at 6.7 on admission but level drawn on 09/22 was low at 1.7. Will adjust dosing PRN. HFpEF - EF 50-55% per ECHO. Continue home metoprolol. CAD - Multi-vessel disease found on cath per cards. Continue ASA & statin. IDDM II, steroid induced - 15U lantus SABINA QAM - SSI Hypertension - Will continue home meds Anxiety and depression - hold meds GERD - Famotidine BID Hypokalemia, resolved Metabolic alkalosis, resolved Disposition/LOS: Remains guarded. Will continue close monitoring in the CCU pending family's decision on whether to proceed w/ trach vs. compassionate extubation w/ transition to hospice. VTE ppx: Lovenox GI ppx: Pepcid Abx: Levaquin & metronidazole (started 09/19) IVFs: KVO Drains/lines/tubes: ET & NG tubes, hernandez 09/19; bilat AC peripheral lines started /placed on 09/23/19. R hand line placed on 09/22/19 Code: Full PCP: TOÑA Olea Addendum - Attending - Attending Attestation Date/Time: 09/28/19 1028 I personally evaluated the patient and discussed the management with Dr. Hernandez I agree with the History, Examination, Assessment and Plan documented above with any addition or exceptions noted below. HD# 8 Remains intubated in the ICU. Moving all extremities. Tolerating CPAP this morning. Not really following commands. Plan today: Follow up with pulm for possible extubation. Still needs MRI. Follow up with neuro recs. Awaiting to see patient's functional status. Continue close monitoring of I/Os. Would likely benefit form Lasix dose. FB + 400 mL. Glucose stable and elevated. Continue insulin adjustments. Atrial tach improved on amniodorone drip. Cards following. Continue to follow up on wound care of shoulder. [place]
[2019-09-28] MEDS: Amlodipine 5 MG TAB PER TUBE SCH (08:43)
[2019-09-28] MEDS: Enoxaparin Sodium 40 MG/0.4 ML SYRINGE SC SCH (08:43)
[2019-09-28] MEDS: Nystatin 500,000 UNITS/5 ML UDCUP SSW SCH ×4 (08:43→20:54)
[2019-09-28] MEDS: Famotidine/PF 20 mg/2ml Vial SLOW IVP SCH ×2 (08:44→20:54)
[2019-09-28] MEDS: Tacrolimus 0.5 MG CAP PER TUBE SCH ×2 (08:44→20:54)
[2019-09-28] MEDS: Aspirin Chewable 81 MG TAB PER TUBE SCH (08:44)
[2019-09-28] MEDS: Insulin Glargine 15 UNITS in Pre-Filled Syringe 1 EACH SC SCH (08:45)
[2019-09-28 09:57] VITALS: BMI 18.8
--- NOTE | 2019-09-28 10:40 | PDOC.PALPN ---
Palliative Progress Note - Subjective Intubated, non verbal, opens eyes. - Objective Vital Signs: Vital Signs - Most Recent Temp Pulse Resp BP Pulse Ox 99.4 F 81 21 H 137/86 100 09/28/19 08:00 09/28/19 08:43 09/28/19 08:00 09/28/19 02:03 09/28/19 08:00 - Physical Exam Constitutional: encephalitic, ill appearing HEENT: EOMI, moist MMs, sclera anicteric Deviation from normal: mechanical ventilation Gastrointestinal: soft, non-tender, incontinent Genitourinary: hernandez catheter Musculoskeletal: muscle wasting Neurology: no focal deficits Skin: cap refill <2 seconds, fragile Deviation from normal: encephalopathic - Assessment (1) Palliative care encounter Code(s): Z51.5 - ENCOUNTER FOR PALLIATIVE CARE Current Visit: Yes Status: Acute (2) Altered mental state Code(s): R41.82 - ALTERED MENTAL STATUS, UNSPECIFIED Current Visit: Yes Status: Acute (3) COPD (chronic obstructive pulmonary disease) Current Visit: Yes Status: Chronic (4) Diabetes mellitus type 2 in nonobese Code(s): E11.9 - TYPE 2 DIABETES MELLITUS WITHOUT COMPLICATIONS Current Visit : Yes Status: Chronic (5) HFrEF (heart failure with reduced ejection fraction) Code(s): I50.20 - UNSPECIFIED SYSTOLIC (CONGESTIVE) HEART FAILURE Current Visit: Yes Status: Chronic (6) Lung transplant status, bilateral Code(s): Z94.2 - LUNG TRANSPLANT STATUS Current Visit: Yes Status: Chronic (7) Anxiety and depression Current Visit: No Status: Chronic - Plan Plan: Discussed with Dr Hernandez. Dr Judge attempting to wean vent today. Will reach out to family to have another family meeting 09/29/2019. Calls made with no answer, message left. Will continue to follow up to establish family meeting. [] minutes spent on this encounter with >50% of the time in counseling and coordination of care. - ROS Non Response: due to endotracheal tube, due to mental status
[2019-09-28] MEDS: Amiodarone 450 MG, Admixture Fee 1 EACH in Dextrose 5% in Water 250 ML IVPB SCH (11:48)
[2019-09-28] MEDS: Lorazepam 2 MG/ML VIAL SLOW IVP PRN (15:56)
--- NOTE | 2019-09-28 17:11 | PRG ---
DATE OF SERVICE: 09/28/2019 SERVICE: Pulmonary Medicine. INTERVAL HISTORY: The patient is doing fine from respiratory standpoint. I put him on a spontaneous breathing trial simply to see how he do today. He did fantastic. That being said, with a long sedation holiday, he really has not woken up appropriately. Otherwise, there has been no interval change to his condition. PHYSICAL EXAMINATION: VITAL SIGNS: Afebrile, currently with a T-max of 99.8, pulse is 108, blood pressure 128/85, respirations 21, and saturation 100%, currently on 31% FiO2 delivered via a PEEP of 5. GENERAL: The patient is intubated. He is on minimal sedation, but poorly responsive. HEENT: Normocephalic and atraumatic. Sclerae are white. Conjunctivae are pink. Oral mucosa is moist without lesions. LUNGS: Decent air entry. There is a prolonged expiratory phase with wheezing present. No rhonchi or crackles are appreciated today. HEART: Normal rate and regular. ABDOMEN: Soft, nontender, and nondistended. Bowel sounds are positive. MUSCULOSKELETAL: No cyanosis or clubbing. There is no pitting in the bilateral lower extremities. NEUROLOGIC: The patient has pupils that are equal, round, and reactive. His brainstem reflexes are intact. He is comfortably overbreathing the ventilator. He has withdraw from noxious stimuli to the upper extremities, he moves his lower extremities. He spontaneously opens his eyes. That being said, he does not attend. He is not following any simple commands. ASSESSMENT: 1. Acute on chronic hypoxic respiratory failure. 2. Chronic obstructive pulmonary disease with acute exacerbation, resolved. 3. Bronchiolitis obliterans, suspected. 4. Medical noncompliance with anti-rejection lung medications. 5. Brain injury secondary to severe hypoglycemic spell. 6. Seizure on presentation, likely secondary to hypoglycemia. DISCUSSION AND PLAN: The patient is doing poorly from a neurologic standpoint. We are going to continue our family discussions, but at this point, the likelihood of a meaningful recovery is essentially non-existent. Furthermore, because of his noncompliance with his anti-rejection medications, his lungs have been damaged to be on repair. He will not be a candidate for further lung transplantation procedures. As such, I believe at this point, it would be most appropriate to transition over to comfort care. We will reach out to his transplant center, who is suggesting that. We have reached up to his transplant center, who have suggested that transition over to comfort measures would be appropriate at this time from their perspective. CRITICAL CARE TIME: 30 minutes. Job ID: [id number]
[2019-09-28 19:13] LABS: Tacrolimus None Detected ng/mL (2.0-20.0)
[2019-09-28] MEDS: Atorvastatin Calcium 40 MG TAB PER TUBE SCH (20:54)
[2019-09-29] MEDS: Lorazepam 2 MG/ML VIAL SLOW IVP PRN (02:09)
[2019-09-29] MEDS: Amiodarone 450 MG, Admixture Fee 1 EACH in Dextrose 5% in Water 250 ML IVPB SCH (02:50)
[2019-09-29] MEDS: HumaLOG 300 UNITS/3 ML VIAL SC PRN ×2 (03:44→10:35)
[2019-09-29] MEDS: metroNIDAZOLE 500 MG in Premix Bag 1 BAG IVPB SCH ×2 (05:12→12:54)
[2019-09-29] MEDS: methylPREDNISolone Sod Succ 40 MG VIAL IVP SCH ×2 (05:13→12:47)
[2019-09-29] MEDS: Metoprolol Tartrate 50 MG TAB PER TUBE SCH (05:13)
[2019-09-29 05:23] LABS: Anion Gap 14 mmol/L (10-20); BUN (Urea Nitrogen) 16 mg/dL (8.4-25.7); Calc. Creatinine Clearance 107 mL/min (70-130); Calcium 7.8 mg/dL (7.8-10.44); Carbon Dioxide 28 mmol/L (22-29); Chloride 97 mmol/L (98-107); Estimated GFR-MDRD Greater than 90; Glucose 235 mg/dL (70-105); Magnesium 1.8 mg/dL (1.6-2.6); Phosphorus 2.1 mg/dL (2.3-4.7); Potassium 4.4 mmol/L (3.5-5.1); Sodium 135 mmol/L (136-145)
--- NOTE | 2019-09-29 06:54 | PDOC.FM ---
- Subjective Subjective: Pt remains intubated, did well on cpap trial yesterday. He wakes up and opens his eyes, does not follow commands. Withdraws to pain but does not have purposeful movements. Afebrile overnight. Stooling well. - Objective Vital Signs & Weight: Vital Signs (12 hours) Temp Pulse Resp BP Pulse Ox 09/29/19 06:00 13 09/29/19 04:00 99.2 F 24 H 09/29/19 02:51 99 115/89 09/29/19 02:00 24 H 09/29/19 00:46 87 24 H 99 09/29/19 00:00 98.3 F 21 H 09/28/19 23:17 85 136/83 09/28/19 22:00 19 09/28/19 20:00 98.9 F 17 100 Weight Admit Weight 58.06 kg Weight 57.8 kg Most Recent Monitor Data Heart Rate from ECG 83 NIBP 167/82 NIBP BP-Mean 110 Respiration from ECG 18 SpO2 100 I&O: 09/27/19 09/28/19 09/29/19 06:59 06:59 06:59 Intake Total 2308.5 2795.7 Output Total 1907 1725 Balance 401.5 1070.7 Result Diagrams: 09/24/19 04:25 09/29/19 03:46 Phys Exam - Physical Examination Constitutional: NAD laying in bed with eyes closed HEENT: PERRLA Neck: no nodes, supple Respiratory: no wheezing, clear to auscultation bilateral Cardiovascular: RRR, no significant murmur Gastrointestinal: soft, non-tender, no distention, positive bowel sounds bilateral mild edema upper extremities Neurological: moves all 4 limbs Deviation from normal: withdraws to pain, no purposeful movements, does not follow comamnds Skin: no rash, normal turgor, cap refill <2 seconds Dx/Plan (1) Altered mental state Code(s): R41.82 - ALTERED MENTAL STATUS, UNSPECIFIED Status: Acute (2) COPD (chronic obstructive pulmonary disease) Status: Chronic (3) Diabetes mellitus type 2 in nonobese Code(s): E11.9 - TYPE 2 DIABETES MELLITUS WITHOUT COMPLICATIONS Status: Chronic (4) GERD (gastroesophageal reflux disease) Code(s): K21.9 - GASTRO-ESOPHAGEAL REFLUX DISEASE WITHOUT ESOPHAGITIS Status: Chronic (5) Lung transplant status, bilateral Code(s): Z94.2 - LUNG TRANSPLANT STATUS Status: Chronic (6) Hypoglycemia Code(s): E16.2 - HYPOGLYCEMIA, UNSPECIFIED Status: Resolved (7) Seizure Code(s): R56.9 - UNSPECIFIED CONVULSIONS Status: Resolved (8) Acute on chronic respiratory failure with hypoxia and hypercapnia Code(s): J96.21 - ACUTE AND CHRONIC RESPIRATORY FAILURE WITH HYPOXIA; J96.22 - ACUTE AND CHRONIC RESPIRATORY FAILURE WITH HYPERCAPNIA Status: Acute (9) COPD exacerbation Code(s): J44.1 - CHRONIC OBSTRUCTIVE PULMONARY DISEASE W (ACUTE) EXACERBATION Status: Acute (10) Anxiety and depression Status: Chronic (11) Coronary artery disease Code(s): I25.10 - ATHSCL HEART DISEASE OF [place] CORONARY ARTERY W/O ANG PCTRS Status: Chronic (12) HLD (hyperlipidemia) Code(s): E78.5 - HYPERLIPIDEMIA, UNSPECIFIED Status: Chronic Qualifiers: (13) HTN (hypertension) Code(s): I10 - ESSENTIAL (PRIMARY) HYPERTENSION Status: Chronic Qualifiers: (14) Tachycardia Code(s): R00.0 - TACHYCARDIA, UNSPECIFIED Status: Resolved - Plan Plan: Acute metabolic encephalopathy 2/2 severe hypoglycemia - Pt remains intubated, sedated; withdraws to pain, does not follow commands, does not make purposeful movements. - Palliative care following, family meeting today at noon to discuss terminal superintendent prognosis and custodial care versus pursuing hospice. Will also discuss extubation. Acute on chronic hypoxic respiratory failure - Most likely 2/2 problem #1 w/ associated seizure-like activity. - continue SABINA IV steroids, Duonebs, & abx for possible COPD exacerbation. - Attempt to wean ventilatory support, patient is improving from a pulmonary stand point. - Pulmonology, Dr. Judge, appreciate recommendations. Seizure-like activity, resolved - likely 2/2 severe hypoglycemia - Dr. Escobedo with neurology on board, appreciate recs. - EEG did not show persistent or ongoing epileptiform activity but did show diffuse slowing c/w encephalopathic process per neuro. - Brain MRI to be done once patient less agitated & able to remain still. - Lorazepam prn, SABINA keppra BID. - Will add valproate 500mg BID if keppra not adequate for seizure control per neuro. Tachycardia - pulse in 120s overnight - Amiodarone started 09/26 per cardiology recs for persistent atrial tachycardia - continue beta juanjose - Cardiology, Dr. Sutton to see today. Appreciate recs. Hypomagnesemia, Hypophosphatemia - monitor and replace as necessary Right shoulder soft tissue infection - Right should notable for sinus tract w/ purulent discharge on admission. s/p IV vancomycin x 5 days. - Wound care consulted Suspected Aspiration pneumonitis/COPD exacerbation - See plan for acute on chronic hypoxic respiratory failure. Remains stable on mechanical ventilation. May be able to wean off ventilator today or tomorrow, also pending discussion with family. COPD s/p Lung Transplantation 2017, and transplant rejection - Pt has been off of anti-rejection medications for past few months per family; he is not a candidate for transplant at this point - Restarted anti-rejection meds per pulm recs. - Tacrolimus level within therapeutic window post-transplant per guidelines at 6.7 on admission but level drawn on 09/22 was low at 1.7. Will adjust dosing PRN. HFpEF - EF 50-55% per ECHO. Continue home metoprolol. CAD - Multi-vessel disease found on cath per cards. Continue ASA & statin. IDDM II, steroid induced - increase lantus to 18 u QAM - SSI Hypertension - Will continue home meds Anxiety and depression - hold meds GERD - Famotidine BID Hypokalemia, resolved Metabolic alkalosis, resolved Disposition/LOS: Remains guarded. Will continue close monitoring in the CCU pending family's decision on whether to pursue terminal superintendent care with possible trach/peg tube or to pursue comfort measures. VTE ppx: Lovenox GI ppx: Pepcid Abx: Levaquin & metronidazole (started 09/19) IVFs: KVO Drains/lines/tubes: ET & NG tubes, hernandez 09/19; right midline started on 09/23/19. R hand line placed on 09/22/19 Code: Full PCP: TOÑA Olea
[2019-09-29] MEDS ORDERED: Magnesium 2 GM/50 ML 2 GM in Premix Bag 1 BAG IVPB SCH (07:45)
[2019-09-29] MEDS: Aspirin Chewable 81 MG TAB PER TUBE SCH (08:08)
[2019-09-29] MEDS: Famotidine/PF 20 mg/2ml Vial SLOW IVP SCH (08:08)
[2019-09-29] MEDS: Amlodipine 5 MG TAB PER TUBE SCH (08:08)
[2019-09-29] MEDS: Nystatin 500,000 UNITS/5 ML UDCUP SSW SCH ×2 (08:08→12:57)
[2019-09-29] MEDS: PHOS-NAK 1 PKT PACK PER TUBE SCH ×2 (08:09→17:24)
[2019-09-29] MEDS: Tacrolimus 0.5 MG CAP PER TUBE SCH (08:09)
[2019-09-29] MEDS: Enoxaparin Sodium 40 MG/0.4 ML SYRINGE SC SCH (08:09)
[2019-09-29] MEDS ORDERED: Insulin Glargine 18 UNITS in Pre-Filled Syringe 1 EACH SC SCH (09:00)
[2019-09-29] MEDS ORDERED: Dronedarone HCl 400 MG TAB PO SCH ×2 (09:15→17:00)
[2019-09-29 11:57] VITALS: TEMP 99.6
--- NOTE | 2019-09-29 13:14 | PRG ---
DATE OF SERVICE: 09/29/2019 ADDENDUM: This is an addendum to the note of Dr. Malinda Hernandez. Mr. Turcios is a 59-year-old black male patient, who suffered significant anoxic brain injury following a prolonged hypoglycemic episode at home. He will open his eyes but not purposely. A discussion will be held with his family today about his long-term care. He is also likely nearing time where he can be extubated, this to be done at the discretion of Dr. Judge. We will continue to follow with the Intensive Care Team. Job ID: [id number]
--- NOTE | 2019-09-29 14:18 | PRG ---
DATE OF SERVICE: 09/29/2019 INTERVAL HISTORY: The patient is doing fine from respiratory standpoint. 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 He does not follow any simple commands. When you call his name, creates some discomfort. He will now look over in your direction. He feels as though he is attending at this point. That being said, he is not doing anything of purpose. There are no significant overnight events. PHYSICAL EXAMINATION: VITAL SIGNS: T-max 100.4, pulse 102, blood pressure 148/88, respirations 16, saturation 100%, currently on 31% FiO2 delivered via mechanical ventilator with a PEEP of 5. GENERAL: The patient is intubated. On very little sedation. HEENT: Normocephalic and atraumatic. Sclerae white. Conjunctivae pink. Oral mucosa is moist without lesions. LUNGS: Decent air entry. There is a prolonged expiratory phase. Rhonchi sounds are present. No wheezing is appreciated. HEART: Normal rate and regular. ABDOMEN: Soft, nontender, nondistended. Bowel sounds are positive. MUSCULOSKELETAL: No cyanosis or clubbing. No pitting in the bilateral lower extremities. NEUROLOGIC: The patient does not have a cough with deep suctioning as a sequela of his lung transplantation status. That being said, pupils are equal and round and reactive. He is overbreathing the ventilator and demonstrates good gag. LABORATORY DATA: WBC 9.9, hemoglobin 12.3, and platelets 195,000. Basic metabolic profile is unremarkable. Phosphorus 2.1, magnesium 1.8. Urinalysis is negative. Vancomycin 13.3. Tacrolimus level is below the assay limit. ASSESSMENT: 1. Tqjuc-py-kuxzdsg hypoxic respiratory failure. 2. Bronchiolitis obliterans. 3. Medical noncompliance with anti-rejection lung medications. 4. Acute brain injury secondary to hypoglycemic spell, severe. 5. Seizure on presentation secondary to hypoglycemia. DISCUSSION AND PLAN: The patient was contemplating moving forward with hospice in the outpatient setting. I will continue family discussions moving forward. At this point, his mentation is not such that he can tolerate extubation. That being said, we would be able to extubate him if he were to transition over to comfort care only. His transplantation service is suggesting they have nothing to offer him and recommending comfort care only. We will continue having conversations with the family to this end. Pulmonary/Critical Care will continue to follow along. CRITICAL CARE TIME: 30 minutes. Job ID: [id number]
[2019-09-29] MEDS ORDERED: Scopolamine 1.5 mg/72 hour Patch TD SCH (15:30)
[2019-09-29 15:34] VITALS: BP 118/72
[2019-09-29] MEDS ORDERED: Lorazepam 2 MG/ML VIAL SLOW IVP SCH ×2 (16:00→18:00)
[2019-09-29] MEDS: Morphine 2 MG/ML SYRINGE SLOW IVP PRN (16:12)
[2019-09-29] MEDS ORDERED: Morphine 2 MG/ML SYRINGE SLOW IVP PRN (16:15)
--- NOTE | 2019-09-29 16:56 | PDOC.PALPN ---
Palliative Progress Note - Subjective mechanical intubation, encephalopatinc, intermittently opens eyes. - Objective Vital Signs: Vital Signs - Most Recent Temp Pulse Resp BP Pulse Ox 99.6 F 102 H 17 118/72 100 09/29/19 11:54 09/29/19 15:34 09/29/19 14:00 09/29/19 15:34 09/29/19 08:00 - Physical Exam Constitutional: encephalitic, ill appearing HEENT: moist MMs Deviation from normal: mechanical ventilation Cardiovascular: diminished peripheral pulses Gastrointestinal: soft, incontinent Genitourinary: hernandez catheter Musculoskeletal: edema present, muscle wasting Skin: no lesions, no rash, fragile Deviation from normal: encephalopathic - Assessment (1) Palliative care encounter Code(s): Z51.5 - ENCOUNTER FOR PALLIATIVE CARE Current Visit: Yes Status: Acute (2) Altered mental state Code(s): R41.82 - ALTERED MENTAL STATUS, UNSPECIFIED Current Visit: Yes Status: Acute (3) COPD (chronic obstructive pulmonary disease) Current Visit: Yes Status: Chronic (4) Diabetes mellitus type 2 in nonobese Code(s): E11.9 - TYPE 2 DIABETES MELLITUS WITHOUT COMPLICATIONS Current Visit : Yes Status: Chronic (5) HFrEF (heart failure with reduced ejection fraction) Code(s): I50.20 - UNSPECIFIED SYSTOLIC (CONGESTIVE) HEART FAILURE Current Visit: Yes Status: Chronic (6) Lung transplant status, bilateral Code(s): Z94.2 - LUNG TRANSPLANT STATUS Current Visit: Yes Status: Chronic (7) Anxiety and depression Current Visit: No Status: Chronic - Plan Plan: Assessed patient/met with family and Dr Hernandez at 12:30 for over an hour. Patient , sister, three daughters and son-in-law present. Discussed option of placing PEG and weighing against what patient would desire. Discussed resuscitation status and termite technician goal of care for patient. [email or web address] for [facility]. and wished to discuss PEG and over all Goal of Care. 3pm family requested to meet, stated that they wished to transition to comfort measures with Hospice and extubate patient. Expressed that they did not desire a PEG but would like the oralgastric/NG tube to remain to continue feedings. [facility]/Amber Jewell RN met with family and initiated transfer to [facility]. Father Doug with Spiritual Care contacted for family support and to pray over patient and with family. Scopolamine Patch and Ativan ordered. Dr Hernandez aware and communicated with family. OOHDNAR completed as well as DNAR by Juan Cardenas. Emotional support provided to family. [90] minutes spent on this encounter with >50% of the time in counseling and coordination of care. - ROS Non Response: due to endotracheal tube, due to mental status
[2019-09-29] MEDS ORDERED: Morphine 2 MG/ML SYRINGE SLOW IVP SCH (18:00)
--- NOTE | 2019-09-30 10:44 | DIS ---
DATE OF ADMISSION: 09/20/2019 DATE OF DISCHARGE: 09/29/2019 RESIDENT: Malinda Hernandez MD ADMITTING ATTENDING: Gallo Callejas MD DISCHARGE ATTENDING: Kyrie Saez MD CONSULTATIONS: 1. Cardiology, Dr. Sutton, 09/22/2019. 2. Neurology, Dr. Gregg Trujillo. 3. 09/20/2019. 4. Pulmonology, Dr. Judge, 09/20/2019. PROCEDURES: 1. Chest x-ray, 09/20/2019. Impression, no acute finding. 2. Brain CT, 09/20/2019. Impression: No intracranial abnormality. 3. Chest x-ray, 09/21/2019, no acute cardiopulmonary abnormality. PRIMARY DIAGNOSES: 1. Acute metabolic encephalopathy secondary to severe hypoglycemia. 2. Gwqgq-cl-nsjhzsm hypoxic respiratory failure. 3. Seizure-like activity, resolved. SECONDARY DIAGNOSES: 1. Atrial tachycardia. 2. Hypomagnesemia. 3. Hypophosphatemia. 4. Right shoulder soft tissue infection. 5. Chronic obstructive pulmonary disease exacerbation. 6. Suspected aspiration pneumonitis. 7. Status post lung transplantation in 2017. 8. Lung transplant rejection. 9. Heart failure, preserved ejection fraction. 10. Coronary artery disease. 11. Insulin-dependent diabetes mellitus type 2, steroid-induced. 12. Hypertension. 13. Anxiety. 14. Major depressive disorder. 15. Gastroesophageal reflux disease. 16. Hypokalemia, resolved. 17. Metabolic alkalosis, resolved. DISCHARGE MEDICATIONS: 1. Morphine 2 mg q.1 hour p.r.n. 2. Scopolamine patches p.r.n. for excessive secretions. DISCONTINUED MEDICATIONS: Discontinued all home medications. HISTORY OF PRESENT ILLNESS/HOSPITAL COURSE: This is a 59-year-old male who presented with hypoglycemic episode. The patient was found down at home after being down for an unknown amount of time with a blood glucose of 24 per EMS. The patient subsequently had seizure like activity. He was intubated and sedated due to inability to protect his airway. The patient was sent to the ICU.. EEG was done, which showed diffuse slowing consistent with encephalopathic process per Neurology. The patient was unable to tolerate an MRI due to being intubated as well as agitated. The patient was started on steroids and antibiotics for COPD exacerbation as well as possible aspiration pneumonitis. His respiratory status improved throughout his stay. However, his mental status made minimal improvement. On discharge, he was withdrawing to pain, turning to sound. The patient was not able to follow commands and would not track with his eyes. Hospice and palliative care were consulted and came and discussed plans with the family. Family decided to opt for extubation and transition to inpatient hospice care. His medications were discontinued and he was placed on comfort measures. The patient was extubated on 09/29/2019, and we will continue to follow with inpatient hospice. The patient has a history of severe COPD requiring lung transplantation in 2017. Per family, he had discontinued taking his anti-rejection medications a few months ago. The transplant Center was called and they said he is no longer a candidate for any type of lung transplant due to noncompliance. The patient was restarted on his antirejection medications which were discontinued when he transitioned to hospice care. The patient experienced atrial tachycardia while he was here. Cardiology was consulted and he was started on amiodarone drip as well as continued on beta juanjose. His heart rate improved, but he would still have intermittent tachycardia. This medication was discontinued, and the patient was transitioned to hospice care. DISPOSITION: Guarded. DISCHARGE INSTRUCTIONS: 1. Location: Inpatient hospice. 2. Diet: Feedings through NG tube per family request. 3. Activity: As tolerated. 4. Followup: Follow up with the necessary at this time and continue pursuing comfort measures with inpatient hospice care. Job ID: [id number] MTDD
[2019-09-30 16:13] LABS: Tacrolimus None Detected ng/mL (2.0-20.0)
[2019-09-30 16:13] LABS: Tacrolimus None Detected ng/mL (2.0-20.0)
== END 2019-09-29 17:54 | disposition hospice, inpatient (51) | DRG 637 ==
LOC: ERS 08:52 → CCU 12:12 → T4-B 09-29 18:03
PROVIDERS: ADMIT Family Medicine; ATTEND Family Medicine
PROC: 5A1955Z Respiratory Ventilation, Greater than 96 Consecutive Hours (ICD-10-PCS; principal; 2019-09-20)
PROC: 0BH17EZ Insertion of Endotracheal Airway into Trachea, Via Natural or Artificial Opening (ICD-10-PCS; 2019-09-20)
DX: E11.649 Type 2 diabetes mellitus with hypoglycemia without coma (principal); G93.41 Metabolic encephalopathy; J96.21 Acute and chronic respiratory failure with hypoxia; Z66 Do not resuscitate; Z51.5 Encounter for palliative care; J69.0 Pneumonitis due to inhalation of food and vomit; I47.1 Supraventricular tachycardia; J44.1 Chronic obstructive pulmonary disease with (acute) exacerbation; I50.32 Chronic diastolic (congestive) heart failure; E87.3 Alkalosis; Z94.2 Lung transplant status; R40.2342 Coma scale, best motor response, flexion withdrawal, at arrival to emergency department; R40.2112 Coma scale, eyes open, never, at arrival to emergency department; R40.2212 Coma scale, best verbal response, none, at arrival to emergency department; G93.1 Anoxic brain damage, not elsewhere classified; E83.39 Other disorders of phosphorus metabolism; L08.89 Other specified local infections of the skin and subcutaneous tissue; I25.10 Atherosclerotic heart disease of native coronary artery without angina pectoris; I11.0 Hypertensive heart disease with heart failure; F32.9 Major depressive disorder, single episode, unspecified; E83.42 Hypomagnesemia; K21.9 Gastro-esophageal reflux disease without esophagitis; E87.6 Hypokalemia; G47.33 Obstructive sleep apnea (adult) (pediatric); R56.9 Unspecified convulsions; F41.1 Generalized anxiety disorder; R00.1 Bradycardia, unspecified; Z88.1 Allergy status to other antibiotic agents; Z79.899 Other long term (current) drug therapy; Z79.82 Long term (current) use of aspirin; Z79.51 Long term (current) use of inhaled steroids; Z79.52 Long term (current) use of systemic steroids; Z95.5 Presence of coronary angioplasty implant and graft; Z90.49 Acquired absence of other specified parts of digestive tract; Z87.891 Personal history of nicotine dependence
CPT/HCPCS: 31500; 36415; 36416; 51702; 70450; 71045; 80048; 80053; 80197; 80202; 80306; 80307; 81003; 82550; 82805; 83605; 83690; 83735; 83880; 84100; 84145; 84146; 84443; 84484; 85025; 87040; 87070; 87086; 87186; 87205; 87804; 93005; 93010; 93306; 94002; 94003; 94640; 95816; 95819; 96360; 96361; 96365; 96366; 96374; 96375; J0282; J1100; J1120; J1160; J1200; J1650; J1815; J1953; J1956; J2060; J2270; J2704; J2920; J3010; J3370; J3475; J3480; J3490; J7050; J7070; J7507; J7620; J8499; S0028

== ENCOUNTER 2019-09-29 18:23 | Inpatient (IN) | payer MEDICARE, OTHER ==
[2019-09-29] MEDS: Morphine 2 MG/ML SYRINGE SLOW IVP PRN ×3 (18:35→22:59)
[2019-09-29] MEDS: Lorazepam 2 MG/ML VIAL SLOW IVP PRN ×3 (18:42→22:59)
[2019-09-30] MEDS: Morphine 2 MG/ML SYRINGE SLOW IVP SCH ×12 (01:08→23:49)
[2019-09-30] MEDS: Lorazepam 2 MG/ML VIAL SLOW IVP SCH ×11 (01:08→21:33)
[2019-09-30 20:42] VITALS: BP 141/107; TEMP 97.9
[2019-10-01] MEDS: Lorazepam 2 MG/ML VIAL SLOW IVP SCH ×3 (00:13→04:30)
[2019-10-01] MEDS: Morphine 2 MG/ML SYRINGE SLOW IVP SCH ×2 (02:31→04:30)
--- NOTE | 2019-10-02 12:03 | DIS ---
DATE OF ADMISSION: 09/29/2019 DATE OF DISCHARGE: 10/01/2019 SUMMARY: HISTORY OF PRESENT ILLNESS: This was a 59-year-old gentleman, who had a history of lung transplant and was admitted for severe hypoglycemia. The patient had severe COPD, required lung transplant, for which he was noncompliant with the medication. The patient had acute metabolic encephalopathy and multiorgan failure. The patient was terminally extubated. The patient on September 30, at 04:55 a.m. No complication was reported. the patient [place] [facility] [place] Job ID: [id number]
== END 2019-10-01 04:55 | disposition expired | DRG 189 ==
LOC: T4-B 18:23
PROVIDERS: ADMIT Internal Medicine Nephrology; ATTEND Internal Medicine Nephrology
DX: J96.01 Acute respiratory failure with hypoxia (principal); G93.41 Metabolic encephalopathy; Z94.2 Lung transplant status; I50.22 Chronic systolic (congestive) heart failure; Z51.5 Encounter for palliative care; F32.9 Major depressive disorder, single episode, unspecified; K21.9 Gastro-esophageal reflux disease without esophagitis; E11.649 Type 2 diabetes mellitus with hypoglycemia without coma; G47.33 Obstructive sleep apnea (adult) (pediatric); R56.9 Unspecified convulsions; I25.10 Atherosclerotic heart disease of native coronary artery without angina pectoris; E78.5 Hyperlipidemia, unspecified; I11.0 Hypertensive heart disease with heart failure; F41.1 Generalized anxiety disorder; J44.9 Chronic obstructive pulmonary disease, unspecified; Z91.14 Patient's other noncompliance with medication regimen; Z90.49 Acquired absence of other specified parts of digestive tract; Z95.5 Presence of coronary angioplasty implant and graft; Z87.891 Personal history of nicotine dependence
CPT/HCPCS: J2060; J2270